=== PATIENT | female | born 1980 | race Two or more races ===

== ENCOUNTER 2020-05-10 11:01 | Outpatient (RCR) | payer MEDICARE, MEDICAID, OTHER, SELFPAY | END 2020-05-12 12:14 | disposition home or self-care (01) | LOC: HO.WCC 11:01 | PROVIDERS: PCP Internal Medicine; Visit Provider Physician Assistant Surgical | DX: Z09 Encounter for follow-up examination after completed treatment for conditions other than malignant neoplasm (principal); E66.01 Morbid (severe) obesity due to excess calories | CPT/HCPCS: 99212 ==

== ENCOUNTER 2020-07-28 07:58 | Emergency (ER) | payer MEDICARE, MEDICAID, SELFPAY ==
[2020-07-28 08:04] VITALS: BP 141/88; PULSE 90; RESP 16; TEMP 36.9; O2SAT 97; BMI 42.7
--- NOTE | 2020-07-28 08:19 | XR_ITS ---
EXAMINATION: XR CHEST CLINICAL INFORMATION: Cough COMPARISON: Chest radiographs 06/21/2019, 04/13/2019 TECHNIQUE: Portable upright AP x2 views of the chest was obtained. FINDINGS: The lungs are clear and there is no airspace consolidation or groundglass opacity or effusion. The costophrenic sulci are clear. The heart is normal in size. The vascularity is normal. The hilar and mediastinal contours are unremarkable. No acute bony abnormality. Widening right acromioclavicular joint present without elevation clavicle. There is calcific tendinosis distal left superior rotator cuff likely at infraspinatus. Surgical clips seen base of neck left of midline. XR/XR chest 1V IMPRESSION: Lungs clear.
--- NOTE | 2020-07-28 08:40 | ED_ITS ---
HPI - General Adult General Chief complaint: General Medical Stated complaint: asthma Time Seen by Provider: 07/28/20 08:19 Source: patient Mode of arrival: ambulatory Limitations: no limitations History of Present Illness HPI narrative: Patient presents to ED for chronic cough, runny nose, watery eyes and sneezing for month. Patient denies any swelling of lower extremities, calf pain, recent surgery, recent long travel, chest pain on inspiration, coughing up blood. Patient states mild chest discomfort only when she coughs. Patient states her allergies has worsened over the past month and exacerbating her cough and asthma. Related Data Previous Rx's Medication Instructions Recorded benzonatate [Tessalon Perles] 100 mg PO TID PRN #20 cap 07/28/20 loratadine [Claritin] 10 mg PO DAILY #10 tab 07/28/20 prednisone 40 mg PO DAILY #10 tab 07/28/20 Allergies Allergy/AdvReac Type Severity Reaction Status Date / Time benralizumab [From FASENRA] Allergy Unknown AIRWAY Verified 07/28/20 08:09 DISTRESS dog dander [DOGS] Allergy Unknown ASTHMA Verified 07/28/20 08:09 dupilumab [From DUPIXENT] Allergy Unknown SKIN Verified 07/28/20 08:09 RASH/INFECTION pollen extracts [POLLEN] Allergy Unknown RUNNY NOSE Verified 07/28/20 08:09 penicillin Allergy Unknown Rash Uncoded 07/28/20 08:09 Review of Systems Review of Systems: Yes all other systems are reviewed and are negative Constitutional: Constitutional: Reports as per HPI and Reports no additional constitutional complaints Eyes: Eyes: Reports as per HPI and Reports no additional eye complaints ENT: Reports system reviewed and no additional complaints, except as documented, Reports as per HPI and Reports nasal congestion Comments: sneeze Cardiovascular: Cardiovascular: Reports as per HPI and Reports no additional cardiovascular complaints Respiratory: Respiratory: Reports as per HPI, Reports no additional respiratory complaints and Reports cough Gastrointestinal: Gastrointestinal: Reports as per HPI and Reports no additional gastrointestinal complaints Musculoskeletal: Musculoskeletal: Reports no additional musculoskeletal complaints and Reports as per HPI Neurologic: Reports system reviewed and no additional complaints, except as documented and Reports as per HPI Psychiatric: Psychiatric: Reports no additional psychiatric complaints and Reports as per HPI PMF Past Medical History Medical History (Updated 07/28/20 @ 09:59 by MALIK Hagen) Asthma Fibromyalgia Social History Social History Smoking Status: Never smoker Use of substances other than those prescribed or required for medical reasons: No Advance Directives: No Advance Directives Information Provided: No Physical Exam Vital Signs: Vital Signs: Last Vital Signs Temp 98.5 F 07/28/20 08:04 Pulse 82 07/28/20 09:52 Resp 20 07/28/20 09:52 BP 135/83 07/28/20 09:52 Pulse Ox 100 07/28/20 09:52 Body Mass Index 42.7 Const: General: cooperative, healthy appearing, comfortable, no acute distress, well developed, alert, awake and Physically active Orientation/consciousness: patient oriented x3 HENMT: Head: Yes normal to inspection and Yes No palpable skull fracture present Ears: hearing grossly normal bilaterally, external ears normal and TM's normal bilaterally General nose exam: Normal external nose present and Normal nares present Face and sinus: Yes normal facial exam and Yes sinuses nontender Throat: Yes posterior oropharynx normal, Yes tonsils normal and Yes uvula midline Eyes: General: appearance normal, both eyes and all related structures Neck: Neck: Yes normal visual inspection, Yes full ROM, Yes no lymphadenopathy, Yes no meningeal signs, Yes trachea midline, Yes supple and No tender Chest: Chest palpation & inspection: normal inspection of the chest and normal palpation of entire chest wall Resp: Effort & Inspection: normal respiratory effort and able to speak in complete sentences Auscultation: clear to auscultation bilaterally Cardio: Jugular venous distension: no JVD Heart sounds: S1 normal heart sound present and S2 normal heart sound present GI: Inspection: Yes normal to inspection and No abdominal wall ecchymosis Palpation (GI): Soft to palpation, not firm, nontender, no guarding and not rigid : General: No CVA tenderness and Yes no CVA tenderness Back/Spine/Pelvis: Back: no CVA tenderness, No CVA tenderness and No back tenderness Skin: General skin exam: no rashes or lesions noted Neuro: General: patient oriented x3, gait normal, no meningeal signs and CN's II-XI intact bilaterally Cranial nerves: Yes CN's II-XII intact bilaterally Extrem: Other: Lower extremities negative for any swelling, pitting edema, calf tenderness, redness to indicate DVT, or CHF. General: Yes normal to inspection and Yes full ROM Psych: Appearance: grossly normal and well kempt Course Course Course Narrative: History physical exam indicate URI. Patient will be sent for chest x-ray and COVID swab. Patient vital signs stable. Patient is not in any respiratory distress. Lungs are clear. EKG normal Reevaluation(s) Reevaluation #1: Not suspecting PE or OK. perc score 0. history physical exam indicates URI. Will discharge with coughing medication. Time: 21:57 Medical Decision Making MDM Narrative Medical decision making narrative: URI. Allergic rhinitis induced Asthma Lab Data Labs: Lab Results 07/28/20 Range/Units 08:30 Coronavirus (PCR) NEGATIVE (Negative) Influenza Type A (PCR) NEGATIVE (Negative) Influenza Type B (PCR) NEGATIVE (Negative) RSV RNA Qual (PCR) NEGATIVE (Negative) ECG Data Interpretation: Normal sinus rhythm. Ventricular rate 80. PA interval 148. Cares duration 90. QTC 475. Negative STEMI. Discharge Plan Discharge Clinical Impression: URI (upper respiratory infection) Patient Disposition: Home, Self-Care Instructions: Asthma (ED), Upper Respiratory Infection (ED), Allergic Rhinitis (ED) Additional Instructions: Return to the ED immediately for chest pain on inspiration, coughing up blood, swelling of lower extremities, calf pain, fever, chills, or any other concerning symptoms. Prescriptions: New benzonatate [Tessalon Perles] 100 mg capsule 100 mg PO TID PRN (Reason: coughing) Qty: 20 RF: 0 loratadine [Claritin] 10 mg tablet 10 mg PO DAILY Qty: 10 RF: 0 prednisone 20 mg tablet 40 mg PO DAILY Qty: 10 RF: 0 Referrals: Ivonne Wilkerson DO [Primary Care Provider] - 2 days (Chronic URI symptoms for 1 month. COVID swab negative) Interventions: ED Discharge Assessment Last Done: 07/28/20 10:22 Discharge Date/Time: 07/28/20 10:23 Print Language: Vietnamese
[2020-07-28] MEDS: guaiFENesin 200 MG/10 ML 10 ML LIQUID PO (08:45)
[2020-07-28 09:25] LABS: Influenza A PCR NEGATIVE (Negative); Influenza B PCR NEGATIVE (Negative); Resp Syncy Virus RNA Qual PCR NEGATIVE (Negative); SARS COV2 PCR INHOUSE NEGATIVE (Negative)
[2020-07-28 09:52] VITALS: BP 135/83; PULSE 82; RESP 20; O2SAT 100
[2020-07-28] MEDS: Albuterol Sulfate 90 MCG 8 GM INHALER 4 PUFF INHALE (09:58)
--- NOTE | 2020-07-28 10:07 | ECG_ITS ---
Test Reason : SOB Blood Pressure : / mmHG Vent. Rate : 080 BPM Atrial Rate : 080 BPM P-R Int : 148 ms QRS Dur : 090 ms QT Int : 412 ms P-R-T Axes : 026 034 -01 degrees QTc Int : 475 ms Normal sinus rhythm with sinus arrhythmia Normal ECG When compared with ECG of 20-APR-2019 16:13, No significant change was found Referred By: Yan Hays Electronically Signed By:MICHELLE BARBER MD
--- NOTE | 2020-07-28 10:20 | PC.NURSE ---
Pt reports worsening chest tightness to 8/10, medicated with Albuterol inhaler as charted and EKG ordered/obtained.
== END 2020-07-28 10:23 | disposition home or self-care (01) ==
PROVIDERS: Physician Assistant; Emergency Provider Emergency Medicine Emergency Medical Services; PCP Internal Medicine
DX: J06.9 Acute upper respiratory infection, unspecified (principal); Z20.828 Contact with and (suspected) exposure to other viral communicable diseases; J45.909 Unspecified asthma, uncomplicated
CPT/HCPCS: 0241U; 71045; 93005; 99283; 99284

== ENCOUNTER 2020-08-01 13:28 | Emergency (ER) | payer MEDICARE, MEDICAID, SELFPAY ==
[2020-08-01 14:27] VITALS: PULSE 83; RESP 18; TEMP 36.9; O2SAT 97; BMI 42.7
--- NOTE | 2020-08-01 16:23 | ED_ITS ---
HPI - URI/Sore Throat General Chief Complaint: Upper Respiratory Symptoms Stated Complaint: covid swab Time Seen by Provider: 08/01/20 15:54 Source: patient Mode of arrival: ambulatory Limitations: no limitations History of Present Illness HPI Narrative: 39-year-old female with a past medical history of asthma, fibromyalgia, migraines here with cough and wheezing for the last week. The patient although she was seen here on July 28. She had a COVID test which was negative and chest x-ray which is unremarkable. She was sent home with prednisone for 5 days. She tells me that she is on her 2nd to last day but continues to have cough and wheezing. No productive cough. No fevers or chills or body aches. She is using her albuterol inhaler and nebulizer machine at home with continued symptoms. No shortness of breath or chest pain. MD elicited complaint: cough (and wheezing ) Pertinent past history: asthma Consistency: intermittent Severity: mild Able to tolerate fluids by mouth: Yes Exacerbating factors: exertion and speaking Relieving factors: rest Associated symptoms: denies other symptoms Treatments prior to arrival: none Related Data Previous Rx's Medication Instructions Recorded benzonatate [Tessalon Perles] 100 mg PO TID PRN #20 cap 07/28/20 loratadine [Claritin] 10 mg PO DAILY #10 tab 07/28/20 prednisone 40 mg PO DAILY #10 tab 07/28/20 azithromycin See Rx Instructions .ROUTE 08/01/20 .COMPLEX #6 tab Allergies Allergy/AdvReac Type Severity Reaction Status Date / Time benralizumab [From FASENRA] Allergy Unknown AIRWAY Verified 07/28/20 08:09 DISTRESS dog dander [DOGS] Allergy Unknown ASTHMA Verified 07/28/20 08:09 dupilumab [From DUPIXENT] Allergy Unknown SKIN Verified 07/28/20 08:09 RASH/INFECTION pollen extracts [POLLEN] Allergy Unknown RUNNY NOSE Verified 07/28/20 08:09 penicillin Allergy Unknown Rash Uncoded 07/28/20 08:09 Review of Systems Review of Systems: Yes all other systems are reviewed and are negative Constitutional: Constitutional: Reports no additional constitutional complaints, Denies body ache(s), Denies chills, Denies fever(s), Denies headache(s) and Denies weakness Eyes: Eyes: Reports no additional eye complaints and Denies change in vision ENT: Reports system reviewed and no additional complaints, except as documented, Denies dizziness, Denies headache(s), Denies nasal congestion, Denies nasal discharge and Denies neck pain Cardiovascular: Cardiovascular: Reports no additional cardiovascular complaints, Denies chest pain, Denies leg edema and Denies dyspnea Respiratory: Respiratory: Reports no additional respiratory complaints, Reports cough and Denies dyspnea Gastrointestinal: Gastrointestinal: Reports no additional gastrointestinal complaints, Denies abdominal pain, Denies diarrhea, Denies nausea and Denies vomiting Genitourinary: Genitourinary: Reports no additional female genitourinary complaints and Denies urinary incontinence Musculoskeletal: Musculoskeletal: Reports no additional musculoskeletal complaints, Denies back pain, Denies arthralgias, Denies joint swelling, Denies neck pain, Denies numbness and Denies tingling Integumentary/Breasts: Skin/Breast: Reports system reviewed and no additional complaints, except as docu and Denies rash Neurologic: Denies Abnormal speech present, Denies dizziness, Denies headache(s), Denies numbness, Denies tingling and Denies weakness PMF Past Medical History Attestation statement: The following information was validated with the patient. Source: old records reviewed and nursing notes reviewed Medical History Asthma Fibromyalgia Migraines Social History Social History Smoking Status: Former smoker Use of substances other than those prescribed or required for medical reasons: No Advance Directives: No Advance Directives Information Provided: Yes Physical Exam Vital Signs: Vital Signs: Last Vital Signs Temp 98.5 F 08/01/20 14:27 Pulse 83 08/01/20 14:27 Resp 18 08/01/20 14:27 Pulse Ox 97 08/01/20 14:27 Body Mass Index 42.7 Const: General: cooperative, healthy appearing, comfortable and no acute distress Orientation/consciousness: patient oriented x3 Limitations: no limitations HENMT: Head: Yes normal to inspection Ears: hearing grossly normal bilaterally General nose exam: Normal external nose present Face and sinus: Yes normal facial exam Mouth: Normal oral and palatal mucosa present Throat: Yes posterior oropharynx normal Eyes: General: appearance normal, both eyes and all related structures Pupils: Equal, round and reactive pupils present Neck: Neck: Yes normal visual inspection Chest: Chest palpation & inspection: normal inspection of the chest Resp: Other: Inspiratory and expiratory wheezing throughout. Speaking full sentences in no apparent distress Effort & Inspection: normal respiratory effort Cardio: Rate: regular rate Rhythm: regular rhythm Peripheral pulses: Peripheral pulses 2+ throughout GI: Inspection: Yes normal to inspection Palpation (GI): Soft to palpation and nontender Auscultation: normal bowel sounds Back/Spine/Pelvis: Thoracic/Lumbar Spine: thoracic and lumbar spine normal to inspection Skin: General skin exam: no rashes or lesions noted Neuro: General: patient oriented x3, no focal motor deficits and normal sensation to monofilament Cranial nerves: Yes Equal, round and reactive pupils present Cognition (Neuro): normal cognition Speech: No Abnormal speech present Gait exam (Neuro): Normal gait present Motor exam (neuro): 5/5 motor strength present throughout Extrem: General: Yes normal to inspection Course Course Course Narrative: 39-year-old female with a past medical history of asthma here with continued cough and wheezing despite being on prednisone for 4 days. No new symptoms. Has inspiratory and expiratory wheezing throughout with stable vital signs. Will check COVID test, chest x-ray, give DuoNeb amd re-assess. 1720 COVID test negative, chest x-ray unremarkable. Urine as negative. Patient is feeling improved after receiving DuoNeb. Will treat for bronchitis a 5 day course of azithromycin. Patient to finish her prednisone course and then discuss with her primary care doctor. Reviewed worrisome signs and symptoms and when to return to the emergency department. Comfortable discharge home. MDM - URI/Sore Throat Medical Records Attestation: I reviewed the patient's medical records. Lab Data Attestation: I reviewed the patient's lab results. Labs: Lab Results 08/01/20 08/01/20 Range/Units 15:58 16:38 Urine Color YELLOW Urine Appearance CLEAR Urine pH 6.5 (5.0-8.0) Ur Specific [place] 1.010 (1.005-1.025) Urine Protein NEG (NEG-TRACE) MG/DL Urine Glucose (UA) NEG (NEG) MG/DL Urine Ketones NEG (NEG) MG/DL Urine Blood NEG (NEG) Urine Nitrite NEG (NEG) Ur Leukocyte Esterase NEG (NEG) Urine Test NEGATIVE (NEGATIVE) Coronavirus (PCR) NEGATIVE (Negative) Influenza Type A (PCR) NEGATIVE (Negative) Influenza Type B (PCR) NEGATIVE (Negative) RSV RNA Qual (PCR) NEGATIVE (Negative) Imaging Data Chest x-ray: Attestation: I personally reviewed and interpreted this imaging study as follows: Radiologist's impression: [address] [address] XRay Report Signed Patient: Mercy TavaresMR#: [id number] : 1980Acct:[id number] Age/Sex: 39 / FADM Date: 08/01/20 Loc: HO.ED Attending Dr: Ordering Physician: RUSTY ROE NP Date of Service: 08/01/20 Procedure(s): XR chest 1V Accession Number(s): [id number] cc: RUSTY ROE NP~ EXAMINATION: XR CHEST CLINICAL INFORMATION: Cough, wheezing COMPARISON: Chest radiographs 07/28/2020, 06/21/2019 TECHNIQUE: Portable upright AP view of the chest was obtained. FINDINGS: Patient is lordotically position. There are low lung volumes. The lungs are clear and the vascularity is normal. There is no airspace elevation or groundglass opacity or effusion. The heart is normal in size. The hilar and mediastinal contours are normal. No acute bony abnormality. Again, there are surgical clips base neck left of midline and calcific tendinosis adjacent to left humeral head. XR/XR chest 1V IMPRESSION: Unremarkable examination. Discharge Plan Discharge Clinical Impression: Bronchitis Patient Disposition: Home, Self-Care Instructions: Acute Bronchitis (ED) Additional Instructions: Continue your prednisone and inhaler at home Start antibiotics today Discussed with your primary care doctor tomorrow as he might need to do another round of prednisone Prescriptions: New azithromycin 250 mg tablet See Rx Instructions .ROUTE .COMPLEX Qty: 6 RF: 0 No Action benzonatate [Tessalon Perles] 100 mg capsule 100 mg PO TID PRN (Reason: coughing) Qty: 20 RF: 0 loratadine [Claritin] 10 mg tablet 10 mg PO DAILY Qty: 10 RF: 0 prednisone 20 mg tablet 40 mg PO DAILY Qty: 10 RF: 0 Referrals: Physician,Unknown [Primary Care Provider] - 2 days Interventions: ED Discharge Assessment Last Done: 08/01/20 17:26 Discharge Date/Time: 08/01/20 17:26
[2020-08-01] MEDS: Albuterol/Iprat 2.5/0.5MG 3 ML AMPUL.NEB INHALE (16:26)
[2020-08-01 16:27] VITALS: O2SAT 95
[2020-08-01 16:47] LABS: Influenza A PCR NEGATIVE (Negative); Influenza B PCR NEGATIVE (Negative); Resp Syncy Virus RNA Qual PCR NEGATIVE (Negative); SARS COV2 PCR INHOUSE NEGATIVE (Negative)
[2020-08-01 16:48] LABS: Glucose Urine UA NEG (NEG); Leukocyte Esterase Urine NEG (NEG); Nitrite Urine NEG (NEG); PH 6.5 (5.0-8.0); Urine Blood NEG (NEG); Urine Ketones NEG (NEG); Urine Protein NEG (NEG-TRACE)
[2020-08-01 16:50] LABS: Appearance Urine CLEAR; Color Urine YELLOW
[2020-08-01 16:52] LABS: UPreg QC Valid YES; Urine Pregnancy NEGATIVE (NEGATIVE)
== END 2020-08-01 17:26 | disposition home or self-care (01) ==
PROVIDERS: Nurse Practitioner Family; Emergency Provider Emergency Medicine Emergency Medical Services
DX: J40 Bronchitis, not specified as acute or chronic (principal); R05 Cough; Z87.891 Personal history of nicotine dependence; Z79.899 Other long term (current) drug therapy; Z20.828 Contact with and (suspected) exposure to other viral communicable diseases
CPT/HCPCS: 0241U; 71045; 81003; 81025; 94640; 99284

== ENCOUNTER 2020-08-29 18:45 | Emergency (ER) | payer MEDICARE, OTHER, SELFPAY ==
[2020-08-29 18:55] VITALS: BP 132/76; PULSE 109; RESP 20; O2SAT 98; BMI 41.4
--- NOTE | 2020-08-29 19:13 | CT_ITS ---
EXAMINATION: CT ANGIOGRAM OF THE CHEST WITH AND WITHOUT CONTRAST (CT PULMONARY ANGIOGRAM FOR PE) CLINICAL INFORMATION: Reason for Exam elevated ddimer COMPARISON: Chest radiograph 08/01/2020, CT abdomen pelvis 03/06/2020 and CTA chest 03/04/2016 TECHNIQUE: Prior to contrast administration, noncontrast localization images were obtained. Subsequently, multidetector volumetric imaging was performed from the thoracic inlet to below the diaphragms following the administration of 65 mL Omnipaque 350 intravenous contrast. No contrast reaction reported Sagittal, coronal, and MIP oblique sagittal reformatted images were obtained on the CT workstation, uploaded to PACS, and reviewed. This CT examination was performed using dose optimization techniques as appropriate, variously including the following: *Automated exposure control *Adjustment of mA and/or kV according to patient size (this includes techniques or standardized protocols for targeted exams where dose is matched to indication/reason for exam; i.e. extremities or head) *Use of iterative reconstruction technique Total exam dose-length product 566 mGy-cm FINDINGS: QUALITY OF STUDY/CONTRAST BOLUS: Satisfactory. PULMONARY ARTERIES: No central or segmental pulmonary emboli. . THORACIC AORTA: No aneurysm or dissection. Two-vessel branching pattern of the aortic arch is seen with common origin to the innominate and left carotid LUNG: Scattered multifocal predominantly peripheral groundglass opacities are present throughout the lungs. Findings are worrisome for Covid 19 pulmonary disease. PLEURA: No pleural effusion or pneumothorax. MEDIASTINUM: Patient status post left hemithyroidectomy. Normal heart size. No pericardial effusion. No hilar or mediastinal lymphadenopathy. No evidence of septal bowing or right heart strain. CHEST WALL/AXILLA: No axillary or internal mammary lymphadenopathy. OSSEOUS STRUCTURES: No acute or suspicious osseous abnormality. Underexpanded sclerotic density seen inferior endplate of midthoracic vertebral body unchanged when compared to 2016. UPPER ABDOMEN: Hepatic steatosis is present. Patient status post cholecystectomy. No reflux of contrast into the hepatic veins to suggest elevated right heart pressures. CT/CT angio chest PE protocol IMPRESSION: 1. No evidence of pulmonary emboli. 2. Multifocal groundglass opacities worrisome for Covid 19 pulmonary disease. VTE: negative
--- NOTE | 2020-08-29 19:14 | ECG_ITS ---
Test Reason : SOB Blood Pressure : / mmHG Vent. Rate : 096 BPM Atrial Rate : 096 BPM P-R Int : 146 ms QRS Dur : 086 ms QT Int : 360 ms P-R-T Axes : 041 041 004 degrees QTc Int : 454 ms Normal sinus rhythm Possible Left atrial enlargement Borderline ECG When compared with ECG of 28-JUL-2020 10:12, No significant change was found Referred By: Miguel Angel Ren Electronically Signed By:Harvey Mancia
[2020-08-29 19:26] LABS: MANUAL DIFF FLAG NO
[2020-08-29 19:28] LABS: Basophils Percent Auto 0.2 % (0-2); Eosinophils Absolute Auto 0.1 X10*3/uL (0.0-0.4); Eosinophils Percent Auto 2.3 % (0-4); Hemoglobin 13.5 g/dl (12.0-16.0); Imm Gran Abs Auto 0.01 X10*3/uL (0.00-0.03); Imm Gran Pct Auto 0.2 % (0.0-0.4); Lymphocytes Absolute Auto 1.6 X10*3/uL (1.2-4.9); Lymphocytes Percent Auto 30.9 % (20-40); Mean Corpuscular HGB Conc 32.1 g/dl (31.0-35.0); Mean Corpuscular Hemoglobin 28.4 pg (27.0-33.0); Mean Corpuscular Volume 88.2 fL (80-98); Mean Platelet Volume 10.8 fL (9.4-12.3); Monocytes Absolute Auto 0.5 X10*3/uL (0.1-1.2); Monocytes Percent Auto 10.4 % (2-11); Neutrophils Absolute Auto 2.9 X10*3/uL (2.0-8.3); Platelet Count 245 X10*3/uL (160-400); Red Blood Count 4.76 X10*6/uL (4.20-5.50); Red Cell Distribution Width 13.6 % (11.0-16.0); White Blood Count 5.2 X10*3/uL (4.8-10.8)
[2020-08-29 19:34] LABS: Prothrombin Time 12.2 SEC (10.8-13.0)
[2020-08-29 19:34] LABS: Glucose Urine UA NEG (NEG); Leukocyte Esterase Urine NEG (NEG); Nitrite Urine NEG (NEG); PH 6.5 (5.0-8.0); Urine Blood NEG (NEG); Urine Ketones NEG (NEG); Urine Protein NEG (NEG-TRACE)
[2020-08-29 19:37] LABS: Partial Thromboplastin Time 36.9 SEC (24.1-38.0)
[2020-08-29 19:37] LABS: Color Urine YELLOW
[2020-08-29 19:38] LABS: Appearance Urine CLEAR; UPreg QC Valid YES; Urine Pregnancy NEGATIVE (NEGATIVE)
[2020-08-29 19:42] LABS: Bacteria Urine TRACE /LPF; Mucus Urine TRACE /LPF; RBC Urine 0-2 /HPF (0); Squamous Epithelial Cell Urine TRACE /LPF; WBC Urine 0-2 /HPF (0-4)
[2020-08-29 19:54] LABS: Alanine Aminotransferase 24 U/L (0-31); Albumin Level 4.2 g/dL (3.5-5.0); Alkaline Phosphatase 56 U/L (39-117); Anion Gap 12 (12-20); Aspartate Amino Transferase 23 U/L (5-31); Bilirubin Total 0.3 mg/dL (0.0-1.0); Blood Urea Nitrogen 9 mg/dL (9-16); C Reactive Protein 1.01 mg/dL (< or = 0.50); Carbon Dioxide 27 mmol/L (22-29); Chloride 105 mmol/L (96-108); Creatinine Clr Calc Pharmacy 135.3; Estimated Glomerular Filt Rate > 60; Glucose Random 89 mg/dL (60-115); Lactate Dehydrogenase 208 U/L (122-220); Potassium 3.8 mmol/l (3.3-5.1); Sodium 140 mmol/L (135-145); Total Protein 7.2 g/dL (6.5-8.0)
[2020-08-29 19:57] LABS: Troponin-I High Sensitivity < 3.5 ng/L (<3.5-17.0)
[2020-08-29 19:59] LABS: Lactic Acid 0.7 mmol/L (0.5-2.0)
[2020-08-29 20:12] LABS: Procalcitonin 0.06 ng/mL
[2020-08-29 20:14] LABS: Ferritin 74 ng/mL (10-250)
[2020-08-29 20:32] LABS: D Dimer 719 NG/ML
[2020-08-29] MEDS: iohexoL 350 MG/ML 100 ML INFUS..BTL 65 ML IV (20:49)
[2020-08-29 21:24] VITALS: BP 122/68; PULSE 101; RESP 14; TEMP 5486.6; TEMP 9908; O2SAT 95
--- NOTE | 2020-08-29 21:29 | ED_ITS ---
HPI - Recheck/Abnormal Lab/Rx General Chief Complaint: Recheck/Abnormal Lab/Rx Stated Complaint: covid positive Time Seen by Provider: 08/29/20 19:13 Source: patient Mode of arrival: ambulatory Limitations: no limitations History of Present Illness HPI narrative: 39-year-old female below noted past medical history presenting today with complaint of states she tested positive for COVID-19 2 days ago via her primary care doctor office today she was called because 1 of her blood test they did was elevated (D-dimer) this level is not available and she was slightly tachycardic at 01:10 concern for pulmonary embolism. She reports slight chest pain on the right side otherwise no shortness of breath. Otherwise hem odynamically stable upon arrival pulse ox 99% on room air. Symptoms since prior visit: improved Associated symptoms: chest pain Related Data Previous Rx's Medication Instructions Recorded benzonatate [Tessalon Perles] 100 mg PO TID PRN #20 cap 07/28/20 loratadine [Claritin] 10 mg PO DAILY #10 tab 07/28/20 prednisone 40 mg PO DAILY #10 tab 07/28/20 azithromycin See Rx Instructions .ROUTE 08/01/20 .COMPLEX #6 tab Allergies Allergy/AdvReac Type Severity Reaction Status Date / Time benralizumab [From FASENRA] Allergy Unknown AIRWAY Verified 07/28/20 08:09 DISTRESS dog dander [DOGS] Allergy Unknown ASTHMA Verified 07/28/20 08:09 dupilumab [From DUPIXENT] Allergy Unknown SKIN Verified 07/28/20 08:09 RASH/INFECTION pollen extracts [POLLEN] Allergy Unknown RUNNY NOSE Verified 07/28/20 08:09 penicillin Allergy Unknown Rash Uncoded 07/28/20 08:09 Review of Systems Review of Systems: Constitutional: No Weight loss, No Fever, + Chills, No Night Sweats, No Fatigue, No Malaise ENT/Mouth: No Hearing loss, No Ear Pain, No Nasal Congestion, No Sinus Pain, No Hoarseness, No sore throat, No Rhinorrhea, No Swallowing Difficulty Eyes: No Eye Pain, No Swelling, No Redness, No Foreign Body, No Discharge, No Vision Changes Cardiovascular: + Chest Pain, No SOB, No Dyspnea on Exertion, No Orthopnea, No Edema, No Palpitations Respiratory: No Cough, No Sputum, No Wheezing, No Smoke Exposure, No Dyspnea Gastrointestinal: No Nausea, No Vomiting, No Diarrhea, No Constipation, No abdominal Pain, No Hematochezia, No Melena Genitourinary: no irregular bleeding, No Dysuria, No Urinary Frequency, No Hematuria, No Urinary Incontinence, No Urgency, No Flank Pain Musculoskeletal: No joint pain, + Myalgias, No Joint Swelling Skin: No Skin Lesions, No rash Neuro: No Weakness, No Numbness, No Paresthesias, No Loss of Consciousness, No Dizziness, No Headache Psych: No Social Issues Heme/Lymph: No Bruising, No Bleeding,No Lymphadenopathy Endocrine: No Polyuria, No Polydipsia, No Temperature Intolerance Yes all other systems are reviewed and are negative [facility] Past Medical History Medical History Asthma Fibromyalgia Migraines Social History Social History Smoking Status: Former smoker Advance Directives: No Advance Directives Information Provided: Yes Physical Exam Vital Signs: Vital Signs: Last Vital Signs Temp 9908 F H 08/29/20 21:24 Pulse 101 H 08/29/20 21:24 Resp 14 08/29/20 21:24 BP 122/68 08/29/20 21:24 Pulse Ox 95 08/29/20 21:24 Body Mass Index 41.4 Reviewed Temperature correction above Temperature 99.08 F Const: General: cooperative and healthy appearing; No acute distress or intoxicated appearing Nutritional Appearance: average body habitus Orientation/consciousness: patient oriented x3 HENMT: Head: Yes normal to inspection Ears: hearing grossly normal bilaterally Eyes: General: appearance normal, both eyes and all related structures Visual Hdz: normal visual hdz by confrontation Neck: Neck: Yes normal visual inspection, No positive Brudzinski's sign, No positive Kernig's sign and No tender Thyroid: Thyroid normal Chest: Chest palpation & inspection: normal inspection of the chest Resp: Effort & Inspection: normal respiratory effort Auscultation: clear to auscultation bilaterally Cardio: Jugular venous distension: no JVD Rhythm: regular rhythm Heart sounds: S1 normal heart sound present and S2 normal heart sound present GI: Inspection: Yes normal to inspection Percussion: Yes normal to percussion Auscultation: normal bowel sounds : General: Yes no CVA tenderness Back/Spine/Pelvis: Back: no CVA tenderness Skin: General skin exam: no rashes or lesions noted Neuro: General: patient oriented x3 Extrem: General: Yes normal to inspection MDM - Recheck/Abnormal Lab/Rx MDM Narrative Medical decision making narrative: In review 39-year-old female above history presenting from primary care doctor's office where she tested positive and also having right-sided chest pain very reproducible on exam as well as she had lab w ork done that showed a elevated D-dimer unsure of this value. It was repeated here 719 she was slightly tachycardic when she arrived at 101. No other risk factors for DVT/pulmonary embolism perc positive given the elevated heart rate and increased risk given the positive COVID does workup was pursued including a CT of the chest rule out PE and was negative. Patient has remained stable in the emergency room without complaints. Ambulatory with status gait hemodynamically stable with ambulation no symptomatic hypoxia. Pulse ox 98-99% on room air. Heart rate 88. She was given prednisone, albuterol inhaler and Z-Navi by her primary care doctor yesterday which she is taking. Medical Records Attestation: I reviewed the patient's medical records. Lab Data Attestation: I reviewed the patient's lab results. Result diagrams: 08/29/20 19:18 08/29/20 19:18 Labs: Lab Results 08/29/20 08/29/20 08/29/20 Range/Units 19:18 19:18 19:18 WBC 5.2 (4.8-10.8) X10*3/uL RBC 4.76 (4.20-5.50) X10*6/uL Hgb 13.5 (12.0-16.0) g/dl Hct 42.0 (37-47) % MCV 88.2 (80-98) fL MCH 28.4 (27.0-33.0) pg MCHC 32.1 (31.0-35.0) g/dl RDW 13.6 (11.0-16.0) % Plt Count 245 (160-400) X10*3/uL MPV 10.8 (9.4-12.3) fL Immature Gran % (Auto) 0.2 (0.0-0.4) % Neut % (Auto) 56.0 (45-73) % Lymph % (Auto) 30.9 (20-40) % Hans[place] % (Auto) 10.4 (2-11) % Eos % (Auto) 2.3 (0-4) % Baso % (Auto) 0.2 (0-2) % Lymph # (Auto) 1.6 (1.2-4.9) X10*3/uL Hanson # (Auto) 0.5 (0.1-1.2) X10*3/uL Eos # (Auto) 0.1 (0.0-0.4) X10*3/uL Baso # (Auto) 0.0 (0.0-0.2) X10*3/uL Abs Immat Gran (auto) 0.01 (0.00-0.03) X10*3/uL Absolute Neuts (auto) 2.9 (2.0-8.3) X10*3/uL Absolute Nucleated RBC 0.000 (0.0-0.012) X10*3/uL Nucleated RBC % (auto) 0.0 (0.0-0.2) /100WBC PT 12.2 (10.8-13.0) SEC INR 1.0 (0.9-1.1) APTT 36.9 (24.1-38.0) SEC D-Dimer 719 NG/ML Sodium 140 (135-145) mmol/L Potassium 3.8 (3.3-5.1) mmol/l Chloride 105 (96-108) mmol/L Carbon Dioxide 27 (22-29) mmol/L Anion Gap 12 (12-20) BUN 9 (9-16) mg/dL Creatinine 0.71 (0.5-1.4) mg/dL Estim Creat Clear Calc 135.3 Estimated GFR > 60 Random Glucose 89 (60-115) mg/dL Lactic Acid (0.5-2.0) mmol/L Calcium 9.0 (8.4-10.2) mg/dL Ferritin 74 (10-250) ng/mL Total Bilirubin 0.3 (0.0-1.0) mg/dL AST 23 (5-31) U/L ALT 24 (0-31) U/L Alkaline Phosphatase 56 (39-117) U/L Lactate Dehydrogenase 208 (122-220) U/L Troponin I High Sens (<3.5-17.0) ng/L C-Reactive Protein 1.01 H (< or = 0.50) mg/dL Total Protein 7.2 (6.5-8.0) g/dL Albumin 4.2 (3.5-5.0) g/dL Procalcitonin ng/mL Urine Color Urine Appearance Urine pH (5.0-8.0) Ur Specific [place] (1.005-1.025) Urine Protein (NEG-TRACE) MG/DL Urine Glucose (UA) (NEG) MG/DL Urine Ketones (NEG) MG/DL Urine Blood (NEG) Urine Nitrite (NEG) Ur Leukocyte Esterase (NEG) Urine RBC (0) /HPF Urine WBC (0-4) /HPF Ur Squamous Epith Cells /LPF Urine Bacteria /LPF Urine Mucus /LPF Urine Test (NEGATIVE) 08/29/20 08/29/20 08/29/20 Range/Units 19:18 19:18 19:27 WBC (4.8-10.8) X10*3/uL RBC (4.20-5.50) X10*6/uL Hgb (12.0-16.0) g/dl Hct (37-47) % MCV (80-98) fL MCH (27.0-33.0) pg MCHC (31.0-35.0) g/dl RDW (11.0-16.0) % Plt Count (160-400) X10*3/uL MPV (9.4-12.3) fL Immature Gran % (Auto) (0.0-0.4) % Neut % (Auto) (45-73) % Lymph % (Auto) (20-40) % Hanson % (Auto) (2-11) % Eos % (Auto) (0-4) % Baso % (Auto) (0-2) % Lymph # (Auto) (1.2-4.9) X10*3/uL Hans[place] # (Auto) (0.1-1.2) X10*3/uL Eos # (Auto) (0.0-0.4) X10*3/uL Baso # (Auto) (0.0-0.2) X10*3/uL Abs Immat Gran (auto) (0.00-0.03) X10*3/uL Absolute Neuts (auto) (2.0-8.3) X10*3/uL Absolute Nucleated RBC (0.0-0.012) X10*3/uL Nucleated RBC % (auto) (0.0-0.2) /100WBC PT (10.8-13.0) SEC INR (0.9-1.1) APTT (24.1-38.0) SEC D-Dimer NG/ML Sodium (135-145) mmol/L Potassium (3.3-5.1) mmol/l Chloride (96-108) mmol/L Carbon Dioxide (22-29) mmol/L Anion Gap (12-20) BUN (9-16) mg/dL Creatinine (0.5-1.4) mg/dL Estim Creat Clear Calc Estimated GFR Random Glucose (60-115) mg/dL Lactic Acid 0.7 (0.5-2.0) mmol/L Calcium (8.4-10.2) mg/dL Ferritin (10-250) ng/mL Total Bilirubin (0.0-1.0) mg/dL AST (5-31) U/L ALT (0-31) U/L Alkaline Phosphatase (39-117) U/L Lactate Dehydrogenase (122-220) U/L Troponin I High Sens < 3.5 (<3.5-17.0) ng/L C-Reactive Protein (< or = 0.50) mg/dL Total Protein (6.5-8.0) g/dL Albumin (3.5-5.0) g/dL Procalcitonin 0.06 ng/mL Urine Color Urine Appearance Urine pH (5.0-8.0) Ur Specific [place] (1.005-1.025) Urine Protein (NEG-TRACE) MG/DL Urine Glucose (UA) (NEG) MG/DL Urine Ketones (NEG) MG/DL Urine Blood (NEG) Urine Nitrite (NEG) Ur Leukocyte Esterase (NEG) Urine RBC (0) /HPF Urine WBC (0-4) /HPF Ur Squamous Epith Cells /LPF Urine Bacteria /LPF Urine Mucus /LPF Urine Test (NEGATIVE) 08/29/20 Range/Units 19:27 WBC (4.8-10.8) X10*3/uL RBC (4.20-5.50) X10*6/uL Hgb (12.0-16.0) g/dl Hct (37-47) % MCV (80-98) fL MCH (27.0-33.0) pg MCHC (31.0-35.0) g/dl RDW (11.0-16.0) % Plt Count (160-400) X10*3/uL MPV (9.4-12.3) fL Immature Gran % (Auto) (0.0-0.4) % Neut % (Auto) (45-73) % Lymph % (Auto) (20-40) % Hanson % (Auto) (2-11) % Eos % (Auto) (0-4) % Baso % (Auto) (0-2) % Lymph # (Auto) (1.2-4.9) X10*3/uL [place] # (Auto) (0.1-1.2) X10*3/uL Eos # (Auto) (0.0-0.4) X10*3/uL Baso # (Auto) (0.0-0.2) X10*3/uL Abs Immat Gran (auto) (0.00-0.03) X10*3/uL Absolute Neuts (auto) (2.0-8.3) X10*3/uL Absolute Nucleated RBC (0.0-0.012) X10*3/uL Nucleated RBC % (auto) (0.0-0.2) /100WBC PT (10.8-13.0) SEC INR (0.9-1.1) APTT (24.1-38.0) SEC D-Dimer NG/ML Sodium (135-145) mmol/L Potassium (3.3-5.1) mmol/l Chloride (96-108) mmol/L Carbon Dioxide (22-29) mmol/L Anion Gap (12-20) BUN (9-16) mg/dL Creatinine (0.5-1.4) mg/dL Estim Creat Clear Calc Estimated GFR Random Glucose (60-115) mg/dL Lactic Acid (0.5-2.0) mmol/L Calcium (8.4-10.2) mg/dL Ferritin (10-250) ng/mL Total Bilirubin (0.0-1.0) mg/dL AST (5-31) U/L ALT (0-31) U/L Alkaline Phosphatase (39-117) U/L Lactate Dehydrogenase (122-220) U/L Troponin I High Sens (<3.5-17.0) ng/L C-Reactive Protein (< or = 0.50) mg/dL Total Protein (6.5-8.0) g/dL Albumin (3.5-5.0) g/dL Procalcitonin ng/mL Urine Color YELLOW Urine Appearance CLEAR Urine pH 6.5 (5.0-8.0) Ur Specific [place] 1.020 (1.005-1.025) Urine Protein NEG (NEG-TRACE) MG/DL Urine Glucose (UA) NEG (NEG) MG/DL Urine Ketones NEG (NEG) MG/DL Urine Blood NEG (NEG) Urine Nitrite NEG (NEG) Ur Leukocyte Esterase NEG (NEG) Urine RBC 0-2 (0) /HPF Urine WBC 0-2 (0-4) /HPF Ur Squamous Epith Cells TRACE /LPF Urine Bacteria TRACE /LPF Urine Mucus TRACE /LPF Urine Test NEGATIVE (NEGATIVE) Imaging Data CTA Chest PE : Radiologist's impression: [address] Scan ReportSigned Patient: Mercy TavaresMR#: [id number]: 1980Acct:[id number]/Sex: 39 / FADM Date: 08/29/20Loc: [address]: Ordering Physician: Miguel Angel Ren NP Date of Service: 08/29/20 Procedure(s): CT angio chest PE protocol Accession Number(s): [id number] cc: Miguel Angel Ren NP~ EXAMINATION: CT ANGIOGRAM OF THE CHEST WITH AND WITHOUT CONTRAST (CT PULMONARY ANGIOGRAM FOR PE) CLINICAL INFORMATION: Reason for Exam elevated ddimer COMPARISON: Chest radiograph 08/01/2020, CT abdomen pelvis 03/06/2020 and CTA chest 03/04/2016 TECHNIQUE: Prior to contrast administration, noncontrast localization images were obtained. Subsequently, multidetector volumetric imaging was performed from the thoracic inlet to below the diaphragms following the administration of 65 mL Omnipaque 350 intravenous contrast. No contrast reaction reported Sagittal, coronal, and MIP oblique sagittal reformatted images were obtained on the CT workstation, uploaded to PACS, and reviewed. This CT examination was performed using dose optimization techniques as appropriate, variously including the following: *Automated exposure control *Adjustment of mA and/or kV according to patient size (this includes techniques or standardized protocols for targeted exams where dose is matched to indication/reason for exam; i.e. extremities or head) *Use of iterative reconstruction technique Total exam dose-length product 566 mGy-cm FINDINGS: QUALITY OF STUDY/CONTRAST BOLUS: Satisfactory. PULMONARY ARTERIES: No central or segmental pulmonary emboli. . THORACIC AORTA: No aneurysm or dissection. Two-vessel branching pattern of the aortic arch is seen with common origin to the innominate and left carotid LUNG: Scattered multifocal predominantly peripheral groundglass opacities are present throughout the lungs. Findings are worrisome for Covid 19 pulmonary disease. PLEURA: No pleural effusion or pneumothorax. MEDIASTINUM: Patient status post left hemithyroidectomy. Normal heart size. No pericardial effusion. No hilar or mediastinal lymphadenopathy. No evidence of septal bowing or right heart strain. CHEST WALL/AXILLA: No axillary or internal mammary lymphadenopathy. OSSEOUS STRUCTURES: No acute or suspicious osseous abnormality. Underexpanded sclerotic density seen inferior endplate of midthoracic vertebral body unchanged when compared to 2016. UPPER ABDOMEN: Hepatic steatosis is present. Patient status post cholecystectomy. No reflux of contrast into the hepatic veins to suggest elevated right heart pressures. CT/CT angio chest PE protocol IMPRESSION: 1. No evidence of pulmonary emboli. 2. Multifocal groundglass opacities worrisome for Covid 19 pulmonary disease. VTE: negative Dictated By:JOSIE ESPINAL MDSigned By:<Electronically signed by JOSIE ESPINAL MD in [place]>08/29/202111 DD/ 12TD/TT: [employer] Operator: SS ECG Data Interpretation: Normal sinus rhythm Possible Left atrial enlargement Borderline ECG When compared with ECG of 28-JUL-2020 10:12, No significant change was found Discharge Plan Discharge Clinical Impression: COVID-19 Patient Disposition: Home, Self-Care Instructions: COVID-19 (Coronavirus Disease 2019) (ED) Additional Instructions: Self-isolation Social distancing Drink plenty of fluids Take medication as previously prescribed Your CAT scan shows findings consistent with COVID-19 Indeed not show any evidence of pulmonary embolism Your blood work is otherwise overall stable You can monitor home oxygen level via pulse oximeter you can purchase [id number] Return to emergency room again if you have any chest pain or worsening shortness of breath. Do a well visit with her primary care doctor in 3-4 days via phone Thank you Prescriptions: No Action benzonatate [Tessalon Perles] 100 mg capsule 100 mg PO TID PRN (Reason: coughing) Qty: 20 RF: 0 loratadine [Claritin] 10 mg tablet 10 mg PO DAILY Qty: 10 RF: 0 prednisone 20 mg tablet 40 mg PO DAILY Qty: 10 RF: 0 azithromycin 250 mg tablet See Rx Instructions .ROUTE .COMPLEX Qty: 6 RF: 0 Referrals: ED Physician,Generic [Physician] - 1 week (Your primary care doctor as needed) Interventions: ED Discharge Assessment Last Done: 08/29/20 21:57 Discharge Date/Time: 08/29/20 21:59
== END 2020-08-29 21:59 | disposition home or self-care (01) ==
PROVIDERS: Nurse Practitioner Primary Care; Emergency Provider Emergency Medicine
DX: U07.1 COVID-19 (principal); J45.909 Unspecified asthma, uncomplicated
CPT/HCPCS: 36415; 71275; 80053; 81001; 81025; 82728; 83605; 83615; 84145; 84484; 85025; 85379; 85610; 85730; 86140; 93005; 99283; 99284; Q9967

== ENCOUNTER 2021-06-23 16:45 | Emergency (ER) | payer MEDICARE, OTHER, SELFPAY ==
--- NOTE | ~2021-06-23 | XR_ITS ---
EXAMINATION: XR CHEST CLINICAL INFORMATION: Syncope. Loss of consciousness. Anterior chest discomfort. COMPARISON: Chest x-ray 08/01/2020 TECHNIQUE: Frontal view of the chest was obtained. 6:50 PM FINDINGS: No significant abnormality is noted involving the heart, lungs, mediastinum, bony thorax or soft tissues. Surgical clips left side of neck. XR/XR chest 1V IMPRESSION: Unremarkable examination.
--- NOTE | ~2021-06-23 | XR_ITS ---
EXAMINATION: XR forearm LT 2V, XR elbow LT min 3V, XR humerus LT CLINICAL INFORMATION: Fall COMPARISON: None. TECHNIQUE: 3 views of the left elbow. 2 views of the left humerus. 2 views left forearm. FINDINGS: The radius and ulna are intact. There is 5 mm negative ulnar variance. No fracture or dislocation seen at the elbow joint. No elbow joint effusion. The humerus is intact. No gross evidence of dislocation at the left shoulder joint. XR/XR forearm LT 2V IMPRESSION: No acute osseous abnormality of the left humerus, elbow, or forearm.
--- NOTE | ~2021-06-23 | XR_ITS ---
EXAMINATION: XR forearm LT 2V, XR elbow LT min 3V, XR humerus LT CLINICAL INFORMATION: Fall COMPARISON: None. TECHNIQUE: 3 views of the left elbow. 2 views of the left humerus. 2 views left forearm. FINDINGS: The radius and ulna are intact. There is 5 mm negative ulnar variance. No fracture or dislocation seen at the elbow joint. No elbow joint effusion. The humerus is intact. No gross evidence of dislocation at the left shoulder joint. XR/XR humerus LT IMPRESSION: No acute osseous abnormality of the left humerus, elbow, or forearm.
--- NOTE | ~2021-06-23 | XR_ITS ---
EXAMINATION: XR forearm LT 2V, XR elbow LT min 3V, XR humerus LT CLINICAL INFORMATION: Fall COMPARISON: None. TECHNIQUE: 3 views of the left elbow. 2 views of the left humerus. 2 views left forearm. FINDINGS: The radius and ulna are intact. There is 5 mm negative ulnar variance. No fracture or dislocation seen at the elbow joint. No elbow joint effusion. The humerus is intact. No gross evidence of dislocation at the left shoulder joint. XR/XR elbow LT min 3V IMPRESSION: No acute osseous abnormality of the left humerus, elbow, or forearm.
--- NOTE | ~2021-06-23 | CT_ITS ---
EXAMINATION: CT SCAN OF THE HEAD WITHOUT CONTRAST CT ANGIOGRAM OF THE NECK CLINICAL INFORMATION: Loss of consciousness with neck pain and headache. COMPARISON: There are no prior studies available for comparison. TECHNIQUE: A noncontrast axial CT scan of the head was obtained. Coronal and sagittal reformatted images were generated at the technologist workstation. Test bolus series followed by intravenous administration 70 mL of Omnipaque 350. Helical imaging was performed in the axial plane from the mediastinum to the skull vertex. The degree of stenosis is based off NASCET criteria. The data was processed at the ep technologist workstation for generation of MIP images. Three-dimensional volume rendered reformatted images were also generated at an offline 3-D workstation. This CT examination was performed using dose optimization techniques as appropriate, variously including the following: *Automated exposure control *Adjustment of mA and/or kV according to patient size (this includes techniques or standardized protocols for targeted exams where dose is matched to indication/reason for exam; i.e. extremities or head) *Use of iterative reconstruction technique DLP: 571.51 mGy-cm. FINDINGS: CT Head: There is no evidence of acute intracranial hemorrhage or territorial infarction. No abnormal mass-effect or midline shift is seen. He to white matter differentiation is well preserved. No extra-axial fluid collections are identified. There is no abnormal enhancement. The ventricles are normal in size. There is no abnormal attenuation within the brain parenchyma. There are no acute osseous findings. There is mild hyperostosis frontalis interna. The soft tissues are unremarkable. The mastoid air cells and visualized portions of the paranasal sinuses are well-aerated; the frontal sinuses are hypoplastic. CTA Neck: Imaging of the vessels at the level of sternoclavicular joints is degraded by beam hardening artifact from contrast in the venous structures. There is a classic configuration of the arch of the aorta. The great vessels of the neck are widely patent. The subclavian arteries appear normal bilaterally. The common carotid arteries have normal caliber. The carotid bifurcations bilaterally appear normal. The internal carotid arteries in the neck bilaterally have uniform and normal caliber. The origins of both vertebral arteries are well seen and appear normal. Both vertebral arteries are widely patent and demonstrate good opacification throughout their cervical course. The left vertebral artery is slightly dominant. Nonvascular: The visualized lung apices are well-aerated. There are surgical clips in the region of the left lobe of the thyroid gland, consistent with left thyroid lobectomy. There is no cervical lymphadenopathy. There is thickening of the subcutaneous fat with increased attenuation in the left supraclavicular region, without discrete fluid collection or mass. There are mild facet arthropathic changes in the cervical spine. CTA Head: The visualized intracranial internal carotid arteries appear normal. The middle and anterior cerebral arteries are patent bilaterally. The vertebral arteries are patent. 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 The posterior cerebral arteries appear normal. CT/CT head/brain wo con IMPRESSION: CT head and neck: 1. There are no acute bleeds or infarcts. 2. No intracranial masses are demonstrated. 3. There are sequelae of the left thyroid lobectomy. 4. There is increased attenuation and soft tissue fullness in the left supraclavicular soft tissues without discrete fluid collection. This may be consistent with sequelae of trauma or possibly evolving cellulitis. Correlate clinically. CTA neck: 1. The carotid and vertebral arteries in the neck appear normal without evidence of flow-limiting stenosis. There is no evidence of dissection. 2. The visualized intracranial structures demonstrate no evidence of focal stenosis, aneurysm or vascular malformation.
--- NOTE | ~2021-06-23 | XR_ITS ---
EXAMINATION: XR SOFT TISSUE NECK CLINICAL INDICATION: Fall. COMPARISON: None TECHNIQUE: 2 views of the soft tissue neck were obtained. FINDINGS: Straightening of the normal cervical lordosis with otherwise anatomic alignment of the anterior and posterior elements. The atlantooccipital and atlantoaxial articulations appear maintained. No evidence of acute compression deformities. Mild cervical spondylosis with disc space narrowing and subcortical endplate sclerosis. No prevertebral soft tissue thickening. Multiple surgical clips overlie the deep soft tissues of the left neck. Visualized clavicles, ribs and lung apices are within normal limits. XR/XR soft tissue neck IMPRESSION: No acute cervical fractures or malalignment. Mild cervical spondylosis. Multiple surgical clips, correlate with prior surgical history.
[2021-06-23 16:59] VITALS: BP 147/78; PULSE 88; RESP 16; TEMP 36.5; O2SAT 99; BMI 37.9
--- NOTE | 2021-06-23 17:33 | ED_ITS ---
HPI - Fall General Chief Complaint: Fall Stated Complaint: fell and hurt neck and back Time Seen by Provider: 06/23/21 17:33 Source: patient Mode of arrival: ambulatory Limitations: no limitations History of Present Illness HPI Narrative: 40 yo female past medical hitory significant for asthma, migranes and fibromyalgia w/ recent left shoulder surgery 3 days ago at [facility] presents to the ED stating she fell backwards 2 days ago hitting her neck, left shoulder, , elbow and lower back. She now complains of pain in the previously listed areas. Patient states that she fainted 3 days ago, falling backwards straight on her back, She tells me that she felt dizzy prior to fainting. She states today she isnt dizzy. Since then she has been experiencing pain, worse with movement better at rest. Patient is also noted that the left side of her neck has been swelling, this is the site where they did a nerve block on her 3 days ago. Patient denies chest pain, shortness of breath, fevers, chills, nausea, vomiting, changes in vision, headache. Patient is not on blood thinners. Patient was told to go to [facility]'s ED earlier today to be evaluated however, the wait was to long so she decided to leave after waiting 6 hours. MD complaint: fall Onset (ago): day(s) (2) Fall from: standing Fall witnessed: no Place fall occurred: home Loss of consciousness: yes Prolonged down time: no Symptoms prior to fall: dizziness Context: other ( Recent arthroscopic shoulder decompression.) Location of injury: neck and other (left shoulder, elbow, lowerback. ) Related Data Previous Rx's Medication Instructions Recorded benzonatate 100 mg capsule 100 mg PO TID PRN #20 cap 07/28/20 (Tesangie Gomez) loratadine 10 mg tablet (Claritin) 10 mg PO DAILY #10 tab 07/28/20 prednisone 20 mg tablet 40 mg PO DAILY #10 tab 07/28/20 azithromycin 250 mg tablet See Rx Instructions .ROUTE 08/01/20 .COMPLEX #6 tab Allergies Allergy/AdvReac Type Severity Reaction Status Date / Time benralizumab [From FASENRA] Allergy Unknown AIRWAY Verified 06/23/21 17:04 DISTRESS dog dander [DOGS] Allergy Unknown ASTHMA Verified 06/23/21 17:04 dupilumab [From DUPIXTHREAT STREAM] Allergy Unknown SKIN Verified 06/23/21 17:04 RASH/INFECTION pollen extracts [POLLEN] Allergy Unknown RUNNY NOSE Verified 06/23/21 17:04 penicillin Allergy Unknown Rash Uncoded 06/23/21 17:04 Review of Systems Review of Systems: Constitutional : No Weight loss, No Fever, No Chills, No Fatigue, No Malaise ENT/Mouth : No sore throat, No Rhinorrhea Eyes: No Eye Pain, No Swelling, No Redness Cardiovascular : No Chest Pain, No SOB, No Dyspnea on Exertion, No Orthopnea, No Edema, No Palpitations Respiratory : No Cough, No Sputum, No Wheezing Gastrointestinal : No Nausea, No Vomiting, No Diarrhea, No Constipation, No abdominal Pain, No Hematochezia, No Melena Genitourinary : No Dysuria, No Urinary Frequency, No Hematuria, Musculoskeletal : + joint pain, No Myalgias, + Joint Swelling Skin : No Skin Lesions, No rash Neuro : No Weakness, No Numbness, + Dizziness, No Headache All other systems reviewed and are negative [facility] Past Medical History Attestation statement: The following information was validated with the patient. Source: old records reviewed and nursing notes reviewed Medical History Asthma Fibromyalgia Migraines Social History Social History Advance Directives: No Advance Directives Information Provided: No Patient : No Physical Exam Vital Signs: Vital Signs: Last Vital Signs Temp 97.7 F 06/23/21 16:59 Pulse 88 06/23/21 16:59 Resp 16 06/23/21 16:59 BP 147/78 H 06/23/21 16:59 Pulse Ox 99 06/23/21 16:59 Body Mass Index 37.9 Appearance: Alert.? Oriented X3.? No acute distress.? Head: Normocephalic, atraumatic, no step-offs or deformities Eyes: Pupils equal, round and reactive to light.? ENT: Pharynx normal.? Neck: + swelling to left lateral aspect of neck.? Neck supple.?No thrill or bruit noted CVS: Normal heart rate and rhythm.? Pulses normal.? Respiratory: No respiratory distress.? Breath sounds normal.? Abdomen: Soft and nontender.? Skin: Skin warm and dry.? Normal skin color.? Normal skin turgor.?Surgical site appears clean, dry and intact. No erythema or calor. Extremities: No lower extremity edema.? No calf ttp. 5/5 strength to bilateral upper and lower extremities. Bilateral upper extremities 2+ pulses equal bilateral. Capillary refill less than 2 seconds. Back: No midline tenderness, no C-spine tenderness, full range of motion, no CVA tenderness bilaterally Neuro: Oriented X 3.? No motor deficit.? No sensory deficit. Course Reevaluation(s) Reevaluation #1: X-ray of left elbow, humerus, soft tissue neck, forearm negative for fractures/dislocations. Time: 18:20 Reevaluation #2: Sign out will be given to Dr. Blanca. Pending CT head, CTA neck, Labs and CXR. Tessa a D/C home after ruling out ICH/vascular injury/ACS. MDM - Fall MDM Narrative Medical decision making narrative: 5 40 yo female pmhx significant for asthma, migraines and fibromyalgia w/ recent left shoulder arthroscopic decompression surgery 3 days ago at [facility] presents to the ED w/ neck, shoulder, , elbow and lower back pain s/p a syncopal episode that was preceded with dizziness two days ago. Patient states she didn't hit her head when she fell. However, she states she somehow hit her neck. Did not have a prolonged down time. Not on blood thinners. Upon physical examination patient appears well, no acute distress. Vital signs are stable, noted to be slightly hypertensive. Left arm in a sling. Site surgical incision clean, dry, intact, no overlying calor or erythema or any signs of infection. Sensation and motor intact in bilateral upper and lower extremities. 2+ pulses equal bilateral. 5/5 strength upper and lower extremities. Capillary refil <2 seconds. 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 EOMI. Head normocephalic, atraumatic no step offs or deformities. Neck with normal ROM. Swelling noted to the left later aspect of neck.No thrill or bruit. Steady gait no ataxia. No midline tenderness. No C-spine tenderness. Back ROM full. Plan at this time is to obtain an EKG, orthostatics vital signs, CBC, CMP, magnesium, troponin, urine test, COVID, chest x-ray, x-ray of the left elbow, forearm, humerus, soft tissues of neck, chest. CT angiogram of the neck and CT of the head and brain will also be ordered at this time. Will rule out vascular injury/ ACS/ orthostatic hypotension/ electrolyte abnormalities/ ICH. Although this patient is postsurgical she had a very minimally invasive procedure done arthroscopically. Perc score of 1 d/t recent surgery, low probability that this is a PE. Did not order a D-dimer, as it will likely be elevated due to postinflammatory changes after the procedure. I do not believe that this is a pulmonary embolism, vital signs are all within normal limits, no tachycardia or tachypnea or hypoxia noted. Patient is not complaing of chest pain or shortness of breath. Medical Records Attestation: I reviewed the patient's medical records. Lab Data Attestation: I reviewed the patient's lab results. Result diagrams: 06/23/21 18:17 06/23/21 18:17 Labs: Lab Results 06/23/21 06/23/21 Range/Units 18:17 18:17 Sodium 139 (135-145) mmol/L Potassium 3.9 (3.3-5.1) mmol/L Chloride 105 (96-108) mmol/L Carbon Dioxide 26 (22-29) mmol/L Anion Gap 12 (12-20) BUN 9 (9-16) mg/dL Creatinine 0.69 (0.5-1.4) mg/dL Estim Creat Clear Calc 131.1 Estimated GFR > 60 Random Glucose 106 (60-115) mg/dL Calcium 8.8 (8.4-10.2) mg/dL Magnesium 2.0 (1.6-2.6) mg/dL Total Bilirubin 0.3 (0.0-1.0) mg/dL AST 17 (5-31) U/L ALT 19 (0-31) U/L Alkaline Phosphatase 50 (39-117) U/L Total Protein 6.9 (6.5-8.0) g/dL Albumin 3.8 (3.5-5.0) g/dL COVID-19 (BARBI) Negative (Negative) COVID-19 Clin Com See Note Imaging Data X-ray soft tissue neck: Attestation: I personally reviewed and interpreted this imaging study as follows: Radiologist's impression: FINDINGS: Straightening of the normal cervical lordosis with otherwise anatomic alignment of the anterior and posterior elements. The atlantooccipital and atlantoaxial articulations appear maintained. No evidence of acute compression deformities. Mild cervical spondylosis with disc space narrowing and subcortical endplate sclerosis. No prevertebral soft tissue thickening. Multiple surgical clips overlie the deep soft tissues of the left neck. Visualized clavicles, ribs and lung apices are within normal limits. XR/XR soft tissue neck IMPRESSION: No acute cervical fractures or malalignment. Mild cervical spondylosis. Multiple surgical clips, correlate with prior surgical history. x-ray left forearm, left elbow left humerus: Attestation: I personally reviewed and interpreted this imaging study as follows: Radiologist's impression: FINDINGS: The radius and ulna are intact. There is 5 mm negative ulnar variance. No fracture or dislocation seen at the elbow joint. No elbow joint effusion. The humerus is intact. No gross evidence of dislocation at the left shoulder joint. XR/XR humerus LT IMPRESSION: No acute osseous abnormality of the left humerus, elbow, or forearm.? ECG Data Attestation: I personally reviewed and interpreted this ECG as follows: ECG interpretation date: 06/23/21 ECG interpretation time: 18:25 Prior ECG tracings: available for review Interpretation: ventricular rate of 86, DC normal, QRS normal, QT / QTC normal. EKG shows normal sinus rhythm with sinus arrhythmia. No ST elevations or inversions. No acute ischemia. No acute changes when compared to EKG from 08/29/2020 Critical Care Time Critical Care Time Critical Care Time: No Discharge Plan Discharge Clinical Impression: Syncope, Left shoulder pain, Elbow pain, left, Neck pain Patient Disposition: Still a Patient Instructions: Syncope (ED) Additional Instructions: Take your medications as prescribed. Follow-up with your primary care provider this week. Follow up with your surgeon Return to the emergency department with new or worsening symptoms. In case of emergency call 911 Prescriptions: No Action benzonatate [Tessalon Perles] 100 mg capsule 100 mg PO TID PRN (Reason: coughing) Qty: 20 RF: 0 loratadine [Claritin] 10 mg tablet 10 mg PO DAILY Qty: 10 RF: 0 prednisone 20 mg tablet 40 mg PO DAILY Qty: 10 RF: 0 azithromycin 250 mg tablet See Rx Instructions .ROUTE .COMPLEX Qty: 6 RF: 0 Referrals: Claude Yi MD [Primary Care Provider] - 2 days Stand Alone Forms: Work/School Release
--- NOTE | 2021-06-23 18:05 | ECG_ITS ---
Test Reason : syncope Blood Pressure : / mmHG Vent. Rate : 086 BPM Atrial Rate : 086 BPM P-R Int : 142 ms QRS Dur : 084 ms QT Int : 382 ms P-R-T Axes : 042 021 -03 degrees QTc Int : 457 ms Normal sinus rhythm with sinus arrhythmia Nonspecific T wave abnormality Inferior leads Abnormal ECG When compared with ECG of 29-AUG-2020 20:28, No significant change was found Referred By: Haider Andino Electronically Signed By:MABLE PATRICK MD
[2021-06-23 18:25] LABS: MANUAL DIFF FLAG NO
[2021-06-23 18:41] LABS: Alanine Aminotransferase 19 U/L (0-31); Albumin Level 3.8 g/dL (3.5-5.0); Alkaline Phosphatase 50 U/L (39-117); Anion Gap 12 (12-20); Aspartate Amino Transferase 17 U/L (5-31); Bilirubin Total 0.3 mg/dL (0.0-1.0); Blood Urea Nitrogen 9 mg/dL (9-16); COVID-19 Test Negative (Negative); Calcium 8.8 mg/dL (8.4-10.2); Carbon Dioxide 26 mmol/L (22-29); Chloride 105 mmol/L (96-108); Creatinine Clr Calc Pharmacy 131.1; Estimated Glomerular Filt Rate > 60; Glucose Random 106 mg/dL (60-115); Potassium 3.9 mmol/L (3.3-5.1); Sodium 139 mmol/L (135-145); Total Protein 6.9 g/dL (6.5-8.0)
[2021-06-23 18:46] LABS: Troponin-I High Sensitivity < 3.5 ng/L (<3.5-17.0)
[2021-06-23 18:50] LABS: Basophils Percent Auto 0.3 % (0-2); Eosinophils Absolute Auto 0.5 X10*3/uL (0.0-0.4); Eosinophils Percent Auto 5.6 % (0-4); Hematocrit 38.1 % (37.0-47.0); Hemoglobin 12.6 g/dl (12.0-16.0); Imm Gran Abs Auto 0.03 X10*3/uL (0.00-0.03); Imm Gran Pct Auto 0.3 % (0.0-0.4); Lymphocytes Absolute Auto 1.9 X10*3/uL (1.2-4.9); Lymphocytes Percent Auto 20.2 % (20-40); Mean Corpuscular HGB Conc 33.1 g/dl (31.0-35.0); Mean Corpuscular Hemoglobin 29.9 pg (27.0-33.0); Mean Corpuscular Volume 90.3 fL (80.0-98.0); Mean Platelet Volume 10.7 fL (9.4-12.3); Monocytes Absolute Auto 0.8 X10*3/uL (0.1-1.2); Monocytes Percent Auto 8.8 % (2-11); Neutrophils Percent Auto 64.8 % (45-73); Platelet Count 267 X10*3/uL (160-400); Red Blood Count 4.22 X10*6/uL (4.20-5.50); White Blood Count 9.2 X10*3/uL (4.8-10.8)
[2021-06-23 19:09] VITALS: BP 131/76; BP 145/76; PULSE 78; PULSE 80
[2021-06-23 19:11] VITALS: BP 142/84; PULSE 91
[2021-06-23 19:57] LABS: UPreg QC Valid YES; Urine Pregnancy NEGATIVE (NEGATIVE)
[2021-06-23] MEDS: iohexoL 350 MG/ML 100 ML INFUS..BTL IV (21:18)
[2021-06-23 21:20] VITALS: BP 130/74; PULSE 70; RESP 8; TEMP 36.9; O2SAT 100
[2021-06-23] MEDS: Morphine Sulfate 2 MG/ML CARTRIDGE IVPUSH (21:21)
== END 2021-06-23 22:45 | disposition home or self-care (01) ==
PROVIDERS: Physician Assistant; Emergency Provider Emergency Medicine; PCP Internal Medicine
DX: R55 Syncope and collapse (principal); M25.512 Pain in left shoulder; M25.522 Pain in left elbow; M54.2 Cervicalgia; I10 Essential (primary) hypertension; Z20.822 Contact with and (suspected) exposure to COVID-19; Z91.81 History of falling; Z98.890 Other specified postprocedural states
CPT/HCPCS: 36415; 70360; 70450; 70498; 71045; 73060; 73080; 73090; 80053; 81025; 83735; 84484; 85025; 87635; 93005; 96374; 99284; J2270; Q9967

== ENCOUNTER 2022-04-30 18:44 | Emergency (ER) | payer MEDICARE, OTHER, SELFPAY ==
--- NOTE | ~2022-04-30 | XR_ITS ---
EXAMINATION: XR CHEST, FRONTAL CLINICAL INFORMATION: Chest pain. COMPARISON: Chest radiograph dated 06/23/2021. TECHNIQUE: AP view of the chest was obtained. FINDINGS: The heart, great vessels, pulmonary vasculature and mediastinum are normal. The lungs show no focal infiltrate, effusion or pneumothorax. There is no acute osseous abnormality. XR/XR chest 1V IMPRESSION: No active cardiopulmonary disease.
--- NOTE | 2022-04-30 18:47 | ECG_ITS ---
Test Reason : CHEST PAIN Blood Pressure : / mmHG Vent. Rate : 074 BPM Atrial Rate : 074 BPM P-R Int : 168 ms QRS Dur : 094 ms QT Int : 416 ms P-R-T Axes : 053 002 001 degrees QTc Int : 461 ms Normal sinus rhythm Nonspecific T wave abnormality Prolonged QT Abnormal ECG When compared with ECG of 23-JUN-2021 18:25, Nonspecific T wave abnormality now evident in Anterior leads Referred By: Generic ED Physician Electronically Signed By:PETER TORRES
[2022-04-30 18:59] VITALS: BP 123/71; PULSE 78; RESP 18; TEMP 37.2; O2SAT 100; BMI 37.1
[2022-04-30 19:47] LABS: MANUAL DIFF FLAG NO
[2022-04-30 19:48] LABS: Basophils Percent Auto 0.5 % (0-2); Eosinophils Absolute Auto 0.4 X10*3/uL (0.0-0.4); Eosinophils Percent Auto 6.4 % (0-4); Hematocrit 38.7 % (37.0-47.0); Hemoglobin 12.8 g/dl (12.0-16.0); Imm Gran Abs Auto 0.01 X10*3/uL (0.00-0.03); Imm Gran Pct Auto 0.2 % (0.0-0.4); Lymphocytes Absolute Auto 1.9 X10*3/uL (1.2-4.9); Lymphocytes Percent Auto 31.4 % (20-40); Mean Corpuscular HGB Conc 33.1 g/dl (31.0-35.0); Mean Corpuscular Hemoglobin 29.6 pg (27.0-33.0); Mean Corpuscular Volume 89.4 fL (80.0-98.0); Mean Platelet Volume 11.1 fL (9.4-12.3); Monocytes Absolute Auto 0.6 X10*3/uL (0.1-1.2); Monocytes Percent Auto 9.4 % (2-11); Neutrophils Absolute Auto 3.2 x10*3/uL (2.0-8.3); Neutrophils Percent Auto 52.1 % (45-73); Platelet Count 246 X10*3/uL (160-400); Red Blood Count 4.33 X10*6/uL (4.20-5.50); Red Cell Distribution Width 12.7 % (11.0-16.0); White Blood Count 6.1 X10*3/uL (4.8-10.8)
[2022-04-30 20:06] LABS: Anion Gap 13 (12-20); Blood Urea Nitrogen 9 mg/dL (9-16); Carbon Dioxide 25 mmol/L (22-29); Chloride 106 mmol/L (96-108); Creatinine Clr Calc Pharmacy 122.9; Estimated Glomerular Filt Rate > 60; Glucose Random 96 mg/dL (60-115); Potassium 4.2 mmol/L (3.3-5.1); Sodium 140 mmol/L (135-145)
[2022-04-30 20:20] LABS: Troponin-I High Sensitivity < 3.5 ng/L (<3.5-17.0)
[2022-04-30 21:25] VITALS: BP 111/68; PULSE 63; RESP 18; TEMP 36.5; O2SAT 100
--- NOTE | 2022-04-30 21:26 | ED.CHESTPAIN ---
HPI - Chest Pain General Chief Complaint: Chest Pain Stated Complaint: hx of svt HR 150 chest pain Time Seen by Provider: 04/30/22 21:26 History of Present Illness HPI narrative: Patient history of paroxysmal AFib on metoprolol and flecainide used to have frequent episodes of palpitation but since she is taking flecainide she has occasional episodes of palpitation last episode was in January today around 08:00 patient had similar episode lasted for about 20 minutes felt little weak and dizzy got improved after that heart rate was at 01:50 range she checks from her watch. Patient went to work and came now for evaluation at this time patient denies any palpitation no chest pain and shortness of breath asymptomatic Related Data Previous Rx's Medication Instructions Recorded benzonatate 100 mg capsule 100 mg PO TID PRN coughing #20 caps 07/28/20 (Tessalon Perles) loratadine 10 mg tablet (Claritin) 10 mg PO DAILY allergies #10 tabs 07/28/20 prednisone 20 mg tablet 40 mg PO DAILY #10 tabs 07/28/20 azithromycin 250 mg tablet See Rx Instructions PO .COMPLEX #6 08/01/20 tabs Allergies Allergy/AdvReac Type Severity Reaction Status Date / Time benralizumab [From FASENRA] Allergy Unknown AIRWAY Verified 06/23/21 17:04 DISTRESS dog dander [DOGS] Allergy Unknown ASTHMA Verified 06/23/21 17:04 dupilumab [From DUPIXENT] Allergy Unknown SKIN Verified 06/23/21 17:04 RASH/INFECTION pollen extracts [POLLEN] Allergy Unknown RUNNY NOSE Verified 06/23/21 17:04 penicillin Allergy Unknown Rash Uncoded 06/23/21 17:04 Review of Systems Review of Systems: Yes all other systems are reviewed and are negative [facility] Past Medical History Medical History Asthma Fibromyalgia Migraines Social History Social History Alcohol intake: never Patient Tobacco Use Status: Never used Tobacco Advance Directives: No Patient : No Physical Exam Vital Signs: Vital Signs: Last Vital Signs Temp 97.7 F 04/30/22 21:25 Pulse 63 04/30/22 21:25 Resp 18 04/30/22 21:25 BP 111/68 04/30/22 21:25 Pulse Ox 100 04/30/22 21:25 O2 Del Method 04/30/22 21:25 BMI result Body Mass Index 37.1 Appearance: Alert. Oriented X3. No acute distress. Eyes: PERRLA, No Nystagmus ENT: Pharynx normal. Oral Mucosa moist Neck: Normal inspection. Neck supple. CVS: Normal heart rate and rhythm. Pulses normal. Respiratory: No respiratory distress. Equal air entry bilateral, no wheezing/rales/rhonchi Abdomen: Soft and nontender. Bowel sounds are present, no mass palpable, no CVA tenderness Skin: Skin warm and dry. Normal skin color. Normal skin turgor. Extremities: No lower extremity edema. No calf tenderness Neuro: Oriented X 3. No motor deficit. No sensory deficit.No cerebellar signs , cranial nerves II-XII intact MDM - Chest Pain MDM Narrative Medical decision making narrative: Patient history of paroxysmal AFib on flecainide and metoprolol had an episode of AFib earlier vital stable labs are stable will discharge patient home advised to follow up with intelligence officer Lab Data Attestation: I reviewed the patient's lab results. Result diagrams: 04/30/22 19:40 04/30/22 19:40 Labs: Lab Results 04/30/22 04/30/22 04/30/22 Range/Units 19:40 19:40 19:40 WBC 6.1 (4.8-10.8) X10*3/uL RBC 4.33 (4.20-5.50) X10*6/uL Hgb 12.8 (12.0-16.0) g/dl Hct 38.7 (37.0-47.0) % MCV 89.4 (80.0-98.0) fL MCH 29.6 (27.0-33.0) pg MCHC 33.1 (31.0-35.0) g/dl RDW 12.7 (11.0-16.0) % Plt Count 246 (160-400) X10*3/uL MPV 11.1 (9.4-12.3) fL Immature Gran % (Auto) 0.2 (0.0-0.4) % Neut % (Auto) 52.1 (45-73) % Lymph % (Auto) 31.4 (20-40) % [place] % (Auto) 9.4 (2-11) % Eos % (Auto) 6.4 H (0-4) % Baso % (Auto) 0.5 (0-2) % Lymph # (Auto) 1.9 (1.2-4.9) X10*3/uL [place] # (Auto) 0.6 (0.1-1.2) X10*3/uL Eos # (Auto) 0.4 (0.0-0.4) X10*3/uL Baso # (Auto) 0.0 (0.0-0.2) X10*3/uL Abs Immat Gran (auto) 0.01 (0.00-0.03) X10*3/uL Absolute Neuts (auto) 3.2 (2.0-8.3) x10*3/uL Absolute Nucleated RBC 0.000 (0.0-0.012) X10*3/uL Nucleated RBC % (auto) 0.0 (0.0-0.2) /100WBC Sodium 140 (135-145) mmol/L Potassium 4.2 (3.3-5.1) mmol/L Chloride 106 (96-108) mmol/L Carbon Dioxide 25 (22-29) mmol/L Anion Gap 13 (12-20) BUN 9 (9-16) mg/dL Creatinine 0.72 (0.5-1.4) mg/dL Estim Creat Clear Calc 122.9 Estimated GFR > 60 Random Glucose 96 (60-115) mg/dL Calcium 9.0 (8.4-10.2) mg/dL Troponin I High Sens < 3.5 (<3.5-17.0) ng/L ECG Data ECG #1: Attestation: I personally reviewed and interpreted this ECG as follows: Interpretation: Now in sinus rhythm heart rate 74 beats per minute QT interval [address]-T changes no acute ischemia Discharge Plan Discharge Clinical Impression: AF (paroxysmal atrial fibrillation) Patient Disposition: Home, Self-Care Instructions: A-fib (Atrial Fibrillation) (ED) Additional Instructions: Continue flecainide and metoprolol Take extra dose of metoprolol for palpitation episodes and let your intelligence officer know Report to the ER if prolong palpitation episodes Prescriptions: No Action benzonatate [Tessalon Perles] 100 mg capsule 100 mg PO TID PRN (Reason: coughing) Qty: 20 0RF loratadine [Claritin] 10 mg tablet 10 mg PO DAILY Qty: 10 0RF prednisone 20 mg tablet 40 mg PO DAILY Qty: 10 0RF azithromycin 250 mg tablet See Rx Instructions .ROUTE .COMPLEX Qty: 6 0RF Rx Instructions: take 500 mg today (day 1), then 250 mg for 4 days (days 2-5) Stand Alone Forms: Work/School Release Interventions: ED Discharge Assessment Last Done: 04/30/22 21:48 Discharge Date/Time: 04/30/22 21:50
[2022-04-30 21:40] VITALS: PULSE 64
== END 2022-04-30 21:50 | disposition home or self-care (01) ==
PROVIDERS: Emergency Provider Internal Medicine
DX: R07.9 Chest pain, unspecified (principal); I48.0 Paroxysmal atrial fibrillation; I47.1 Supraventricular tachycardia
CPT/HCPCS: 36415; 71045; 80048; 84484; 85025; 93005; 99283; 99285

== ENCOUNTER 2022-11-29 10:39 | Emergency (ER) | payer MEDICARE, OTHER, SELFPAY ==
--- NOTE | ~2022-11-29 | XR_ITS ---
EXAMINATION: XR SHOULDER, RIGHT CLINICAL INFORMATION: Right shoulder pain and limited range of motion COMPARISON: Chest radiograph from 06/23/2021 TECHNIQUE: Three views of the right shoulder. FINDINGS: The humeral head is well-positioned over the intact glenoid. Glenohumeral joint space is maintained. No acute fracture or malalignment. There is an enthesophyte of the greater tuberosity of the humerus. The chronic widening of the acromioclavicular joint space requires clinical correlation. This could be sequela of remote Leidy procedure. The subacromial space is normal. No calcium deposition within rotator cuff tendons. The visualized right upper lung is normal. Surgical clips are present in the left lower neck. XR/XR shoulder RT min 2V IMPRESSION: * No acute fracture or malalignment at the right shoulder. * No evidence of calcific tendinopathy. * The chronic widening of the acromioclavicular joint space requires clinical correlation. Query if there is any remote history of Leidy procedure.
[2022-11-29 10:41] VITALS: BP 143/81; PULSE 80; RESP 19; TEMP 36.6; O2SAT 100; BMI 39.5
--- NOTE | 2022-11-29 10:54 | ED_ITS ---
HPI - Extremity Problem General Chief complaint: Extremity Injury, Upper Stated complaint: neck pain Time Seen by Provider: 11/29/22 10:48 Source: patient, RN notes reviewed and old records reviewed Mode of arrival: ambulatory History of Present Illness HPI Narrative: 42-year-old female with a past medical history of asthma, fibromyalgia, migraines, presenting to the ED complaining of right-sided neck pain radiating to right shoulder/down RUE x 3 weeks. Denies known injury/trauma or fall. Reports associated paresthesias. Denies numbness, weakness, CP/SOB, incontinence/retention MD Complaint: extremity pain Onset (ago): week(s) Related Data Previous Rx's Medication Instructions Recorded benzonatate 100 mg capsule 100 mg PO TID PRN coughing #20 caps 07/28/20 (Tessalon Perles) loratadine 10 mg tablet (Claritin) 10 mg PO DAILY allergies #10 tabs 07/28/20 prednisone 20 mg tablet 40 mg PO DAILY #10 tabs 07/28/20 azithromycin 250 mg tablet See Rx Instructions PO .COMPLEX #6 08/01/20 tabs acetaminophen 500 mg tablet 500 mg PO Q6H PRN fever or pain 11/29/22 (Tylenol Extra Strength) #14 tabs cyclobenzaprine 5 mg tablet 5 mg PO Q8H PRN pain (scale score 11/29/22 7-10) 5 days #14 tabs lidocaine 5 % topical patch 1 patch topical DAILY PRN pain #30 11/29/22 (Lidoderm) ea naproxen 500 mg tablet 500 mg PO BID PRN pain 10 days #20 11/29/22 tabs Allergies Allergy/AdvReac Type Severity Reaction Status Date / Time benralizumab [From FASENRA] Allergy Unknown AIRWAY Verified 11/29/22 10:41 DISTRESS dog dander [DOGS] Allergy Unknown ASTHMA Verified 11/29/22 10:41 dupilumab [From DUPIXENT] Allergy Unknown SKIN Verified 11/29/22 10:41 RASH/INFECTION pollen extracts [POLLEN] Allergy Unknown RUNNY NOSE Verified 11/29/22 10:41 penicillin Allergy Unknown Rash Uncoded 11/29/22 10:41 Review of Systems Review of Systems: Constitutional: No Fever, No Chills ENT/Mouth: No Ear Pain, No Nasal Congestion, No Sinus Pain, No Hoarseness, No sore throat, No Rhinorrhea, No Swallowing Difficulty Cardiovascular: No Chest Pain, No SOB Respiratory: No Cough, No Sputum, No Wheezing Gastrointestinal: No Nausea, No Vomiting, No Diarrhea, No Constipation, No Abd ominal pain Genitourinary: No Dysuria, No Urinary Frequency, No Hematuria, No Urinary Incontinence/retention, No Urgency, No Flank Pain Musculoskeletal: +joint pain, No Myalgias, No Joint Swelling Skin: No Skin Lesions, No rash Neuro: No Weakness, No Numbness, + Paresthesias Yes all other systems are reviewed and are negative Constitutional: Constitutional: Reports as per [facility] Past Medical History Attestation statement: The following information was validated with the patient. Medical History Asthma Fibromyalgia Migraines Social History Social History Alcohol intake: never Patient Tobacco Use Status: Never used Tobacco Advance Directives: No Physical Exam Vital Signs: Vital Signs: Last Vital Signs Temp 98 F 11/29/22 10:41 Pulse 80 11/29/22 10:41 Resp 19 11/29/22 10:41 BP 143/81 H 11/29/22 10:41 Pulse Ox 100 11/29/22 10:41 O2 Del Method Room Air 11/29/22 10:41 BMI result Body Mass Index 39.5 Const: General: cooperative, healthy appearing and no acute distress Orientation/consciousness: patient oriented x3 Limitations: no limitations HEENT: Head: Yes normal to inspection and Yes atraumatic Ears: hearing grossly normal bilaterally General nose exam: Normal external nose present Face and sinus: Yes normal facial exam Eyes: General: appearance normal, both eyes and all related structures EOM: EOMs intact bilaterally Neck: Other: No midline cervical spinous tenderness. Right-sided cervical paraspinal/trapezius muscle tenderness to palpation Neck: Yes normal visual inspection and Yes no meningeal signs Resp: Effort & Inspection: normal respiratory effort and no respiratory distress Cardio: Rate: regular rate Heart sounds: S1 normal heart sound present and S2 normal heart sound present Peripheral pulses: Peripheral pulses 2+ throughout Back/Spine/Pelvis: Other: No midline cervical/thoracic/lumbar spinous tenderness/step-off or deformity Skin: Rashes: no rashes Wounds: no wounds Neuro: General: patient oriented x3, tone normal, moves all extremities, no meningeal signs and no focal motor deficits Gait exam (Neuro): Normal gait present Extrem: Other: Right shoulder with mild tenderness to palpation. No erythema/crepitus, no warmth or deformity. ROM intact with pain. NV intact distally General: Yes normal to inspection Course Course Course Narrative: XR shoulder RT min 2V IMPRESSION: *? No acute fracture or malalignment at the right shoulder. *? No evidence of calcific tendinopathy. *? The chronic widening of the acromioclavicular joint space requires clinical correlation. Query if there is any remote history of Leidy procedure. > patient with history of shoulder surgery. Reports symptomatic improvement after medications given in the ED Results discussed with patient including worrisome signs and symptoms and strict return precautions, and when to return to the emergency department. They verbalized understanding and feel safe for discharge at this time. Medications Administered Discontinued Medications Generic Name Dose Route Start Last Admin Trade Name Freq PRN Reason Stop Dose Admin Ketorolac Tromethamine 30 mg 11/29/22 10:59 11/29/22 11:14 Ketorolac Tromethamine 30 Mg/Ml Vial IM 11/29/22 11:00 30 mg ONCE ONE Administration Lidocaine 1 patch 11/29/22 10:59 11/29/22 11:13 Lidocaine 4 % Patch Adh..Patch TRANSDERMA 11/29/22 11:00 1 patch ONCE ONE Administration Protocol Medical Decision Making Medical Decision Making [facility] Narrative: 42-year-old female with a past medical history of asthma, fibromyalgia, migraines, presenting to the ED complaining of right-sided neck pain radiating to right shoulder/down RUE x 3 weeks. On exam vital signs stable, NAD, nontoxic appearing, right-sided cervical paraspinal/trapezius and right shoulder tenderness noted. No midline spinous tenderness or red flag symptoms. Concern for MSK pain/strain vs radiculopathy. Low suspicion for ACS, fracture, cervical dissection Plan: IM Toradol, shoulder x-ray Please refer to course for remaining clinical decision making, interpretation of labs/imaging results, and discussions with consultants and/or family members. Differential Diagnosis Differential Diagnoses: The differential diagnosis associated with the presentation includes As above Admission/Observation Consideration of admission/observation: Escalation of care including admission/observation considered Lab Data [facility] Lab Attestation statement: I reviewed the patient's lab results. Radiology Impression Discussion of test interpretation with radiology: I have reviewed the radiologist's reading. External Record Review External record reviewed: Inpatient record, Office record, Outpatient record, Prior outpatient labs, Prior outpatient radiology, Primary care record and Outside ED record Discharge Plan Discharge Clinical Impression: Neck pain, Arthralgia Patient Disposition: Home, Self-Care Instructions: Arthralgia (ED), Neck Pain (ED) Additional Instructions: Your x-rays are unremarkable Your pain is likely musculoskeletal Flexeril is a muscle relaxer, take at night as it makes you drowsy, do not drive, drink alcohol, or operate machinery while taking it Naproxen as an anti-inflammatory / pain medication, take with food Lidoderm patches are numbing patches, apply to painful area In addition take Tylenol at home If symptoms persist or worsen, pain becomes unbearable, you developed urinary retention or incontinence, or weakness return to the ED Prescriptions: New lidocaine [Lidoderm] 5 % adhesive patch,medicated 1 patch topical DAILY MDD remove after 12 hours PRN (Reason: pain) Qty: 30 0RF Rx Instructions: leave on most painful area for up to 12 hrs cyclobenzaprine 5 mg tablet 5 mg PO Q8H PRN (Reason: pain (scale score 7-10)) 5 Days Qty: 14 0RF acetaminophen [Tylenol Extra Strength] 500 mg tablet 500 mg PO Q6H PRN (Reason: fever or pain) Qty: 14 0RF naproxen 500 mg tablet 500 mg PO BID PRN (Reason: pain) 10 Days Qty: 20 0RF No Action benzonatate [Tessalon Perles] 100 mg capsule 100 mg PO TID PRN (Reason: coughing) Qty: 20 0RF loratadine [Claritin] 10 mg tablet 10 mg PO DAILY Qty: 10 0RF prednisone 20 mg tablet 40 mg PO DAILY Qty: 10 0RF azithromycin 250 mg tablet See Rx Instructions .ROUTE .COMPLEX Qty: 6 0RF Rx Instructions: take 500 mg today (day 1), then 250 mg for 4 days (days 2-5) Referrals: [facility] [Provider Group] Nasrin Singh MD [Primary Care Provider] - 5 days Stand Alone Forms: Work/School Release
[2022-11-29] MEDS: Lidocaine 4 % Patch ADH..PATCH 1 PATCH TRANSDERMA (11:13)
[2022-11-29] MEDS: Ketorolac Tromethamine 30 MG/ML VIAL IM (11:14)
--- OUTSIDE RECORDS SUMMARY | 2022-11-29 14:34 | XMS_ITS | Continuity of Care Document ---
Author Name Unknown Organization [facility] Antonia Catia nCAPPTUREs [facility] Address [address] [place] [address], [address] [place] [address]- Care Team Providers Care [employer] Consultant Name Role Phone Ivonne Wilkerson DO Primary Care Refugio cordero [id number] Date(s): 08/19/20 - 09/18/20 [facility] Antoniabrooklynn FinkCAPPTUREs [facility] [address] [place] [address], [address] [place] [address]- Attending Physician: Admtr, Ar8 Admitting Physician: Admtr, Ar8 Referring Physician: Admtr, Ar8 Allergies, Adverse Reactions, Alerts Substance Reaction Severity Status azithromycin Active penicillins hives Active Dupixent Active Fasenra Active Pollen asthma, itchy eyes Active Medications amitriptyline 150 mg oral tablet 1 tablet = 150 mg, By Mouth, Daily at bedtime, 0 Refills, Maintenance, 10/02/16 15:22:53 Start Date: 10/02/16 Status: Ordered barium sulfate 2.1% oral suspension See Instructions, Drink 1st bottle 6 hours before exam. Drink 2nd bottle 90 minutes before exam., #2 bottle, 0 Refills, Soft Stop, 10/04/16 11:07:40, Drink 1st bottle 6 hours before exam. Drink 2nd bottle 90 minutes before exam. Start Date: 10/04/16 Status: Ordered Colace sodium 100 mg oral capsule 100 mg, 1, capsule, By Mouth, 2 times a day, PRN, # 14 capsule, Refills 0, Tot. Refills 0, Maintenance, for constipation, 01/28/17 14:29:59, Print Requisition Start Date: 01/28/17 Stop Date: 02/04/17 Status: Ordered Depakote ER = 500 mg, By Mouth, Daily, 0 Refills, Maintenance, 10/02/16 15:22:33 Start Date: 10/02/16 Status: Ordered duloxetine 60 mg oral enteric coated capsule 1 capsule = 60 mg, By Mouth, Daily, 0 Refills, Maintenance, 10/02/16 15:22:11 Start Date: 10/02/16 Status: Ordered ferrous sulfate 325 mg oral enteric coated tablet 325 mg, 1, tablet, By Mouth, 3 times a day, start 1 per day and increase as tolerated. Taked with Vit C to increase absorption, # 90 tablet, Refills 2, Tot. Refills 2, Maintenance, 02/18/17 10:50:24,Route to Pharmacy Electronically, [id number]... Start Date: 02/18/17 Status: Ordered Gabapentin = 900 mg, By Mouth, 2 times a day, 0 Refills, Maintenance, 10/02/16 15:22:20 Start Date: 10/02/16 Status: Ordered hydrochlorothiazide 25 mg oral tablet 25 mg, 1, tablet, By Mouth, Daily, Refills 0, Maintenance, 10/02/16 15:24:48 Start Date: 10/02/16 Status: Ordered levothyroxine 0.025 mg oral tablet 1 tablet = 25 mcg, By Mouth, Daily, # 30 tablet, 0 Refills, Maintenance, 10/02/16 15:23:29, Tablet Start Date: 10/02/16 Status: Ordered Lipitor 20 mg oral tablet 1 tablet = 20 mg, By Mouth, Daily, 0 Refills, Maintenance Start Date: 10/02/16 Status: Ordered omeprazole 40 mg oral enteric coated capsule 1 capsule = 40 mg, By Mouth, Daily, 0 Refills, Maintenance, 10/02/16 15:24:22 Start Date: 10/02/16 Status: Ordered ondansetron 4 mg oral tablet, disintegrating 1 tablet = 4 mg, By Mouth, 2 times a day, # 6 tablet, 0 Refills, Maintenance Start Date: 06/24/13 Status: Ordered prazosin 1 mg oral capsule 1 mg, 1, capsule, By Mouth, Daily at bedtime, Refills 0, Maintenance, 10/02/16 15:24:02 Start Date: 10/02/16 Status: Ordered Singulair 10 mg oral tablet 10 mg, 1, tablet, By Mouth, Daily, Refills 0, Maintenance, 10/02/16 15:23:09 Start Date: 10/02/16 Status: Ordered Vicodin 500 mg-5 mg oral tablet 1 tablet, By Mouth, Every 4 to 6 hours, PRN Pain, # 18 tablet, 0 Refills, Maintenance Start Date: 06/24/13 Stop Date: 06/27/13 Status: Ordered Vitamin B12 0 Refills, Maintenance, 10/02/16 15:24:09 Start Date: 10/02/16 Status: Ordered Vitamin D3 By Mouth, 0 Refills, Maintenance, 10/02/16 15:24:15 Start Date: 10/02/16 Status: Ordered Problem List Condition Effective Dates Status Health Status Inform ant Drug reaction(Confirmed) Active Allergic conjunctivitis of b oth eyes(Confirmed) Active Anxiety disorder(Confirmed) Active Asthma(Confirmed) Active Binge eating disorder, mild, in partial remission(Confirmed) Active Bipolar disorder(Confirmed) Active Epistaxis(Confirmed) Active LGSIL of cervix of undetermi misty significance(Confirmed) Active Depression(Confirmed) Active Dyslipidemia(Confirmed) Active Inclusion cyst(Confirmed) Active Family history of uterine cancer(Confirmed) Active Fibromyalgia(Confirmed) Active Fibromyalgia(Confirmed) Active GERD (gastroesophageal reflu x disease)(Confirmed) Active Helicobacter positive gastritis(Confirmed) Active Hypercholesterolemia(Confirmed) Active Hypothyroidism(Confirmed) Active H. pylori infection(Confirmed) Active IBS (irritable bowel syndrome)(Confirmed) Active Migraines(Confirmed) Active Morbid obesity with BMI of 4 0.0-44.9, adult(Confirmed) Active Obese(Confirmed) Active ANIYA (obstructive sleep apnea)(Confirmed) Active Perennial allergic rhinitis(Confirmed) Active PLMD (periodic limb movement disorder)(Confirmed) Active PTSD (post-traumatic stress disorder)(Confirmed) Active Seasonal allergies(Confirmed) Active Vitamin D deficiency(Confirmed) Active Social History Social History Type Response Smoking Status Former smoker; Other : Quit 3 1/2 years ago; entered on: 02/11/17 Sex
--- OUTSIDE RECORDS SUMMARY | 2022-11-29 14:34 | XMS_ITS | Continuity of Care Document ---
Author Name Unknown Organization [facility] Address Adult Weight Managem ent [address] [place] [id number]- Care Team Providers Care Punchboard Stuffer Name Role Phone Ivonne Wilkerson DO Primary Care Refugio marquesel Encounter [facility] Date(s): 08/18/19 - 08/28/19 [facility] Adult Weight Management [address] [place] [address]- [facility] Attending Physician: Admtr, Ar8 Admitting Physician: Admtr, Ar8 Referring Physician: Admtr, Ar8 Allergies, Adverse Reactions, Alerts Substance Reaction Severity Status penicillins hives Active Pollen asthma, itchy eyes Active Medications [...] 2, Maintenance, 02/18/17 10:50:24,Route to Pharmacy Electronically, [id number]... Start Date: 02/18/17 Status: Ordered Gabapentin = [...] Effective Dates Status Health Status Inform ant Anxiety disorder(Confirmed) Active Asthma(Confirmed) Active Binge eating disorder, mild, in partial remission(Confirmed) Active Bipolar disorder(Confirmed) Active Fibromyalgia(Confirmed) Active GERD (gastroesophageal reflu x disease)(Confirmed) Active Helicobacter positive gastritis(Confirmed) Active Hypercholesterolemia(Confirmed) Active Hypothyroidism(Confirmed) Active IBS (irritable bowel syndrome)(Confirmed) Active Migraines(Confirmed) Active Morbid obesity with BMI of 4 0.0-44.9, adult(Confirmed) Active PTSD (post-traumatic stress disorder)(Confirmed) Active Social History Social History Type Response Smoking Status Former smoker; Other : Quit 3 1/2 years ago; entered on: 02/11/17 Sex
--- OUTSIDE RECORDS SUMMARY | 2022-11-29 14:34 | XMS_ITS | Continuity of Care Document ---
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 Name Role Phone Shane Bernal MD, Nasrin Nixon Primary Care Physicia n Encounter [facility] [place] [facility] ACCT R [id number] Date(s): 07/16/22 - 07/16/[address] [address]- Discharge Disposition: A-D/C Home Attending Physician: Rosa Maria Miranda MD Admitting Physician: oRsa Maria Miranda MD Referring Physician: Rosa Maria Miranda MD Allergies, Adverse Reactions, Alerts Substance Reaction Severity Status azithromycin hives,itchiness Active Lactose Diarrhea Irritable bowel syndrome Active Dupixent skin necrosis Active Fasenra anaphylaxis Active penicillins hives Active Pollen asthma, itchy eyes Active Medications Abilify 15 mg oral tablet 15 mg, 1, tablet, By Mouth, Daily, # 30 tablet, Refills 0, Maintenance, 07/16/22 7:11:00 EST, Partial fill upon patient request if the prescription is for a schedule II opioid drug. Start Date: 07/16/22 Status: Ordered divalproex sodium 500 mg oral tablet, extended release 1 tablet = 500 mg, By Mouth, Daily, # 30 tablet, 0 Refills, Maintenance, 04/25/21 13:58:00 EDT, ER Tablet, Partial fill upon patient request if the prescription is for a schedule II opioid drug. Start Date: 04/25/21 Status: Ordered flecainide 100 mg oral tablet 100 mg, 1, tablet, By Mouth, Every 12 hours, # 60 tablet, Refills 0, Maintenance, 07/16/22 7:11:00 EST, Partial fill upon patient request if the prescription is for a schedule II opioid drug. Start Date: 07/16/22 Status: Ordered levothyroxine 0.025 mg oral tablet 1 tablet = 25 mcg, By Mouth, Daily, # 30 tablet, 0 Refills, Maintenance, 10/02/16 15:23:29, Tablet Start Date: 10/02/16 Status: Ordered Lipitor 20 mg oral tablet 0.5 tablet = 10 mg, By Mouth, Daily at bedtime, 0 Refills, Maintenance Start Date: 10/02/16 Status: Ordered metoprolol 25 mg oral tablet, extended release 25 mg, 1, tablet, By Mouth, Daily, # 30 tablet, Refills 0, Maintenance, 07/16/22 7:12:00 EST, Partial fill upon patient request if the prescription is for a schedule II opioid drug. Start Date: 07/16/22 Status: Ordered omeprazole 20 mg oral enteric coated capsule 1 capsule = 20 mg, By Mouth, Daily, before a meal, 0 Refills, Maintenance, 04/25/21 13:58:00 EDT, EC Capsule, Partial fill upon patient request if the prescription is for a schedule II opioid drug. Start Date: 04/25/21 Status: Ordered Percocet-5 Tablet 2 tablet, Tablet, By Mouth, Every 6 hours, PRN for Pain , Severe, Routine, 07/16/22 11:26:00 EST Start Date: 07/16/22 Stop Date: 07/23/22 Status: Ordered prazosin 1 mg oral capsule 3 mg, 3, capsule, By Mouth, Daily at bedtime, Refills 0, Maintenance, 10/02/16 15:24:02 EST Start Date: 10/02/16 Status: Ordered Robaxin Tablet 500 mg, By Mouth, 3 times a day, Refills 0, Maintenance, 11/14/20 11:44:00 EDT, Partial fill upon patient request if the prescription is for a schedule II opioid drug. Start Date: 11/14/20 Status: Ordered Singulair 10 mg oral tablet 10 mg, 1, tablet, By Mouth, Daily at bedtime, Refills 0, Maintenance, 10/02/16 15:23:09 EST Start Date: 10/02/16 Status: Ordered Strattera 18 mg oral capsule 1 capsule = 18 mg, By Mouth, Daily in AM, # 30 capsule, 0 Refills, Maintenance, 07/16/22 7:11:00 EST, Capsule, Partial fill upon patient request if the prescription is for a schedule II opioid drug. Start Date: 07/16/22 Status: Ordered Vitamin B12 = 2,500 mcg, By Mouth, Daily in AM, 0 Refills, Maintenance, 10/02/16 15:24:09 EST Start Date: 10/02/16 Status: Ordered Vitamin D3 = 2,000 International_Units, By Mouth, Daily in AM, 0 Refills, Maintenance, 10/02/16 15:24:15 EST Start Date: 10/02/16 Status: Ordered Problem List Condition Confirmation Course Effective Dates Status Health Status Informant Drug reaction Confirmed Active Allergic conjunctivitis of both eyes Confirmed Active Anxiety disorder Confirmed Active Asthma Confirmed Active Binge eating disorder, mild, in partial remission Confirmed Active Bipolar disorder Confirmed Active Epistaxis Confirmed Active LGSIL of cervix of undetermined significance Confirmed Active Depression Confirmed Active Dyslipidemia Confirmed Active Inclusion cyst Confirmed Active Family history of uterine cancer Confirmed Active Fibromyalgia Confirmed Active Fibromyalgia Confirmed Active GERD (gastroesophageal reflux disease) Confirmed Active Helicobacter positive gastritis Confirmed Active Hypercholesterolemia Confirmed Active Hypothyroidism Confirmed Active H. pylori infection Confirmed Active IBS (irritable bowel syndrome) Confirmed Active Migraines Confirmed Active Morbid obesity with BMI of 40.0-44.9, adult Confirmed Active Obese class II Confirmed Active Obese Confirmed Active ANIYA (obstructive sleep apnea) Confirmed Active Perennial allergic rhinitis Confirmed Active PLMD (periodic limb movement disorder) Confirmed Active PTSD (post-traumatic stress disorder) Confirmed Active Seasonal allergies Confirmed Active Vitamin D deficiency Confirmed Active Vital Signs Most recent to oldest [Reference Range]: 1 2 3 Height 165 cm (07/16/22 6:02 PM) 165 cm (07/16/22 3:04 PM) 165 cm (07/16/22 11:17 AM) Weight 102.2 kg (07/16/22 7:20 AM) 102.2 kg (07/16/22 7:13 AM) Oxygen Saturation [94-100 %] 100 % (07/16/22 3:04 PM) 99 % (07/16/22 11:17 AM) 100 % (07/16/22 7:21 AM) Pulse Rate [55-90 bpm] 67 bpm (07/16/22 3:04 PM) 90 bpm (07/16/22 11:17 AM) 79 bpm (07/16/22 7:21 AM) Blood Pressure [90-138/55-84 mm Hg] 117/76mm Hg (07/16/22 6:02 PM) 122/73mm Hg (07/16/22 3:04 PM) 123/73mm Hg (07/16/22 11:17 AM) Respiratory Rate [16-30 br/min] 20 br/min (07/16/22 3:34 PM) 18 br/min (07/16/22 3:04 PM) 18 br/min (07/16/22 11:17 AM) Temperature [96.8-100.4 DegF] 98.3 DegF (07/16/22 3:04 PM) 98.3 DegF (07/16/22 7:21 AM) Mode of Delivery (Oxygen) Room air (07/16/22 3:04 PM) Room air (07/16/22 11:17 AM) Room air (07/16/22 7:21 AM) Blood pressure sites Arm, left (07/16/22 6:02 PM) Arm, right (07/16/22 3:04 PM) Arm, right (07/16/22 11:17 AM) Temperature Route Temporal (07/16/22 3:04 PM) Oral (07/16/22 7:21 AM) Dry Weight 102.2 kg (07/16/22 7:13 AM) Social History Social History Type Response Smoking Status Former smoker; Other : Quit 3 1/2 years ago; entered on: 02/11/17 Sex Implantable Device List Procedure Provider Procedure Date Device Type Site Transvaginal Tape Coral Jose MD 11/21/20 Unkn own Vagina Device Identifier Serial Number Lot or Batch Number Manufacturing Date Expiration Date Distinct Identification Code MRI Safety Implantable Status Assigning Authority [id number] Unknown [id number] Unknown 05/09/23 Unknown Unknown Active GS1 History and physical note * Event Display: History and Physical Hospital Authored Date: EKG study * Event Display: ECG 12-Lead Authored Date: Please click on pdf link to open report * Event Display: ECG 12-Lead Authored Date: Ventricular Rate: 79 BPM Atrial Rate: 79 BPM P-R Interval: 150 ms QRS Duration: 80 ms Q-T Interval: 382 ms QTC Calculation(Bazett): 438 ms P Isabel: 51 degrees R Isabel: 25 degrees T Isabel: -2 degrees Normal sinus rhythm Septal infarct , age undetermined Abnormal ECG When compared with ECG of 20-APR-2019 20:56, Nonspecific T wave abnormality now evident in Anterior leads Confirmed by ARON STEPHENS ([id number]) on 07/16/2022 11:50:29 AM Patterson: ARON STEPHENS [facility] Progress note * Celestina Glaser RN: PERFORM, SIGN, VERIFY Event Display: Progress Note Hospital Authored Date: [id number] Patient: REGINA PANG Age: 41 years Sex: Female : 1980 Associated Diagnoses: None Author: Celestina Glaser RN Findings Narrative/Incidental Pt arrived to floor from E.P. lab alert oriented lying in on [facility] . Transfered from [facility] without difficulty. Pt educated on need to be on bedrest for 4 hours. PT has bilateral groin sites dressing cdi. Pt oriented to room and call davila system call davila within reach will continue to monitor.. * Sameer White RN: PERFORM, SIGN, VERIFY Event Display: Progress Note Hospital Authored Date: [id number] Patient: REGINA PANG Age: 41 years Sex: Female : 1980 Associated Diagnoses: None Author: Sameer White RN Findings Narrative/Incidental Pt A/Ox4, NPO since midnight except meds, daystay assessment, home med review and pre procedure checklist charted in [facility], COVID negative, L arm 20g IV placed, EKG obtained.. Note * Celestina Glaser RN: PERFORM Event Display: Discharge/Transfer Note Hospital Authored Date: [id number] Nursing Discharge Note Entered On: 07/16/2022 18:56 EST Performed On: 07/16/2022 18:56 EST by Celestina Glaser RN Nursing Discharge Note 2 Discharge Time : 07/16/2022 18:56 EST Discharge Level of Care at Discharge : Home/Senior Care/Foster Care Patient Left Unit Via : Wheelchair Patient Accompanied Off Unit with : Parent DC Instructions Provided & Signed by Pt : Yes Patient Understands D/C Instructions : Yes Patient Instructions Discharge Signed : Yes Did Pt have Specialty Bed or Wound Vac : No Celestina Glaser RN - 07/16/2022 18:56 EST * Rosa Maria Miranda MD: VERIFY, PERFORM, SIGN Event Display: Discharge/Transfer Note Hospital Authored Date: [id number] Patient: REGINA PANG Age: 41 years Sex: Female : 1980 Associated Diagnoses: None Author: Rosa Maria Miranda MD No acute issues, maintaining NSR Physical Examination Vital Signs Reviewed Results: Vitals : VITALS(Date Range: 07/15/2022 0:00 EST - 07/16/2022 17:39 EST). General Appearance NAD. Respiratory Lungs: CTA. Cardiac Cardiac: no M/G/R. Rhythms: RRR. Abdomen/GI Abdomen: soft, non-tender. Extremities Extremities: no clubbing, no cyanosis. Neurologic Alert & oriented x 3 . Results Review Reviewed Impression and Plan Discharge Diagnosis: Paroxysmal atrial tachycardia Palpitations Procedures done Comprehensive EP study No mechanism of arrhythmia found No ablation done Discharge Medications Abilify 15 mg PO QD Strattera 18 mg PO QD Atorvastatin 20 mg PO QHS Cholecalciferol Cyancobalamin Divalproex 500 mg PO QD Flecainide 100 mg PO BID Levothyroxine .025 mg PO QD Robaxin Metoprolol 25 mg PO QD Montelukast 10 mg PO QD Omeprazole 20 mg PO QD Prazosin 1 mg PO QD Follow-up with Dr. Toro on 07/18/2022 Celestina Bennett RN: PERFORM Event Display: Patient Education/Instruction Authored Date: [id number] Inpatient Adult Discharge Instructions [address] [id number] Name: REGINA DALE : 1980 Visit: 07/16/2022 06:45:00 Current Date: 07/16/2022 18:01 Account: [id number] Inpatient Adult Discharge Instructions We would like to thank you for allowing us to assist you with your healthcare needs. The following includes patient education materials and information regarding your injury/illness. Our entire staffstrives to provide an excellent experience for our patients and their families. PLEASE ENSURE YOU FOLLOW-UP PER THE INSTRUCTIONS BELOW! ?? YOUR OPINION IS IMPORTANT TO US! Please complete the survey you may receive by mail or email. Your feedback will be used to make improvements to the healthcare experiences of our patients and their families. Surveys are administered by [employer] ?? If further treatment with your primary care physician or another doctor is recommended, it is important for you to keep the appointment. Call your primary care physician or return to the Emergency Department immediately if your condition worsens, fails to improve, or new symptoms develop. If you need to find a doctor, you can call [facility] for a referral at [phone] or toll free at [phone] ([phone]) or log in to [email or web address] ?? You can view and manage your care through the patient portal or by using a health care christopher of your choosing. [employer] is a website that allows you to securely view your medical information including your hospital discharge summary, office visit summaries, medications and follow-up visits. You can also request appointments, renew medications, and request access to your medical information using a health care christopher of your choosing, or just ask a question. You can enroll at [email or web address] or register during your next office visit. You have been discharged from [facility], Patient Care Unit: M7. If you have any questions regarding these instructions after you leave, please call us and we will be happy to assist you. [facility] Your Care Team Attending Physician Rosa Maria Miranda MD Discharging Providers Rosa Maria Miranda MD Reason for Admission ablation Tests Performed Below is a partial list of the tests performed during your hospitalization. You may have had other tests and procedures not included in this list. Please discuss all test results with your provider. Test Urine Primary Care Provider Nasrin Singh MD Advance Directive Health Care Proxy on File No Patient refuses to discuss No qualifying data available. Discharge Vitals Temperature: 98.3 DegF Height: 165 cm Pulse Rate: 67 bpm Weight: 102.2 kg Respiratory Rate: 20 br/min ?? Systolic Blood Pressure: 122 mm Hg ?? Diastolic Blood Pressure: 73 mm Hg ?? Oxygen Saturation: 100 % ?? Studies Pending All tests and labs ordered during this hospital stay have been completed unless listed below. Please discuss all pending results with your provider listed above in these instructions. ?? No incomplete studies found What to do next Instructions From Your Doctor Discharge Orders Scheduled Follow-Up Appointments Saturday 9:00 AM EST ?? Where: Electrophysiology You Need to Schedule the Following Appointments Follow Up with??Lianne Nolan When??08/13/2022 12:40 PM EST Where: [address] [facility] [place] [address] [facility] (1) Discharge Medications REGINA PANG :1980 Visit Date:07/16/2022 Medications: Please continue your medications until treatment is completed or stopped by your provider. Medications not listed below should be discontinued. Discuss any questions related to medications with your provider. What How Much When Instructions Next Dose Unchanged Aripiprazole (Abilify 15 mg oral tablet) 1 tab(s) Oral Daily 07/17/800 Unchanged Atomoxetine (Strattera 18 mg oral capsule) 1 capsule Oral Daily in the morning 07/17/800 Unchanged Atorvastatin (Lipitor 20 mg oral tablet) 0.5 tab(s) Oral Daily at Bedtime 07/16 bedtime Unchanged Cholecalciferol (Vitamin D3) 2,000 International Unit Oral Daily in the morning 07/17/800 Unchanged Cyanocobalamin (Vitamin B12) 2,500 Microgram Oral Daily in the morning 07/17/800 Unchanged Divalproex Sodium (divalproex sodium 500 mg oral tablet, extended release) 1 tab(s) Oral Daily 07/17/800 Unchanged Flecainide (flecainide 100 mg oral tablet) 1 tab(s) Oral Every 12 hours 07/16 8pm Unchanged Levothyroxine (levothyroxine 0.025 mg oral tablet) 1 tab(s) Oral Daily 07/17/800 Unchanged Methocarbamol (Robaxin Tablet) 500 Milligram Oral 3 times a day 07/16 bedtime Unchanged Metoprolol (metoprolol 25 mg oral tablet, extended release) 1 tab(s) Oral Daily 07/17/800 Unchanged Montelukast (Singulair 10 mg oral tablet) 1 tab(s) Oral Daily at Bedtime 07/16 bedtime Unchanged Omeprazole (omeprazole 20 mg oral enteric coated capsule) 1 capsule Oral Daily before a meal ?? 07/17/800 Unchanged Prazosin (prazosin 1 mg oral capsule) 3 capsule Oral Daily at Bedtime 07/16 bedtime Test Results Below is a partial list of the most recent Laboratory test results done prior to this discharge. You may have had other tests and procedures not included in this list. Please discuss all test resultswith your provider. Test Urine (07/16/2022) ???Urine, - NEGATIVE Allergies (NKA means No Known Allergies) Dupixent??( skin necrosis ) Fasenra??( anaphylaxis ) Lactose??(Diarrhea, Irritable bowel syndrome) Pollen??(asthma, itchy eyes) azithromycin??( hives,itchiness ) penicillins??(hives) Problems Active Problems??(30) Allergic conjunctivitis of both eyes?? Anxiety disorder?? Asthma?? Binge eating disorder, mild, in partial remission?? Bipolar disorder?? Depression?? Drug reaction?? Dyslipidemia?? Epistaxis?? Family history of uterine cancer?? Fibromyalgia?? Fibromyalgia?? GERD (gastroesophageal reflux disease)?? H. pylori infection?? Helicobacter positive gastritis?? Hypercholesterolemia?? Hypothyroidism?? IBS (irritable bowel syndrome)?? Inclusion cyst?? LGSIL of cervix of undetermined significance?? Migraines?? Morbid obesity with BMI of 40.0-44.9, adult?? Obese?? Obese class II?? ANIYA (obstructive sleep apnea)?? Perennial allergic rhinitis?? PLMD (periodic limb movement disorder)?? PTSD (post-traumatic stress disorder)?? Seasonal allergies?? Vitamin D deficiency?? Education Materials Below is the list of Educational Leaflet Providered with your Discharge Instructions. Catheter Ablation for Arrhythmia?? Valuables and Belongings I fully understand and agree that [facility] accepts no responsibility for all my personal property including clothing, toilet articles, radios, jewelry, dentures, hearing aids, rings, money, or any other property that is in my possession or is brought to me after admission. I understand certain valuables may be placed in a hospital safe for a short period of time. I understand that the hospital is not liable for loss or damage due to accident, fire, or other natural occurrence while said property is in the safe. I accept full responsibility for any personal property that I keep with me, and will not hold the hospital responsible in case of loss or disappearance. I acknowledge that i have been encouraged to send valuables and belongings home. ?? Review of Valuable and Belonging List: With patient Date for Pt to Sign Valuables/Belongings: 07/16/22 11:17:00 ?? Other Discharge Information ? Pulmonary Rehab Status?? Pulmonary Rehab Discharge Status?? Respiratory Rate: 20 br/min ? Common Emergency Awareness Tips IS IT A STROKE? Act FAST and Check for these signs: FACE Does the face look uneven? ARM Does one arm drift down? SPEECH Does their speech sound strange? TIME Call at any sign of stroke ?? Heart Attack Signs Chest discomfort: Most heart attacks involve discomfort in the center of the chest and lasts more than a few minutes, or goes away and comes back. It can feel like uncomfortable pressure, squeezing, fullness or pain. Discomfort in upper body: Symptoms can include pain or discomfort in one or both arms, back, neck, jaw or stomach. Shortness of breath: With or without discomfort. Other signs: Breaking out in a cold sweat, nausea, or lightheaded. Remember, MINUTES DO MATTER. If you experience any of these heart attack warning signs, call to get immediate medical attention! ?? Smoking can increase your chances of developing chronic health problems and can cause harmful effects to other family members in your house. If you smoke, you are strongly encouraged to quit. Please call [employer] Link at [phone] or 8-863-769[place] ([phone]) or log in to [email or web address] for referrals to smoking cessation programs. ?? The National Suicide Prevention Hotline is available 25/02 if you or someone you know needs to find a reason to keep living. By calling 1-707-244-talk (4180) you'll be connected to a skilled, trained counselor at a crisis center in your area. INPATIENT DISCHARGE INSTRUCTIONS SIGNATURE PAGE REGINA PANG Location:[facility] Registration Date and Time:07/16/2022 06:45 EST Primary Care Physician: Shane Bernal MD, Nasrin Nixon, I REGINA PANG, have received the above patient education materials/instructions and have verbalized understanding. If ambulance or transport services are being used I further acknowledge being given a choice of service. ?? If you need to contact me, please call me at this number: . Patient/Retail Team Member Name: Patient/Retail Team Member Signature: Relationship to Patient: Witness Name/Signature: Date: * Celestina Glaser RN: PERFORM Event Display: Patient Education Leaflets Authored Date: [id number] Catheter Ablation for Arrhythmia ?? Catheter Ablation for Arrhythmia - Video Catheter ablation can fix a cardiac arrhythmia when medicines used to treat it don???t work. The ablation stops abnormal electrical signals in your heart. This lets your normal heart rhythm take overagain. To view the video go to this web address: [email or web address] Or, scan this QR code with your smart phone Last Reviewed Date: 2020 ?? 2288-0028 [employer]. All rights reserved. This information is not intended as a substitute for professional medical care. Always follow your healthcare professional's instructions. ?? Patient Care team information Care Team Personnel Name: Shane Bernal MD, Nasrin Nixon Position: Reference Physician Member Role: PCP Address: Address: [address] [place] [address] Name: Sameer White RN Position: S RN Member Role: Primary Care Nurse Care Team Related Persons Name: GUI HARPER [address]: [address] [address]
--- OUTSIDE RECORDS SUMMARY | 2022-11-29 14:34 | XMS_ITS | Continuity of Care Document ---
Author Name Unknown Organization [facility] ter Address [address] [place] [address]- Care Team Providers Care Designer Name Role Phone Carmenaltagracia Ivonne Evans DO Primary Care Margaretsravanthi cordero Encounter [facility] [place] Date(s): 11/21/20 - 11/21/[address] [address] Discharge Disposition: A-D/C Home Attending Physician: Coral Layton MD Admitting Physician: Coral Layton MD Referring Physician: Coral Layton MD Allergies, Adverse Reactions, Alerts Substance Reaction Severity Status azithromycin hives,itchiness Active penicillins hives Active Pollen asthma, itchy eyes Active Dupixent skin necrosis Active Fasenra anaphylaxis Active Medications acetaminophen 325 mg oral capsule 2 capsule = 650 mg, By Mouth, Every 4 hours, PRN as needed for pain, # 50 capsule, 0 Refills, Maintenance, 11/21/20 8:28:00 EDT, Capsule, [id number], Partial fill upon patient request if the prescription is for a schedule II opioid drug., 167.... Start Date: 11/21/20 Status: Ordered amitriptyline 150 mg oral tablet 1 tablet = 150 mg, By Mouth, Daily at bedtime, 0 Refills, Maintenance, 10/02/16 15:22:53 Start Date: 10/02/16 Status: Ordered Colace sodium 100 mg oral capsule 100 mg, 1, capsule, By Mouth, 2 times a day, PRN, # 14 capsule, Refills 0, Tot. Refills 0, Maintenance, for constipation, 01/28/17 14:29:59, Print Requisition Start Date: 01/28/17 Stop Date: 02/04/17 Status: Ordered Depakote ER = 1,000 mg, By Mouth, Daily at bedtime, 0 Refills, Maintenance, 10/02/16 15:22:33 EST Start Date: 10/02/16 Status: Ordered duloxetine 60 mg oral enteric coated capsule 1 capsule = 60 mg, By Mouth, Daily at bedtime, 0 Refills, Maintenance, 10/02/16 15:22:11 EST Start Date: 10/02/16 Status: Ordered Gabapentin = 300 mg, By Mouth, 3 times a day, 0 Refills, Maintenance, 10/02/16 15:22:20 EST Start Date: 10/02/16 Status: Ordered HYDROmorphone Inj (PACU ONLY) 0.2 mg, Injection, IV Push Slowly, Every 5 minutes, up to a maximum of 2 mg, Hold for: RR less than8 OR Sedation Scale of C, PRN for Pain , Severe, Routine, 11/21/20 7:55:00 EDT Start Date: 11/21/20 Stop Date: 11/21/20 Status: Discontinued ibuprofen 600 mg oral tablet 600 mg, 1, tablet, By Mouth, Every 6 hours, # 40 tablet, Refills 0, Tot. Refills 0, Maintenance, 11/21/20 8:28:00 EDT, Route to Pharmacy Electronically, [facility]/pharmacy #[id number], Partial fill upon patient request if the prescription is for a schedule II opi... Start Date: 11/21/20 Status: Ordered levothyroxine 0.025 mg oral tablet 1 tablet = 25 mcg, By Mouth, Daily, # 30 tablet, 0 Refills, Maintenance, 10/02/16 15:23:29, Tablet Start Date: 10/02/16 Status: Ordered Lipitor 20 mg oral tablet 0.5 tablet = 10 mg, By Mouth, Daily at bedtime, 0 Refills, Maintenance Start Date: 10/02/16 Status: Ordered oxyCODONE 10 mg oral tablet 1 tablet = 10 mg, By Mouth, Every 4 hours, PRN as needed for pain, prn for pain, # 7 tablet, 0 Refills, Maintenance, 11/21/20 15:27:00 EDT, Tablet, [facility]/pharmacy #[id number], Partial fill upon patient request if the prescription is for a schedule II opioid d... Start Date: 11/21/20 Status: Ordered OxyCODONE IR Tablet 10 mg, Tablet, By Mouth, Every 4 hours, in PACU ONLY, if patient can tolerate PO, PRN for Pain , Moderate, Routine, 11/21/20 7:55:00 EDT Start Date: 11/21/20 Stop Date: 11/21/20 Status: Discontinued Pepcid 20 mg oral tablet 1 tablet = 20 mg, By Mouth, 2 times a day, Maintenance, 11/14/20 11:38:00 EDT, Tablet, Partial fillupon patient request if the prescription is for a schedule II opioid drug. Start Date: 11/14/20 Status: Ordered prazosin 1 mg oral capsule 1 mg, 1, capsule, By Mouth, Daily at bedtime, Refills 0, Maintenance, 10/02/16 15:24:02 Start Date: 10/02/16 Status: Ordered Robaxin Tablet [...] 15:23:09 EST Start Date: 10/02/16 Status: Ordered Vitamin B12 = 2,500 mcg, [...] Seasonal allergies(Confirmed) Active Vitamin D deficiency(Confirmed) Active Vital Signs Most recent to oldest [Reference Range]: 1 2 3 Height 167.64 cm (11/21/20 6:51 AM) 167.64 cm (11/14/20 11:55 AM) Weight 110.1 kg (11/21/20 6:51 AM) 109.55 kg (11/14/20 11:55 AM) Oxygen Saturation [94-100 %] 100 % (11/21/20 9:30 AM) 96 % (11/21/20 9:15 AM) 100 % (11/21/20 9:00 AM) Pulse Rate [55-90 bpm] 82 bpm (11/21/20 6:51 AM) Body Mass Index [18.5-24.99] 39.18 *>HHI* (11/21/20 6:51 AM) 38.98 *>HHI* (11/14/20 11:55 AM) Blood Pressure [90-138/55-84 mm Hg] 101/66mm Hg (11/21/20 9:30 AM) 91/64mm Hg (11/21/20 9:15 AM) 97/58mm Hg (11/21/20 9:00 AM) Respiratory Rate [16-30 br/min] 14 br/min *L* (11/21/20 9:26 AM) 16 br/min (11/21/20 9:07 AM) 15 br/min *L* (11/21/20 8:56 AM) Temperature [96.8-100.4 DegF] 97.1 DegF (11/21/20 8:15 AM) 98.2 DegF (11/21/20 6:51 AM) Mode of Delivery (Oxygen) Room air (11/21/20 9:00 AM) Room air (11/21/20 8:45 AM) Room air (11/21/20 8:30 AM) Blood pressure sites Arm, right (11/21/20 6:51 AM) Temperature Route Femoral (11/21/20 8:15 AM) Temporal (11/21/20 6:51 AM) Dry Weight 110.1 kg (11/21/20 6:51 AM) 109.55 kg (11/14/20 11:55 AM) Weight Obtained Via Standing scale (11/21/20 6:51 AM) Patient/family stated (11/14/20 11:55 AM) Dry Weight Obtained Via Standing scale (11/21/20 6:51 AM) Patient/family stated (11/14/20 11:55 AM) Social History Social History Type Response Smoking Status Former smoker; Other : Quit 3 1/2 years ago; entered on: 02/11/17 Sex Medical Equipment Implanted Date:11/21/20Target Site:Vagina Description Quantity MRI Company Model SYSTEM SLING ADVANTAGE BLUE - BSCI ([id number]) 1 [employer] Daniela Unknown CAR[place]INA:{01}[id number] Assigning Authority:FDA
--- OUTSIDE RECORDS SUMMARY | 2022-11-29 14:34 | XMS_ITS | Continuity of Care Document ---
Author Name Unknown Organization [facility] al Address [address] [place] [address]- Care Team Providers Care Global Analytics Head Name Role Phone Shane Bernal MD, Nasrin Nixon Primary Care Physicia n Encounter [facility] Date(s): 05/12/22 - 05/13/[address] [address]- Discharge Disposition: A-D/C Home Attending Physician: Lavelle Jacome MD Admitting Physician: Lavelle Jacome MD Referring Physician: Not on Staff, Referring MD Allergies, Adverse Reactions, Alerts Substance Reaction Severity Status azithromycin hives,itchiness Active penicillins hives Active Pollen asthma, itchy eyes Active Lactose Diarrhea Irritable bowel syndrome Active Dupixent skin necrosis Active Fasenra anaphylaxis Active Medications acetaminophen 325 mg oral tablet 975 mg, Tablet, By Mouth, Once, Routine, 05/13/22 3:00:00 EDT, Stop date 05/13/22 3:00:00 EDT Start Date: 05/13/22 Stop Date: 05/13/22 Status: Completed divalproex sodium 500 mg oral tablet, extended release 1 tablet = 500 mg, By Mouth, Daily, # 30 tablet, 0 Refills, Maintenance, 04/25/21 13:58:00 EDT, ER Tablet, Partial fill upon patient request if the prescription is for a schedule II opioid drug. Start Date: 04/25/21 Status: Ordered doxycycline hyclate 100 mg oral capsule 1 capsule = 100 mg, By Mouth, 2 times a day, # 20 capsule, 0 Refills, Acute 05/23/22 2:57:00 EDT, 05/13/22 2:57:00 EDT, [facility]aps[facility], [id number], Partial fill upon patient request if the prescription is for a schedule II opioid drug., 165, cm, 10/0... Start Date: 05/13/22 Stop Date: 05/23/22 Status: Ordered levothyroxine 0.025 mg oral tablet 1 tablet = 25 mcg, By Mouth, Daily, # 30 tablet, 0 Refills, Maintenance, 10/02/16 15:23:29, Tablet Start Date: 10/02/16 Status: Ordered Lipitor 20 mg oral tablet 0.5 tablet = 10 mg, By Mouth, Daily at bedtime, 0 Refills, Maintenance Start Date: 10/02/16 Status: Ordered omeprazole 20 mg oral enteric coated capsule 1 capsule = 20 mg, By Mouth, Daily, before a meal, 0 Refills, Maintenance, 04/25/21 13:58:00 EDT, EC Capsule, Partial fill upon patient request if the prescription is for a schedule II opioid drug. Start Date: 04/25/21 Status: Ordered ondansetron 4 mg oral tablet, disintegrating 1 tablet = 4 mg, By Mouth, Every 8 hours, PRN Nausea & Vomiting, # 10 tablet, 0 Refills, Acute 05/23/22 3:12:00 EDT, 05/13/22 3:12:00 EDT, Tablet, [facility]/pharmacy #[id number], Partial fill upon patient request if the prescription is for a schedule II opioid drElaina.. Start Date: 05/13/22 Stop Date: 05/23/22 Status: Ordered prazosin 1 mg oral capsule [...] Range]: 1 2 3 Height 165 cm (05/13/22 2:46 AM) 165 cm (05/13/22 1:10 AM) 165 cm (05/12/22 9:16 PM) Weight 105.8 kg (05/13/22 2:46 AM) 105.8 kg (05/12/22 9:16 PM) 105.8 kg (05/12/22 9:15 PM) Oxygen Saturation [94-100 %] 99 % (05/13/22 2:46 AM) 100 % (05/13/22 1:10 AM) 100 % (05/12/22 9:15 PM) Pulse Rate [55-90 bpm] 77 bpm (05/13/22 2:46 AM) 69 bpm (05/13/22 1:10 AM) 77 bpm (05/12/22 9:15 PM) Body Mass Index [18.5-24.99 kg/m2] 38.86 kg/m2 *>HHI* (05/13/22 2:46 AM) 38.86 kg/m2 *>HHI* (05/12/22 9:15 PM) Blood Pressure [90-138/55-84 mm Hg] 125/71mm Hg (05/13/22 2:46 AM) 127/65mm Hg (05/13/22 1:10 AM) 137/77mm Hg (05/12/22 9:15 PM) Respiratory Rate [16-30 br/min] 18 br/min (05/13/22 2:59 AM) 18 br/min (05/13/22 2:46 AM) 16 br/min (05/13/22 1:10 AM) Temperature [96.8-100.4 DegF] 97.6 DegF (05/13/22 2:46 AM) 97.2 DegF (05/12/22 9:15 PM) Mode of Delivery (Oxygen) Room air (05/13/22 2:46 AM) Room air (05/13/22 1:10 AM) Room air (05/12/22 9:15 PM) Blood pressure sites Arm, right (05/13/22 2:46 AM) Arm, right (05/13/22 1:10 AM) Arm, right (05/12/22 9:15 PM) Temperature Route Oral (05/13/22 2:46 AM) Temporal (05/12/22 9:15 PM) Dry Weight 105.8 kg (05/13/22 2:46 AM) 105.8 kg (05/12/22 9:16 PM) 105.8 kg (05/12/22 9:15 PM) Weight Obtained Via Standing scale (05/12/22 9:15 PM) Dry Weight Obtained Via Standing scale (05/12/22 9:15 PM) Social History Social History Type Response Smoking Status Former smoker; Other : Quit 3 1/2 years ago; entered on: 02/11/17 Sex Implantable Device List Procedure Provider Procedure Date Device Type Site Transvaginal Tape Coral Jose MD 11/21/20 Unkn own Vagina Device Identifier Serial Number Lot or Batch Number Manufacturing Date Expiration Date Distinct Identification Code MRI Safety Implantable Status Assigning Authority [id number] Unknown [id number] Unknown 05/09/23 Unknown Unknown Active GS1 Patient Care team information Personnel Name: Shane Bernal MD, Nasrin Nixon Address: Address: [address] [place] [address] Medical Group ALAN [place] [address]- [place]
--- OUTSIDE RECORDS SUMMARY | 2022-11-29 14:34 | XMS_ITS | Continuity of Care Document ---
Author Name Unknown Organization [facility] [employer] Laurelbrooklynn Bardales [employer] Address [address], [address] [place] [address]- Care Team Providers Care Cloth Colorer Name Role Phone Ivonne Wilkerson DO Primary Care Refugio cordero Encounter [facility] Date(s): 12/25/19 - 01/24/20 [facility] [employer] [facility] [address], [address]th [place] [address]- [facility] Attending Physician: AdmPhoenix [email or web address] Admitting Physician: Admtr, Ar8 Referring Physician: Admtr, [...] 2, Maintenance, 02/18/17 10:50:24,Route to Pharmacy Electronically, [id number]... Start Date: 02/18/17 Status: Ordered Gabapentin = [...]
--- OUTSIDE RECORDS SUMMARY | 2022-11-29 14:34 | XMS_ITS | Continuity of Care Document ---
Author Name Unknown Organization [facility] Antonia [employer] Address [address], [address]t [place] [address]- Care Team Providers Care Lean Engineer Name Role Phone Ivonne Wilkerson DO Primary Care Refugio cordero Encounter [facility] [place] Date(s): 11/13/19 - 01/24/20 [facility] [employer] [facility] [address], [address]th [place] [address]- [facility] Attending Physician: Coral Layton MD Admitting Physician: Coral Layton MD Referring Physician: Ivonne Wilkerson DO Allergies, Adverse Reactions, Alerts Substance Reaction Severity [...] 2, Maintenance, 02/18/17 10:50:24,Route to Pharmacy Electronically, [id number]... Start Date: 02/18/17 Status: Ordered Gabapentin = [...]
--- OUTSIDE RECORDS SUMMARY | 2022-11-29 14:34 | XMS_ITS | Continuity of Care Document ---
Author Name Unknown Organization [facility] Antonia Bardales [employer] Address [address], [address] [place] [address]- Care Team Providers Care Power Lineman Technician Name Role Phone Ivonne Wilkerson DO Primary Care Refugio cordero En[place] [facility] Date(s): 10/15/19 - 12/10/19 [facility] [employer] [facility] [address], [address] [place] [address]- [facility] Attending Physician: Coral Layton MD Admitting [...] 2, Maintenance, 02/18/17 10:50:24,Route to Pharmacy Electronically, [id number]... Start Date: 02/18/17 Status: Ordered Gabapentin = [...]
--- OUTSIDE RECORDS SUMMARY | 2022-11-29 14:34 | XMS_ITS | Continuity of Care Document ---
Author Name Unknown Organization [facility] Antoniabrooklynn Bardales [employer] [facility] Address [address], [address] [place] [address]- Care Team Providers Care Centrifugal Separator Name Role Phone Ivonne Wilkerson DO Primary Care Refugio gil [id number] Date(s[facility] 11/21/20 - 12/21/20 [facility] [employer] [facility] [address], [address] [place], [place] [address] Allergies, Adverse Reactions, Alerts Substance Reaction Severity Status azithromycin hives,itchiness Active penicillins hives Active Pollen asthma, itchy eyes Active Dupixent skin necrosis Active Fasenra anaphylaxis Active Medications acetaminophen 325 mg oral capsule 2 capsule = 650 mg, By Mouth, Every 4 hours, PRN as needed for pain, # 50 capsule, 0 Refills, Maintenance, 11/21/20 8:28:00 EDT, [id number], Partial fill upon patient request if the [...] 15:22:20 EST Start Date: 10/02/16 Status: Ordered ibuprofen 600 mg oral tablet 600 mg, 1, tablet, By Mouth, Every 6 hours, # 40 tablet, Refills 0, Tot. Refills 0, Maintenance, 11/21/20 8:28:00 EDT, Route to Pharmacy Electronically, [facility]/pharmacy #[id number], Partial fill upon patient request if the [...] 0 Refills, Maintenance, 11/21/20 15:27:00 EDT, Tablet, [facility]/pharmacy #[id number], Partial fill upon patient request if the prescription is for a schedule II opioid d... Start Date: 11/21/20 Status: Ordered Pepcid 20 mg oral tablet 1 tablet [...] Model SYSTEM SLING ADVANTAGE BLUE - BSCI ([id number]) 1 Ina[employer] Daniela Unknown [place]:{01}[id number]{[phone] Assigning Authority:FDA
--- OUTSIDE RECORDS SUMMARY | 2022-11-29 14:34 | XMS_ITS | Continuity of Care Document ---
Author Name Unknown Organization [facility] Catia [employer] [facility] Address [address] [place] [address], [place] [address]- Care Team Providers Care Bank Guard Name Role Phone Ivonne Wilkerson DO Primary Care Refugio cordero [place] [facility] Date(s): 12/05/20 - 01/04/21 [facility] [employer] Fink[employer] [facility] [address] [facility], [address] [place], [place] [address] Attending Physician: Admtr, Ar8 Admitting Physician: Admtr, [...] Refills, Maintenance, 11/21/20 8:28:00 EDT, [id number], Partial fill upon patient request if the [...] 11/21/20 8:28:00 EDT, Route to Pharmacy Electronically, [facility]/pharmacy #[id number], Partial fill upon patient request if the [...] 0 Refills, Maintenance, 11/21/20 15:27:00 EDT, Tablet, [facility]/pharmacy #[id number], Partial fill upon patient request if the [...] Model SYSTEM SLING ADVANTAGE BLUE - BSCI ([id number]) 1 [employer] Unknown [place]:{01}[id number]{10}[phone] Assigning Authority:FDA
--- OUTSIDE RECORDS SUMMARY | 2022-11-29 14:34 | XMS_ITS | Continuity of Care Document ---
Author Name Unknown Organization [facility] ter Address [address] [place] [address]- Care Team Providers Care Manager General Name Role Phone Claude Yi MD Primary Care Physician En[place] [facility] Date(s): 05/04/21 - 05/04/[address] [address] Discharge Disposition: A-D/C Home Attending Physician: Rony Briggs MD Admitting Physician: Rony Briggs MD Referring Physician: Rony Briggs MD Allergies, Adverse Reactions, Alerts Substance Reaction Severity Status azithromycin hives,itchiness Active penicillins hives Active Pollen asthma, itchy eyes Active Lactose Diarrhea Irritable bowel syndrome Active Dupixent skin necrosis Active Fasenra anaphylaxis Active Medications amitriptyline 100 mg oral tablet 1 tablet = 100 mg, By Mouth, Daily at bedtime, # 30 tablet, 0 Refills, Maintenance, 04/25/21 13:57:00 EDT, Tablet, Partial fill upon patient request if the prescription is for a schedule II opioid drug. Start Date: 04/25/21 Status: Ordered divalproex sodium 500 mg oral tablet, extended release 1 tablet = 500 mg, By Mouth, Daily, # 30 tablet, 0 Refills, Maintenance, 04/25/21 13:58:00 EDT, ER Tablet, Partial fill upon patient request if the prescription is for a schedule II opioid drug. Start Date: 04/25/21 Status: Ordered duloxetine 60 mg oral enteric coated capsule 1 capsule = 60 mg, By Mouth, Daily at bedtime, 0 Refills, Maintenance, 10/02/16 15:22:11 EST Start Date: 10/02/16 Status: Ordered Gabapentin = 300 mg, By Mouth, 3 times a day, 0 Refills, Maintenance, 10/02/16 15:22:20 EST Start Date: 10/02/16 Status: Ordered levothyroxine 0.025 [...] opioid drug. Start Date: 04/25/21 Status: Ordered OxyCODONE IR Tablet 5 mg, Tablet, By Mouth, Every 4 hours, in PACU ONLY, if patient can tolerate PO, PRN for Pain , Mild, Routine, 05/04/21 14:19:00 EDT Start Date: 05/04/21 Stop Date: 05/05/21 Status: Discontinued prazosin 1 mg oral capsule 3 mg, [...] Seasonal allergies(Confirmed) Active Vitamin D deficiency(Confirmed) Active Results Radiology Reports * Exam Date Time Procedure Performing Provider Status 05/04/21 2:21 PM C-Arm < 1 Hour Monica Branch; Oscar (Verified) Notes: (C-Arm < 1 Hour) Reason For Exam: Left cysto stent RESULT: C-Arm < 1 Hour Urethrocystography Retrograde, C-Arm < 1 Hour INDICATION: left cysto stent COMPARISONS: None TECHNIQUE: Fluoroscopy support was provided. There was no radiologist in attendance. Fluoroscopy time: 12.1 seconds Technologist time: 25 minutes Exposure: 4.975 mGy FINDINGS: 4 images were submitted. A left ureteral stent was placed. Please refer to operative note for full details. IMPRESSION: See above. WSN: [id number] Ordering Physician: Rony Briggs Dictated By: Cm Zamarripa MD Dictated Date/Time: 05/04/21 4:05 pm Reviewed By: Cm Zamarripa MD Signed By: Cm Zamarripa MD Signed Date/Time: 05/04/21 4:05 pm Transcribed By: VANITA Transcribed Date/Time: 05/04/21 4:04 pm * Exam Date Time Procedure Performing Provider Status 05/04/21 2:21 PM Urethrocystography Retrograde Monica Branch; Auth (Verified) Notes: (Urethrocystography Retrograde) Reason For Exam: left cysto stent RESULT: Urethrocystography Retrograde Urethrocystography Retrograde, C-Arm < 1 Hour INDICATION: left cysto stent COMPARISONS: None TECHNIQUE: Fluoroscopy support was provided. There was no radiologist in attendance. Fluoroscopy time: 12.1 seconds Technologist time: 25 minutes Exposure: 4.975 mGy FINDINGS: 4 images were submitted. A left ureteral stent was placed. Please refer to operative note for full details. IMPRESSION: See above. WSN: [id number] Ordering Physician: Rony Briggs Dictated By: Cm Zamarripa MD Dictated Date/Time: 05/04/21 4:05 pm Reviewed By: Cm Zamarripa MD Signed By: Cm Zamarripa MD Signed Date/Time: 05/04/21 4:05 pm Transcribed By: VANITA Transcribed Date/Time: 05/04/21 4:04 pm Vital Signs Most recent to oldest [Reference Range]: 1 2 3 Height 168 cm (05/04/21 12:59 PM) 168 cm (04/25/21 2:17 PM) Weight 105 kg (05/04/21 12:59 PM) 105 kg (04/25/21 2:17 PM) Oxygen Saturation [94-100 %] 98 % (05/04/21 3:00 PM) 100 % (05/04/21 2:45 PM) 100 % (05/04/21 2:30 PM) Pulse Rate [55-90 bpm] 88 bpm (05/04/21 12:59 PM) Body Mass Index [18.5-24.99] 37.2 *>HHI* (05/04/21 12:59 PM) 37.2 *>HHI* (04/25/21 2:17 PM) Blood Pressure [90-138/55-84 mm Hg] 103/72mm Hg (05/04/21 3:30 PM) 111/72mm Hg (05/04/21 3:15 PM) 110/67mm Hg (05/04/21 3:00 PM) Respiratory Rate [16-30 br/min] 18 br/min (05/04/21 3:46 PM) 13 br/min *L* (05/04/21 3:30 PM) 15 br/min *L* (05/04/21 3:15 PM) Temperature [96.8-100.4 DegF] 97.9 DegF (05/04/21 2:15 PM) 97.2 DegF (05/04/21 12:59 PM) Mode of Delivery (Oxygen) Room air (05/04/21 4:30 PM) Room air (05/04/21 3:00 PM) Room air (05/04/21 2:45 PM) Blood pressure sites Arm, left (05/04/21 2:15 PM) Arm, left (05/04/21 12:59 PM) Temperature Route Temporal (05/04/21 2:15 PM) Temporal (05/04/21 12:59 PM) Dry Weight 109 kg (05/04/21 12:59 PM) 105 kg (04/25/21 2:17 PM) Weight Obtained Via Patient/family state d (04/25/21 2:17 PM) Dry Weight Obtained Via Standing scale (05/04/21 12:59 PM) Patient/family stated (04/25/21 2:17 PM) Social History Social History Type Response Smoking Status Former smoker; Other : Quit 3 1/2 years ago; entered on: 02/11/17 Sex Medical Equipment Implanted Date:11/21/20Target Site:Vagina Description Quantity MRI Company Model SYSTEM SLING ADVANTAGE BLUE - [employer]SCI ([id number]) 1 [employer] Unknown [place]:{01}[id number]{[phone] Assigning Authority:FDA
--- OUTSIDE RECORDS SUMMARY | 2022-11-29 14:34 | XMS_ITS | Continuity of Care Document ---
Author Name Unknown Organization [facility] [employer] [facility] Address [address], [address] [place] [address]- Care Team Providers Care Freight Service Inspector Name Role Phone Ivonne Wilkerson DO Primary Care Refugio cordero Encounter [facility] Date(s): 11/13/19 - 11/20/19 [facility] [address], [address]th [place] [address]- Attending Physician: Coral Layton MD Allergies, Adverse Reactions, [...] 2, Maintenance, 02/18/17 10:50:24,Route to Pharmacy Electronically, [id number]... Start Date: 02/18/17 Status: Ordered Gabapentin = [...] adult(Confirmed) Active PTSD (post-traumatic stress disorder)(Confirmed) Active Procedures Procedure Date Related Diagnosis Body Site Status right Shoulder surgery 02/02/18 Co mpleted Social History Social History Type Response Smoking Status Former smoker; Other : Quit 3 1/2 years ago; entered on: 02/11/17 Sex
--- OUTSIDE RECORDS SUMMARY | 2022-11-29 14:34 | XMS_ITS | Continuity of Care Document ---
Author Name Unknown Organization [facility] Address Adult Weight Managem ent [address] [place] [address]- Care Team Providers Care Sand Conditioner Machine Name Role Phone Ivonne Wilkerson DO Primary Care Refugio cordero Encounter [facility] Date(s): 07/09/19 - 08/13/19 [facility] Adult Weight Management [address] [place] [address] [facility] Attending Physician: Not on Staff, Attending MD Referring Physician: Not on Staff, Referring [...] 2, Maintenance, 02/18/17 10:50:24,Route to Pharmacy Electronically, [id number]... Start Date: 02/18/17 Status: Ordered Gabapentin = [...]
--- OUTSIDE RECORDS SUMMARY | 2022-11-29 14:34 | XMS_ITS | Continuity of Care Document ---
Author Name Unknown Organization [facility] Address Adult Weight Managem ent [address] [place] [id number]- Care Team Providers Care Flight Security Specialist Name Role Phone Ivonne Wilkerson DO Primary Care Refugio cordero Encounter [facility] [place](s[place] 07/15/19 - 09/17/19 [facility] Adult Weight Management [address] [place] [id number]- [facility] Attending Physician: Not on Staff, Attending MD Allergies, Adverse Reactions, Alerts Substance Reaction [...] 2, Maintenance, 02/18/17 10:50:24,Route to Pharmacy Electronically, [id number]... Start Date: 02/18/17 Status: Ordered Gabapentin = [...]
--- OUTSIDE RECORDS SUMMARY | 2022-11-29 14:34 | XMS_ITS | Continuity of Care Document ---
Author Name Unknown Organization [facility] Antoniabrooklynn Bardales nLucibels [facility] Address [address], [address] [place] [address]- Care Team Providers Care Food And Beverage Service Manager Name Role Phone CarmensulyIvonne Ellis DO Primary Care Refugio cordero [id number] Date[facility] 08/19/20 - 08/26/20 [facility] [employer] [facility] [address], [address] [place] [address]- Attending Physician: Coral Layton MD Referring Physician: Mary Herrera Allergies, Adverse Reactions, Alerts Substance Reaction Severity Status azithromycin Active penicillins hives Active Pollen asthma, itchy eyes Active Dupixent Active Fasenra Active Medications amitriptyline 150 mg oral tablet [...] 2, Maintenance, 02/18/17 10:50:24,Route to Pharmacy Electronically, [id number]... Start Date: 02/18/17 Status: Ordered Gabapentin = [...]
== END 2022-11-29 12:17 | disposition home or self-care (01) ==
PROVIDERS: Emergency Provider Emergency Medicine; PCP Internal Medicine
DX: M54.2 Cervicalgia (principal); M79.18 Myalgia, other site; M75.81 Other shoulder lesions, right shoulder
CPT/HCPCS: 73030; 96372; 99283; 99284; J1885

== ENCOUNTER 2022-12-10 06:54 | Emergency (ER) | payer MEDICARE, OTHER, SELFPAY ==
[2022-12-10 07:07] VITALS: BP 125/78; PULSE 109; RESP 20; TEMP 37.7; O2SAT 100
[2022-12-10 08:15] VITALS: BP 125/78; PULSE 102; RESP 18; TEMP 37.7; O2SAT 100; BMI 40.3
[2022-12-10 08:30] LABS: IDNOW Serial# 08D9AD1C; Strep A Nucleic Acid Negative (Negative)
--- NOTE | 2022-12-10 08:43 | ED_ITS ---
HPI - URI/Sore Throat General Chief Complaint: Upper Respiratory Symptoms Stated Complaint: sore throat flu symptons Time Seen by Provider: 12/10/22 08:05 Source: patient Mode of arrival: ambulatory Limitations: no limitations History of Present Illness HPI Narrative: 42 yo female with history of asthma presents to the ER for evaluation of 2 days of sore throat, cough and fevers. She states she also has been having diffuse body aches. She states yesterday her cough started bringing up brown phelgm and her cough is keeping her up at night. She ran out of her inhaler. She denies wheezing or SOB. She states her entire chest wall hurts when she coughs. She has no fevers or known sick contacts. MD elicited complaint: fever, cough and sore throat Pertinent past history: asthma Onset (ago): day(s) (2) Consistency: progressively worsening Severity: moderate Description of mucous: other (brown) Able to tolerate fluids by mouth: Yes Exacerbating factors: supine positioning Relieving factors: rest Associated symptoms: fever, chills, myalgias, headache, nasal congestion, sore throat, cough and chest pain Treatments prior to arrival: none Related Data Previous Rx's Medication Instructions Recorded benzonatate 100 mg capsule 100 mg PO TID PRN coughing #20 caps 07/28/20 (Tessalon Perles) loratadine 10 mg tablet (Claritin) 10 mg PO DAILY allergies #10 tabs 07/28/20 prednisone 20 mg tablet 40 mg PO DAILY #10 tabs 07/28/20 azithromycin 250 mg tablet See Rx Instructions PO .COMPLEX #6 08/01/20 tabs acetaminophen 500 mg tablet 500 mg PO Q6H PRN fever or pain 11/29/22 (Tylenol Extra Strength) #14 tabs cyclobenzaprine 5 mg tablet 5 mg PO Q8H PRN pain (scale score 11/29/22 7-10) 5 days #14 tabs lidocaine 5 % topical patch 1 patch topical DAILY PRN pain #30 11/29/22 (Lidoderm) ea naproxen 500 mg tablet 500 mg PO BID PRN pain 10 days #20 11/29/22 tabs albuterol sulfate 90 mcg/actuation 2 puff inhalation Q4-6H PRN 12/10/22 aerosol inhaler shortness of breath or wheezing #8.5 grams amoxicillin 875 mg-potassium 1 tab PO Q12H #14 tabs 12/10/22 clavulanate 125 mg tablet benzonatate 100 mg capsule 100 mg PO TID PRN cough #30 caps 12/10/22 hydrocodone-homatropine 5 mg-1.5 5 ml PO Q4-6H PRN cough #60 mL 12/10/22 mg/5 mL (5 mL) oral syrup (Hycodan) prednisone 20 mg tablet 40 mg PO DAILY #10 tabs 12/10/22 Allergies Allergy/AdvReac Type Severity Reaction Status Date / Time benralizumab [From FASENRA] Allergy Unknown AIRWAY Verified 11/29/22 10:41 DISTRESS dog dander [DOGS] Allergy Unknown ASTHMA Verified 11/29/22 10:41 dupilumab [From DUPIXENT] Allergy Unknown SKIN Verified 11/29/22 10:41 RASH/INFECTION pollen extracts [POLLEN] Allergy Unknown RUNNY NOSE Verified 11/29/22 10:41 azithromycin Allergy Rash Verified 12/10/22 08:21 penicillin Allergy Unknown Rash Uncoded 11/29/22 10:41 Review of Systems Review of Systems: Yes all other systems are reviewed and are negative [facility] Past Medical History Medical History Asthma Fibromyalgia Migraines Social History Social History Alcohol intake: never Patient Tobacco Use Status: Never used Tobacco Advance Directives: No Advance Directives Information Provided: Yes Physical Exam Vital Signs: Vital Signs: Last Vital Signs Temp 99.9 F 12/10/22 08:15 Pulse 102 H 12/10/22 08:15 Resp 18 12/10/22 08:15 BP 125/78 12/10/22 08:15 Pulse Ox 100 12/10/22 08:15 O2 Del Method Room Air 12/10/22 08:15 BMI result Body Mass Index 40.3 Appearance: Alert. Oriented X3. No acute distress. Head: normocephalic, atraumatic. Eyes: Pupils equal, round and reactive to light. ENT: Pharynx with erythema of the posterior oropharynx. No tonsillar swelling or exudate. Uvula midline. Normal TMs bilaterally. Neck: Normal inspection. Neck supple. CVS: Normal heart rate and rhythm. Pulses normal. Respiratory: No respiratory distress. Breath sounds coarse throughout, diminished at bilateral bases, no wheezing or rhonchi Abdomen: Soft and nontender. +BS x4 Skin: Skin warm and dry. Normal skin color. Normal skin turgor. No rashes. Extremities: No lower extremity edema. No joint swelling. Neuro/psych: Oriented X 3. No motor deficit. No sensory deficit. CN II-XII intact. Normal speech and cognition. Medical Decision Making Medical Decision Making [facility] Narrative: 42 yo female presents to the ER for evaluation of 2 days of fever, cough, sore t hroat and body aches. VSS on arrival. Lung sounds are course but not wheezy. No clinical evidence of strep throat or pneumonia on examination. She tested negative for COVID, Flu and Strep. Will treat for acute bronchitis. Brown phlegm common w/ strep pneumo. will cover with augmentin. she is nontoxic appearing, saturating well and not in any respiratory distress. will also give rx for prednisone, antitussives and albuterol inhaler. return precautions discussed. Differential Diagnosis Differential Diagnoses: The differential diagnosis associated with the presentation includes strep, covid, flu, rsv, other viral syndrome, bronchitis, pneumonia, no evidence of peritonsillar abcsess or retropharyngeal abscess Lab Data [facility] Lab Attestation statement: I reviewed the patient's lab results. Labs: Lab Results 12/10/22 12/10/22 12/10/22 Range/Units 08:13 08:13 08:13 COVID-19 (BARBI) Negative (Negative) COVID-19 Clin Com See Note Influenza Type A (GINNY) Negative (Negative) Influenza Type B (GINNY) Negative (Negative) Influenza A & B Note See Note S. pyogenes GrpA GINNY Negative (Negative) External Record Review External record reviewed: Outpatient record, Prior outpatient labs and Prior outpatient radiology Prescription Management I considered prescription management with: Antibiotic and Other (antitussives) Chronic Conditions Patient?s care impacted by: Other (asthma) Critical Care Time Critical Care Time Critical Care Time: No Discharge Plan Discharge Clinical Impression: Bronchitis Patient Disposition: Home, Self-Care Instructions: Acute Bronchitis (ED) Additional Instructions: You tested negative for COVID, Flu, and Strep throat. Take the prescribed antibiotics, steroids, and cough medications as prescribed. Use the inhaler as needed for wheezing and shortness of breath. Rest and drink plenty of fluids. If you develop new or worsening symptoms call 911 or come back to the ER for further evaluation. Prescriptions: New prednisone 20 mg tablet 40 mg PO DAILY Qty: 10 0RF benzonatate 100 mg capsule 100 mg PO TID PRN (Reason: cough) Qty: 30 0RF albuterol sulfate 90 mcg/actuation HFA aerosol inhaler 2 puff inhalation Q4-6H PRN (Reason: shortness of breath or wheezing) Qty: 8.5 0RF hydrocodone-homatropine [Hycodan] 5-1.5 mg/5 mL (5 mL) syrup 5 ml PO Q4-6H PRN (Reason: cough) Qty: 60 0RF Rx Instructions: Partial Fill upon patient request. amoxicillin-pot clavulanate 875-125 mg tablet 1 tab PO Q12H Qty: 14 0RF No Action benzonatate [Tessalon Perles] 100 mg capsule 100 mg PO TID PRN (Reason: coughing) Qty: 20 0RF loratadine [Claritin] 10 mg tablet 10 mg PO DAILY Qty: 10 0RF prednisone 20 mg tablet 40 mg PO DAILY Qty: 10 0RF azithromycin 250 mg tablet See Rx Instructions .ROUTE .COMPLEX Qty: 6 0RF Rx Instructions: take 500 mg today (day 1), then 250 mg for 4 days (days 2-5) lidocaine [Lidoderm] 5 % adhesive patch,medicated 1 patch topical DAILY MDD remove after 12 hours PRN (Reason: pain) Qty: 30 0RF Rx Instructions: leave on most painful area for up to 12 hrs cyclobenzaprine 5 mg tablet 5 mg PO Q8H PRN (Reason: pain (scale score 7-10)) 5 Days Qty: 14 0RF acetaminophen [Tylenol Extra Strength] 500 mg tablet 500 mg PO Q6H PRN (Reason: fever or pain) Qty: 14 0RF naproxen 500 mg tablet 500 mg PO BID PRN (Reason: pain) 10 Days Qty: 20 0RF Referrals: Nasrin Singh MD [Primary Care Provider] - Interventions: ED Discharge Assessment Last Done: 12/10/22 09:12 Discharge Date/Time: 12/10/22 09:16
[2022-12-10 08:46] LABS: COVID-19 Test Negative (Negative); IDNOW Serial# BCCEAD1C
[2022-12-10 08:47] LABS: IDNOW Serial# 9DB6401D; Influenza A Negative (Negative); Influenza B2 Negative (Negative)
== END 2022-12-10 09:16 | disposition home or self-care (01) ==
PROVIDERS: Physician Assistant; Emergency Provider Emergency Medicine; PCP Internal Medicine
DX: J40 Bronchitis, not specified as acute or chronic (principal); Z20.822 Contact with and (suspected) exposure to COVID-19; Z20.828 Contact with and (suspected) exposure to other viral communicable diseases; Z79.899 Other long term (current) drug therapy
CPT/HCPCS: 87502; 87635; 87651; 99282; 99283

== ENCOUNTER 2023-04-15 16:35 | Emergency (ER) | payer MEDICARE, SELFPAY ==
--- NOTE | ~2023-04-15 | CT_ITS ---
EXAMINATION: CT ABDOMEN AND PELVIS WITHOUT CONTRAST CLINICAL INFORMATION: Back pain. Hematuria. COMPARISON: Previous CT of the abdomen and pelvis March 2020 TECHNIQUE: Multidetector volumetric imaging was performed from the superior aspect of the liver through the pubic symphysis. Sagittal and coronal reformatted images were obtained on the technologist's workstation. This CT examination was performed using dose optimization techniques as appropriate, variously including the following: *Automated exposure control *Adjustment of mA and/or kV according to patient size (this includes techniques or standardized protocols for targeted exams where dose is matched to indication/reason for exam; i.e. extremities or head) *Use of iterative reconstruction technique DLP: 914 mGy-cm FINDINGS: LUNG BASES: The visualized lung bases are unremarkable. LIVER, GALLBLADDER, AND BILIARY TREE: The liver is normal in size, shape, and attenuation. No focal hepatic lesion or biliary ductal dilatation is present. The gallbladder is not seen presumably been removed. PANCREAS: Unremarkable. SPLEEN: Unremarkable. ADRENAL GLANDS: Unremarkable. KIDNEYS AND URETERS: The kidneys are normal in size, shape, and attenuation. Small 1 mm stone in the mid left kidney. No other stone. No hydronephrosis, ureteral dilatation or ureteral stone. BLADDER: Unremarkable. GASTROINTESTINAL TRACT: The small and large bowel are unremarkable. The appendix is unremarkable. ABDOMINAL WALL: No significant hernia is appreciated. LYMPH NODES: Normal. VASCULAR: Unremarkable. PELVIC VISCERA: IUD in the uterus. OSSEOUS STRUCTURES: Unremarkable. CT/CT abdomen pelvis wo IV con IMPRESSION: Small nonobstructing left renal stone. Fleischner guidelines were followed.
--- NOTE | ~2023-04-15 | US_ITS ---
EXAMINATION: US PELVIS CLINICAL INFORMATION: Pain status post IUD insertion COMPARISON: None available. TECHNIQUE: Ultrasound of the pelvis is performed using both transabdominal and transvaginal transducers along with Doppler. Transvaginal imaging is performed due to inadequate visualization transabdominally. FINDINGS: Uterus: The uterus is anteverted and measures 8.3 x 4.2 x 3.9 cm. The double wall endometrial thickness is 5 mm. Artifact from the IUD is seen within the endometrial cavity The uterus is smooth in contour and has normal myometrial echogenicity. No visible fibroid. Adnexa: Both ovaries are visualized. There is normal color flow to the adnexa. There is no ovarian torsion. There is no pelvic ascites or fluid collection. Right ovary measures 3.6 x 2.1 x 2.0 cm. Volume 8 mL Left ovary measures 2.3 x 1.6 x 1.8 cm. Volume 3.5 mL US/US pelvic and transvaginal IMPRESSION: IUD seen within the endometrial cavity. Otherwise unremarkable pelvic ultrasound.
[2023-04-15 17:09] VITALS: BP 142/78; PULSE 75; RESP 18; TEMP 36.7; O2SAT 100; BMI 39.2
--- NOTE | 2023-04-15 17:09 | ED_ITS ---
HPI - Abdominal Pain General Chief Complaint: Abdominal Pain Stated Complaint: lower abd pain Time Seen by Provider: 04/15/23 20:16 Source: patient Mode of arrival: ambulatory Limitations: no limitations History of Present Illness HPI narrative: 42 yold female with pmh of endometriosis presents to the ED for lower abdominal cramping since . Patient states she had IUD placed on and since then has had pain. Patient describes lower abdominal pain as cramping and also some back pain. Patient denies any fever, chills, nausea, or vomiting. Related Data Previous Rx's Medication Instructions Recorded benzonatate 100 mg capsule 100 mg PO TID PRN coughing #20 caps 07/28/20 (Tessalon Perles) loratadine 10 mg tablet (Claritin) 10 mg PO DAILY allergies #10 tabs 07/28/20 prednisone 20 mg tablet 40 mg (2 x 20 mg) PO DAILY #10 tabs 07/28/20 azithromycin 250 mg tablet See Rx Instructions PO .COMPLEX #6 08/01/20 tabs acetaminophen 500 mg tablet 500 mg PO Q6H PRN fever or pain 11/29/22 (Tylenol Extra Strength) #14 tabs cyclobenzaprine 5 mg tablet 5 mg PO Q8H PRN pain (scale score 11/29/22 7-10) 5 days #14 tabs lidocaine 5 % topical patch 1 patch topical DAILY PRN pain #30 11/29/22 (Lidoderm) ea naproxen 500 mg tablet 500 mg PO BID PRN pain 10 days #20 11/29/22 tabs albuterol sulfate 90 mcg/actuation 2 puff inhalation Q4-6H PRN 12/10/22 aerosol inhaler shortness of breath or wheezing #8.5 grams benzonatate 100 mg capsule 100 mg PO TID PRN cough #30 caps 12/10/22 doxycycline hyclate 100 mg tablet 100 mg PO BID #14 tabs 12/10/22 hydrocodone-homatropine 5 mg-1.5 5 ml PO Q4-6H PRN cough #60 mL 12/10/22 mg/5 mL (5 mL) oral syrup (Hycodan) prednisone 20 mg tablet 40 mg (2 x 20 mg) PO DAILY #10 tabs 12/10/22 ketorolac 10 mg tablet 10 mg PO QID PRN pain 5 days #20 04/16/23 tabs Allergies Allergy/AdvReac Type Severity Reaction Status Date / Time benralizumab [From FASENRA] Allergy Unknown AIRWAY Verified 11/29/22 10:41 DISTRESS dog dander [DOGS] Allergy Unknown ASTHMA Verified 11/29/22 10:41 dupilumab [From DUPIXENT] Allergy Unknown SKIN Verified 11/29/22 10:41 RASH/INFECTION pollen extracts [POLLEN] Allergy Unknown RUNNY NOSE Verified 11/29/22 10:41 azithromycin Allergy Rash Verified 12/10/22 08:21 penicillin Allergy Unknown Rash Uncoded 11/29/22 10:41 Review of Systems Review of Systems lower abdominal cramping Yes all other systems are reviewed and are negative [facility] Past Medical History Medical History Asthma Fibromyalgia Migraines Social History Social History Alcohol intake: never Patient Tobacco Use Status: Never used Tobacco Smoked in Last 30 Days: No Use of substances other than those prescribed or required for medical reasons: No Advance Directives: No Advance Directives Information Provided: Yes Patient : No Physical Exam ED Vital Signs: Vital Signs - 24 hr 04/15/23 17:09 04/15/23 20:20 04/15/23 22:30 Temperature 98.1 F 98.8 F 98.5 F Pulse Rate 75 72 83 Respiratory Rate 18 17 14 Blood Pressure 142/78 H 114/66 121/65 Pulse Oximetry 100 99 97 Oxygen Delivery Method Room Air Room Air Nasal Cannula BMI result Body Mass Index 39.2 Const General: cooperative, healthy appearing, comfortable, no acute distress, well developed, alert, awake and Physically active Orientation/consciousness: oriented to person, oriented to place, oriented to time and patient oriented x3 HENMT Head: Yes normal to inspection, Yes No palpable skull fracture present, Yes normocephalic, Yes atraumatic and No abrasion Eyes General: appearance normal, both eyes and all related structures Neck Neck: Yes normal visual inspection, Yes full ROM, Yes no lymphadenopathy, Yes no meningeal signs, Yes trachea midline, Yes supple, No anterior neck swelling and No tender Chest Chest palpation & inspection: normal inspection of the chest and normal palpation of entire chest wall Resp Effort & Inspection: normal respiratory effort and able to speak in complete sentences Auscultation: clear to auscultation bilaterally Cardio Jugular venous distension: no JVD Heart sounds: S1 normal heart sound present and S2 normal heart sound present GI Inspection: Yes normal to inspection and No abdominal wall ecchymosis Palpation (GI): Soft to palpation, not firm, Tenderness to palpation present (GI) (lower abdomen), no guarding and not rigid Other: No hemorrhaging from cervix. IUD is seen General: No CVA tenderness and Yes no CVA tenderness External Female Exam: normal external appearance Speculum Exam - Vagina: normal appearance of the vagina Speculum Exam - Cervix: Other cervical findings present (mild vaginal spotting( blood). No profuse bleeding from cervix. ) Back/Spine/Pelvis Back: no CVA tenderness, No CVA tenderness and No back tenderness Skin General skin exam: no rashes or lesions noted, elasticity normal and turgor normal Neuro General: oriented to person, oriented to place, oriented to time, patient oriented x3, gait normal, tone normal, moves all extremities, Normal light touch and pain sensation, no meningeal signs, no focal motor deficits, CN's II-XI intact bilaterally and normal sensation to monofilament Extrem General: Yes normal to inspection and Yes full ROM Psych Appearance: grossly normal, well kempt and not disheveled Course Course Course Narrative: RME - 42 yo female presents to the ER for evaluation of pelvic pain after IUD insertion on 04/11. Has had pain and some spotting since. Pain is worse with sitting and can be severe. Feels like a poking sensation Plan: pelvic U/s to assess for placement Medical Decision Making Medical Decision Making MDM Narrative: 42-year-old female presents ED for lower abdominal cramping/pain since placement of IUD. Patient states low back pain and some spotting. Patient states test was negative before IUD was placed. Patient denies any nausea, vomiting, fever, chills or any blunt trauma. 00:58a,: Pelvic transvaginal ultrasound shows IUD in proper place and negative for signs of any perforation. Patient was sent for abdominal CT scan due to history of kidney stones due to spotting and back pain wanted to make sure there was no chance of kidney stone. Abdominal CT scan negative for ureteral stone but does shows left renal stone. IUD in uterus and negative for Signs of any perforation. Pelvic exam negative for profuse vaginal bleeding. Just mild spotting from the cervix. IUD string seen. CTNG, trich, and BV ordered. Patient preferred to wait for results. Differential Diagnosis Differential Diagnoses: The differential diagnosis associated with the presentation includes (Perforation of abdomen. Perforation of uterus. Kidney stones. UTI. Appendicitis. Diverticulitis.) Lab Data MDM Lab Attestation statement: I reviewed the patient's lab results. 04/15/23 20:42 04/15/23 20:42 Labs: Lab Results 04/15/23 04/16/23 Range/Units 20:42 00:40 WBC 7.5 (4.8-10.8) X10*3/uL RBC 4.46 (4.20-5.50) X10*6/uL Hgb 12.7 (12.0-16.0) g/dl Hct 39.3 (37.0-47.0) % MCV 88.1 (80.0-98.0) fL MCH 28.5 (27.0-33.0) pg MCHC 32.3 (31.0-35.0) g/dl RDW 12.6 (11.0-16.0) % Plt Count 244 (160-400) X10*3/uL MPV 10.4 (9.4-12.3) fL Immature Gran % (Auto) 0.3 (0.0-0.4) % Neut % (Auto) 53.0 (45-73) % Lymph % (Auto) 33.1 (20-40) % [place] % (Auto) 9.2 (2-11) % Eos % (Auto) 4.0 (0-4) % Baso % (Auto) 0.4 (0-2) % Lymph # (Auto) 2.5 (1.2-4.9) X10*3/uL [place] # (Auto) 0.7 (0.1-1.2) X10*3/uL Eos # (Auto) 0.3 (0.0-0.4) X10*3/uL Baso # (Auto) 0.0 (0.0-0.2) X10*3/uL Abs Immat Gran (auto) 0.02 (0.00-0.03) X10*3/uL Absolute Neuts (auto) 4.0 (2.0-8.3) x10*3/uL Absolute Nucleated RBC 0.000 (0.0-0.012) X10*3/uL Nucleated RBC % (auto) 0.0 (0.0-0.2) /100WBC Sodium 141 (135-145) mmol/L Potassium 3.8 (3.3-5.1) mmol/L Chloride 108 (96-108) mmol/L Carbon Dioxide 24 (22-29) mmol/L Anion Gap 13 (12-20) BUN 12 (9-16) mg/dL Creatinine 0.66 (0.5-1.4) mg/dL Estim Creat Clear Calc 136.8 Estimated GFR > 60 Random Glucose 84 (60-115) mg/dL Calcium 9.6 D (8.4-10.2) mg/dL Total Bilirubin 0.3 (0.0-1.0) mg/dL AST 14 (5-31) U/L ALT 12 (0-31) U/L Alkaline Phosphatase 48 (39-117) U/L Total Protein 7.2 (6.5-8.0) g/dL Albumin 4.1 (3.5-5.0) g/dL Urine Color Yellow Urine Appearance Clear Urine pH 7.5 (5.0-9.0) Ur Specific [place] 1.010 (1.005-1.025) Urine Protein Negative (Neg-Trace) mg/dL Urine Glucose (UA) Negative (Negative) mg/dL Urine Ketones Negative (Negative) mg/dL Urine Blood Small (1+) H (Negative) Urine Nitrite Negative (Negative) Ur Leukocyte Esterase Trace H (Negative) Urine RBC 0-2 (0-2) /HPF Urine WBC 0-5 (0-5) /HPF Ur Squamous Epith Cells 3-5 (0-2) /HPF Urine Bacteria None Seen (None Seen) Hyaline Casts 6-10 (0-2) /LPF Urine Test NEGATIVE (NEGATIVE) Chlam trachomat DNA PCR NOT DETECTED (Not Detect.) N.gonorrhoeae DNA (PCR) NOT DETECTED (Not Detect.) Independent Interpretation I performed an independent interpretation of an: Ultrasound and CT Scan Radiology Impression Discussion of test interpretation with radiology: I have reviewed the radiologist's reading. External Record Review External record reviewed: Other (PRior ED visits) Prescription Management I considered prescription management with: Pain Medication Medications Administered Discontinued Medications Generic Name Dose Route Start Last Admin Trade Name Pauloq PRN Reason Stop Dose Admin Acetaminophen 650 mg 04/15/23 20:30 04/15/23 20:38 Acetaminophen 325 Mg Tablet PO 04/15/23 20:31 650 mg ONCE ONE Administration Ketorolac Tromethamine 30 mg 04/15/23 20:30 04/15/23 20:38 Ketorolac Tromethamine 30 Mg/Ml Vial IM 04/15/23 20:31 30 mg ONCE ONE Administration Discharge Plan Discharge Clinical Impression: Abdominal pain, Pelvic pain Patient Disposition: Home, Self-Care Instructions: Abdominal Pain (ED), Pelvic Pain (ED) Additional Instructions: Please follow-up with your OBGYN for re-evaluation. Return to the ED for any worsening abdominal pain, profuse vaginal bleeding, flank pain, fever, chills, nausea, vomiting, or any other concerning symptoms. Your given copy of your ultrasound and CT scan results. Patient received 30mg IM Toradol in the ED. do not take any other NSAIDs with this medication. DO Not take Motrin, naproxen, Aleve, or any other NSAID while taking ketorolac. Prescriptions: New ketorolac 10 mg tablet 10 mg PO QID PRN (Reason: pain) 5 Days Qty: 20 0RF No Action benzonatate [Tessalon Perles] 100 mg capsule 100 mg PO TID PRN (Reason: coughing) Qty: 20 0RF loratadine [Claritin] 10 mg tablet 10 mg PO DAILY Qty: 10 0RF prednisone 20 mg tablet 40 mg PO DAILY Qty: 10 0RF azithromycin 250 mg tablet See Rx Instructions .ROUTE .COMPLEX Qty: 6 0RF Rx Instructions: take 500 mg today (day 1), then 250 mg for 4 days (days 2-5) lidocaine [Lidoderm] 5 % adhesive patch,medicated 1 patch topical DAILY MDD remove after 12 hours PRN (Reason: pain) Qty: 30 0RF Rx Instructions: leave on most painful area for up to 12 hrs cyclobenzaprine 5 mg tablet 5 mg PO Q8H PRN (Reason: pain (scale score 7-10)) 5 Days Qty: 14 0RF acetaminophen [Tylenol Extra Strength] 500 mg tablet 500 mg PO Q6H PRN (Reason: fever or pain) Qty: 14 0RF naproxen 500 mg tablet 500 mg PO BID PRN (Reason: pain) 10 Days Qty: 20 0RF prednisone 20 mg tablet 40 mg PO DAILY Qty: 10 0RF benzonatate 100 mg capsule 100 mg PO TID PRN (Reason: cough) Qty: 30 0RF albuterol sulfate 90 mcg/actuation HFA aerosol inhaler 2 puff inhalation Q4-6H PRN (Reason: shortness of breath or wheezing) Qty: 8.5 0RF hydrocodone-homatropine [Hycodan] 5-1.5 mg/5 mL (5 mL) syrup 5 ml PO Q4-6H PRN (Reason: cough) Qty: 60 0RF Rx Instructions: Partial Fill upon patient request. doxycycline hyclate 100 mg tablet 100 mg PO BID Qty: 14 0RF Stand Alone Forms: Work/School Release Interventions: ED Discharge Assessment Last Done: 04/16/23 01:11 Discharge Date/Time: 04/16/23 01:12 Print Language: Nepali
--- NOTE | 2023-04-15 20:16 | PC.NURSE ---
Pt presents to Er with lower abdominal pain after an IUD insertion on . Pt states she has 9/10 pain, that feels like contractions. Pt stated that pain was intermittent the first few days but is now constant. Pt also states she feels a poke sometimes, and has had spotting since the insertion. This is pt's first IUD insertion. Denies nausea/vomiting or trouble using the restroom. Pt waiting to be seen by provider at this time.
[2023-04-15 20:20] VITALS: BP 114/66; PULSE 72; RESP 17; TEMP 37.1; O2SAT 99
[2023-04-15] MEDS: Acetaminophen 325 MG TABLET 650 MG PO (20:38)
[2023-04-15] MEDS: Ketorolac Tromethamine 30 MG/ML VIAL IM (20:38)
[2023-04-15 20:46] LABS: MANUAL DIFF FLAG NO
[2023-04-15 20:48] LABS: Basophils Percent Auto 0.4 % (0-2); Eosinophils Absolute Auto 0.3 X10*3/uL (0.0-0.4); Hematocrit 39.3 % (37.0-47.0); Hemoglobin 12.7 g/dl (12.0-16.0); Imm Gran Abs Auto 0.02 X10*3/uL (0.00-0.03); Imm Gran Pct Auto 0.3 % (0.0-0.4); Lymphocytes Absolute Auto 2.5 X10*3/uL (1.2-4.9); Lymphocytes Percent Auto 33.1 % (20-40); Mean Corpuscular HGB Conc 32.3 g/dl (31.0-35.0); Mean Corpuscular Hemoglobin 28.5 pg (27.0-33.0); Mean Corpuscular Volume 88.1 fL (80.0-98.0); Mean Platelet Volume 10.4 fL (9.4-12.3); Monocytes Absolute Auto 0.7 X10*3/uL (0.1-1.2); Monocytes Percent Auto 9.2 % (2-11); Platelet Count 244 X10*3/uL (160-400); Red Blood Count 4.46 X10*6/uL (4.20-5.50); Red Cell Distribution Width 12.6 % (11.0-16.0); White Blood Count 7.5 X10*3/uL (4.8-10.8)
[2023-04-15 20:50] LABS: Appearance Urine Clear; Color Urine Yellow; Glucose Urine UA Negative (Negative); Leukocyte Esterase Urine Trace (Negative); Nitrite Urine Negative (Negative); PH 7.5 (5.0-9.0); UMIC TRIGGER UACC YES; Urine Blood Small (1+) (Negative); Urine Ketones Negative (Negative); Urine Protein Negative (Neg-Trace)
[2023-04-15 20:51] LABS: UPreg QC Valid YES; Urine Pregnancy NEGATIVE (NEGATIVE)
[2023-04-15 21:05] LABS: Alanine Aminotransferase 12 U/L (0-31); Albumin Level 4.1 g/dL (3.5-5.0); Alkaline Phosphatase 48 U/L (39-117); Anion Gap 13 (12-20); Aspartate Amino Transferase 14 U/L (5-31); Bilirubin Total 0.3 mg/dL (0.0-1.0); Blood Urea Nitrogen 12 mg/dL (9-16); Calcium 9.6 mg/dL (8.4-10.2); Carbon Dioxide 24 mmol/L (22-29); Chloride 108 mmol/L (96-108); Creatinine Clr Calc Pharmacy 136.8; Estimated Glomerular Filt Rate > 60; Glucose Random 84 mg/dL (60-115); Potassium 3.8 mmol/L (3.3-5.1); Sodium 141 mmol/L (135-145); Total Protein 7.2 g/dL (6.5-8.0)
[2023-04-15 21:11] LABS: Bacteria Urine None Seen (None Seen); RBC Urine 0-2 /HPF (0-2); WBC Urine 0-5 /HPF (0-5)
[2023-04-15 22:30] VITALS: BP 121/65; PULSE 83; RESP 14; TEMP 36.9; O2SAT 97
[2023-04-16 05:15] LABS: CT PCR NOT DETECTED (Not Detect.); NG PCR NOT DETECTED (Not Detect.)
[2023-04-16 13:59] LABS: BV Int Neg Control Negative (Negative); BV Int Pos Control Positive (Positive)
== END 2023-04-16 01:12 | disposition home or self-care (01) ==
PROVIDERS: Physician Assistant; Emergency Provider Emergency Medicine; PCP Internal Medicine
DX: R10.2 Pelvic and perineal pain (principal); M54.50 Low back pain, unspecified; Z20.822 Contact with and (suspected) exposure to COVID-19; Z20.828 Contact with and (suspected) exposure to other viral communicable diseases; Z79.899 Other long term (current) drug therapy
CPT/HCPCS: 0353U; 36415; 74176; 76830; 76856; 80053; 81001; 81025; 85025; 87480; 87510; 87660; 96372; 99284; J1885

== ENCOUNTER 2023-06-11 10:08 | Emergency (ER) | payer MEDICARE, MEDICAID, SELFPAY ==
--- NOTE | ~2023-06-11 | XR_ITS ---
EXAMINATION: XR CHEST 2 VIEW CLINICAL INFORMATION: Chest Tightness COMPARISON: 04/30/2022 TECHNIQUE: PA and lateral views of the chest obtained. FINDINGS: The lungs are clear. There are no pleural effusions. The cardiomediastinal silhouette is normal. XR/XR chest 2V IMPRESSION: No acute cardiopulmonary disease.
--- NOTE | 2023-06-11 10:11 | ECG_ITS ---
Test Reason : dizziness Blood Pressure : / mmHG Vent. Rate : 091 BPM Atrial Rate : 091 BPM P-R Int : 144 ms QRS Dur : 082 ms QT Int : 350 ms P-R-T Axes : 025 026 -02 degrees QTc Int : 430 ms Normal sinus rhythm Nonspecific T wave abnormality Abnormal ECG When compared with ECG of 30-APR-2022 18:51, Nonspecific T wave abnormality now evident in Lateral leads T wave inversion more evident in Inferior leads Referred By: Generic ED Physician Electronically Signed By:MABLE PATRICK MD
[2023-06-11 10:37] VITALS: BP 120/74; PULSE 99; RESP 20; TEMP 36.6; O2SAT 99; BMI 39.2
[2023-06-11 11:15] LABS: MANUAL DIFF FLAG NO
[2023-06-11 11:17] LABS: Basophils Percent Auto 0.3 % (0-2); Eosinophils Percent Auto 0.4 % (0-4); Hematocrit 41.2 % (37.0-47.0); Hemoglobin 13.4 g/dl (12.0-16.0); Imm Gran Abs Auto 0.05 X10*3/uL (0.00-0.03); Imm Gran Pct Auto 0.5 % (0.0-0.4); Lymphocytes Absolute Auto 0.8 X10*3/uL (1.2-4.9); Lymphocytes Percent Auto 7.2 % (20-40); Mean Corpuscular HGB Conc 32.5 g/dl (31.0-35.0); Mean Corpuscular Hemoglobin 29.5 pg (27.0-33.0); Mean Corpuscular Volume 90.5 fL (80.0-98.0); Mean Platelet Volume 10.7 fL (9.4-12.3); Monocytes Absolute Auto 1.2 X10*3/uL (0.1-1.2); Monocytes Percent Auto 11.2 % (2-11); Neutrophils Absolute Auto 8.8 x10*3/uL (2.0-8.3); Neutrophils Percent Auto 80.4 % (45-73); Platelet Count 252 X10*3/uL (160-400); Red Blood Count 4.55 X10*6/uL (4.20-5.50); Red Cell Distribution Width 12.8 % (11.0-16.0); White Blood Count 10.9 X10*3/uL (4.8-10.8)
[2023-06-11 11:29] LABS: COVID-19 Test Positive (Negative); IDNOW Serial# 6674DD1D
[2023-06-11 11:32] LABS: IDNOW Serial# 08D9AD1C; Influenza A Negative (Negative); Influenza B2 Negative (Negative)
[2023-06-11 11:36] LABS: Alanine Aminotransferase 20 U/L (0-31); Albumin Level 4.1 g/dL (3.5-5.0); Alkaline Phosphatase 60 U/L (39-117); Anion Gap 10 (12-20); Aspartate Amino Transferase 16 U/L (5-31); Bilirubin Direct 0.2 mg/dL (0.0-0.5); Bilirubin Total 0.4 mg/dL (0.0-1.0); Blood Urea Nitrogen 10 mg/dL (9-16); Calcium 9.2 mg/dL (8.4-10.2); Carbon Dioxide 26 mmol/L (22-29); Chloride 106 mmol/L (96-108); Estimated Glomerular Filt Rate > 60; Glucose Random 88 mg/dL (60-115); Lipase 20 U/L (8-78); Potassium 4.2 mmol/L (3.3-5.1); Sodium 138 mmol/L (135-145); Total Protein 7.6 g/dL (6.5-8.0)
[2023-06-11 11:43] LABS: Troponin-I High Sensitivity < 2.7 ng/L (<3.5-17.0)
[2023-06-11 14:32] VITALS: BP 115/68; PULSE 98; RESP 18; O2SAT 100
[2023-06-11 14:34] VITALS: BP 129/78; PULSE 92
[2023-06-11 14:35] VITALS: BP 122/77; PULSE 96
[2023-06-11 14:37] VITALS: BP 115/78; PULSE 114
[2023-06-11] MEDS: Acetaminophen 325 MG TABLET 975 MG PO (14:40)
[2023-06-11] MEDS: Ibuprofen 400 MG TABLET PO (14:40)
--- NOTE | 2023-06-11 14:45 | ED_ITS ---
HPI - Syncope General Chief Complaint: Syncope Stated Complaint: Dizziness/Chest tightness Time Seen by Provider: 06/11/23 11:10 Source: patient Mode of arrival: ambulatory History of Present Illness HPI narrative: 42-year-old female with presentation for not feeling well over the past couple of days, sore throat, body aches and description of subjective fevers then today states that while she was sitting down she felt a little unsteady she describes some perioral tingling and attempted to lower herself to the floor and states that she passed out, she woke up in her mom was holding her head. Patient denies hitting her head. Related Data Previous Rx's Medication Instructions Recorded benzonatate 100 mg capsule 100 mg PO TID PRN coughing #20 caps 07/28/20 (Tessalon Perles) loratadine 10 mg tablet (Claritin) 10 mg PO DAILY allergies #10 tabs 07/28/20 prednisone 20 mg tablet 40 mg (2 x 20 mg) PO DAILY #10 tabs 07/28/20 azithromycin 250 mg tablet See Rx Instructions PO .COMPLEX #6 08/01/20 tabs acetaminophen 500 mg tablet 500 mg PO Q6H PRN fever or pain 11/29/22 (Tylenol Extra Strength) #14 tabs cyclobenzaprine 5 mg tablet 5 mg PO Q8H PRN pain (scale score 11/29/22 7-10) 5 days #14 tabs lidocaine 5 % topical patch 1 patch topical DAILY PRN pain #30 11/29/22 (Lidoderm) ea naproxen 500 mg tablet 500 mg PO BID PRN pain 10 days #20 11/29/22 tabs albuterol sulfate 90 mcg/actuation 2 puff inhalation Q4-6H PRN 12/10/22 aerosol inhaler shortness of breath or wheezing #8.5 grams benzonatate 100 mg capsule 100 mg PO TID PRN cough #30 caps 12/10/22 doxycycline hyclate 100 mg tablet 100 mg PO BID #14 tabs 12/10/22 hydrocodone-homatropine 5 mg-1.5 5 ml PO Q4-6H PRN cough #60 mL 12/10/22 mg/5 mL (5 mL) oral syrup (Hycodan) prednisone 20 mg tablet 40 mg (2 x 20 mg) PO DAILY #10 tabs 12/10/22 ketorolac 10 mg tablet 10 mg PO QID PRN pain 5 days #20 04/16/23 tabs Allergies Allergy/AdvReac Type Severity Reaction Status Date / Time benralizumab [From FASENRA] Allergy Unknown AIRWAY Verified 06/11/23 10:41 DISTRESS dog dander [DOGS] Allergy Unknown ASTHMA Verified 06/11/23 10:41 dupilumab [From DUPIXENT] Allergy Unknown SKIN Verified 06/11/23 10:41 RASH/INFECTION pollen extracts [POLLEN] Allergy Unknown RUNNY NOSE Verified 06/11/23 10:41 azithromycin Allergy Rash Verified 06/11/23 10:41 penicillin Allergy Unknown Rash Uncoded 11/29/22 10:41 Review of Systems 2 Review of Systems: Pertinent positives and negatives as stated in [facility] Past Medical History Source: nursing notes reviewed Medical History Migraines Fibromyalgia Asthma Social History Social History Alcohol intake: never Patient Tobacco Use Status: Never used Tobacco Advance Directives: No Advance Directives Information Provided: No Physical Exam 2 Vital Signs: Vital Signs: Last Vital Signs Temp 97.9 F 06/11/23 10:37 Pulse 114 H 06/11/23 14:37 Resp 18 06/11/23 14:32 BP 115/78 06/11/23 14:37 Pulse Ox 100 06/11/23 14:32 O2 Del Method Room Air 06/11/23 14:32 BMI result Body Mass Index 39.2 VITAL SIGNS: Reviewed. GENERAL: Well developed, well nourished, in no acute distress. HEAD: Normocephalic/atraumatic EYES: PERRLA, EOMI EARS: Ext canals without abnormality, TMs non-bulging and non-erythematous NOSE: Nasal congestion OROPHARYNX: no oral lesions noted, posterior pharynx clear and non-erythematous without noted tonsillar enlargement/erythema/exudates NECK: Supple, no adenopathy LUNGS: Normal breath sounds. No adventitious sounds or accessory muscle use. SpO2<100> CARDIOVASCULAR: Regular rate and rhythm without noted murmurs ABDOMEN: Soft, non-tender, non-distended with bowel sounds. MUSCULOSKELETAL: No tenderness, deformities, or effusions noted on gross inspection. EXTREMITIES: No cyanosis, clubbing or edema. SKIN: Inspection of the skin reveals no rashes NEUROLOGIC: Alert and oriented x 4. Strength and sensation to light touch were grossly intact x 4. Medications Administered Discontinued Medications Generic Name Dose Route Start Last Admin Trade Name Unique PRN Reason Stop Dose Admin Acetaminophen 975 mg 06/11/23 14:21 06/11/23 14:40 Acetaminophen 325 Mg Tablet PO 06/11/23 14:22 975 mg ONCE ONE Administration Ibuprofen 400 mg 06/11/23 14:21 06/11/23 14:40 Ibuprofen 400 Mg Tablet PO 06/11/23 14:22 400 mg ONCE ONE Administration Medical Decision Making Medical Decision Making [facility] Narrative: 42-year-old female with history and clinical presentation, DDX: Description sounds like vasovagal syncope in so will evaluate for possible infection, anemia, electrolyte derangements. I reviewed all investigations patient does demonstrate a stress leukocytosis but no anemia or thrombocytopenia. Chemistry indices are grossly within normal limits without evidence of CHAUNCEY or electrolyte/liver enzyme abnormalities, high sensitivity troponin is undetectable. COVID-19 is positive and influenza is negative. Chest x-ray negative for infiltrate and otherwise my interpretation is in agreement with radiology's impression. EKG negative for evidence of STEMI. My interpretation is that patient has been feeling weak and fatigued secondary to COVID-19 positivity and typical viral syndrome, all results were discussed with her at bedside and she was discharged home with instructions. Differential Diagnosis Differential Diagnoses: The differential diagnosis associated with the presentation includes Please see the discussion above Admission/Observation Consideration of admission/observation: Escalation of care including admission/observation considered They please see the discussion above Lab Data [facility] Lab Attestation statement: I reviewed the patient's lab results. Please see the discussion above 06/11/23 11:08 06/11/23 11:08 Labs: Lab Results 06/11/23 Range/Units 11:08 WBC 10.9 H (4.8-10.8) X10*3/uL RBC 4.55 (4.20-5.50) X10*6/uL Hgb 13.4 (12.0-16.0) g/dl Hct 41.2 (37.0-47.0) % MCV 90.5 (80.0-98.0) fL MCH 29.5 (27.0-33.0) pg MCHC 32.5 (31.0-35.0) g/dl RDW 12.8 (11.0-16.0) % Plt Count 252 (160-400) X10*3/uL MPV 10.7 (9.4-12.3) fL Immature Gran % (Auto) 0.5 H (0.0-0.4) % Neut % (Auto) 80.4 H (45-73) % Lymph % (Auto) 7.2 L (20-40) % Burke % (Auto) 11.2 H (2-11) % Eos % (Auto) 0.4 (0-4) % Baso % (Auto) 0.3 (0-2) % Lymph # (Auto) 0.8 L (1.2-4.9) X10*3/uL Burke # (Auto) 1.2 (0.1-1.2) X10*3/uL Eos # (Auto) 0.0 (0.0-0.4) X10*3/uL Baso # (Auto) 0.0 (0.0-0.2) X10*3/uL Abs Immat Gran (auto) 0.05 H (0.00-0.03) X10*3/uL Absolute Neuts (auto) 8.8 H (2.0-8.3) x10*3/uL Absolute Nucleated RBC 0.000 (0.0-0.012) X10*3/uL Nucleated RBC % (auto) 0.0 (0.0-0.2) /100WBC Sodium 138 (135-145) mmol/L Potassium 4.2 (3.3-5.1) mmol/L Chloride 106 (96-108) mmol/L Carbon Dioxide 26 (22-29) mmol/L Anion Gap 10 L (12-20) BUN 10 (9-16) mg/dL Creatinine 0.70 (0.5-1.4) mg/dL Estim Creat Clear Calc 129.0 Estimated GFR > 60 Random Glucose 88 (60-115) mg/dL Calcium 9.2 (8.4-10.2) mg/dL Total Bilirubin 0.4 (0.0-1.0) mg/dL Direct Bilirubin 0.2 (0.0-0.5) mg/dL AST 16 (5-31) U/L ALT 20 (0-31) U/L Alkaline Phosphatase 60 (39-117) U/L Troponin I High Sens < 2.7 (<3.5-17.0) ng/L Total Protein 7.6 (6.5-8.0) g/dL Albumin 4.1 (3.5-5.0) g/dL Lipase 20 (8-78) U/L COVID-19 (BARBI) Positive A (Negative) COVID-19 Clin Com See Note Influenza Type A (GINNY) Negative (Negative) Influenza Type B (GINNY) Negative (Negative) Influenza A & B Note See Note Independent Interpretation I performed an independent interpretation of an: EKG Interpretation: Normal sinus rhythm, HR-91, no STEMI, OH/QRS/QTC is within normal limits. Radiology Impression Discussion of test interpretation with radiology: I have reviewed the radiologist's reading. Radiologist Impression: Please see the discussion above External Record Review External record reviewed: Outpatient record, Prior outpatient labs and Prior outpatient radiology Critical Care Time Critical Care Time Critical Care Time: Yes Total Critical Care Time: 30 Attestation: I personally attest to this time spent taking care of the patient. Discharge Plan Discharge Clinical Impression: Syncope, vasovagal, Viral syndrome, Lab test positive for detection of COVID-19 virus Patient Disposition: Home, Self-Care Instructions: Syncope (ED), Viral Syndrome (ED), COVID-19 (Coronavirus Disease 2019) (ED) Additional Instructions: 1. Recommend [id number] Tylenol/ibuprofen as needed for body aches, temperatures greater than 100.4 and headaches. Continue to drink plenty of fluids. 2. You must remain isolated for a total of 5 days from the onset of symptoms which was 2 days ago. You would then need to follow all implore your/states/Federal guidelines for return to work. 3. Please follow-up with your primary care doctor via telemedicine appointment. Return to the ER for any worsening symptoms. Prescriptions: No Action benzonatate [Tessalon Perles] 100 mg capsule 100 mg PO TID PRN (Reason: coughing) Qty: 20 0RF loratadine [Claritin] 10 mg tablet 10 mg PO DAILY Qty: 10 0RF prednisone 20 mg tablet 40 mg PO DAILY Qty: 10 0RF azithromycin 250 mg tablet See Rx Instructions .ROUTE .COMPLEX Qty: 6 0RF Rx Instructions: take 500 mg today (day 1), then 250 mg for 4 days (days 2-5) lidocaine [Lidoderm] 5 % adhesive patch,medicated 1 patch topical DAILY MDD remove after 12 hours PRN (Reason: pain) Qty: 30 0RF Rx Instructions: leave on most painful area for up to 12 hrs cyclobenzaprine 5 mg tablet 5 mg PO Q8H PRN (Reason: pain (scale score 7-10)) 5 Days Qty: 14 0RF acetaminophen [Tylenol Extra Strength] 500 mg tablet 500 mg PO Q6H PRN (Reason: fever or pain) Qty: 14 0RF naproxen 500 mg tablet 500 mg PO BID PRN (Reason: pain) 10 Days Qty: 20 0RF prednisone 20 mg tablet 40 mg PO DAILY Qty: 10 0RF benzonatate 100 mg capsule 100 mg PO TID PRN (Reason: cough) Qty: 30 0RF albuterol sulfate 90 mcg/actuation HFA aerosol inhaler 2 puff inhalation Q4-6H PRN (Reason: shortness of breath or wheezing) Qty: 8.5 0RF hydrocodone-homatropine [Hycodan] 5-1.5 mg/5 mL (5 mL) syrup 5 ml PO Q4-6H PRN (Reason: cough) Qty: 60 0RF Rx Instructions: Partial Fill upon patient request. doxycycline hyclate 100 mg tablet 100 mg PO BID Qty: 14 0RF ketorolac 10 mg tablet 10 mg PO QID PRN (Reason: pain) 5 Days Qty: 20 0RF Referrals: Nsarin Singh MD [Primary Care Provider] - Stand Alone Forms: Work/School Release
[2023-06-11 15:05] LABS: Appearance Urine Clear; Color Urine Yellow; Glucose Urine UA Negative (Negative); Leukocyte Esterase Urine Trace (Negative); Nitrite Urine Negative (Negative); Specific Gravity - Urine 1.015 (1.005-1.025); UMIC TRIGGER UACC YES; Urine Blood Negative (Negative); Urine Ketones Negative (Negative); Urine Protein Negative (Neg-Trace)
[2023-06-11 15:07] LABS: Bacteria Urine None Seen (None Seen); Hyaline Casts Urine 0-2 /LPF (0-2); Squamous Epithelial Cell Urine 0-2 /HPF (0-2); WBC Urine 0-5 /HPF (0-5)
== END 2023-06-11 15:06 | disposition home or self-care (01) ==
PROVIDERS: Emergency Provider Student in an Organized Health Care Education/Training Program; PCP Internal Medicine
DX: U07.1 COVID-19 (principal); R55 Syncope and collapse
CPT/HCPCS: 36415; 71046; 80048; 80076; 81001; 81003; 83690; 84484; 85025; 87502; 87635; 93005; 99283; 99285

== ENCOUNTER 2025-01-15 22:17 | Emergency (ER) | payer MEDICARE, MEDICAID, SELFPAY ==
--- NOTE | 2025-01-15 22:22 | ECG_ITS ---
Test Reason : chest pain Blood Pressure : */* mmHG Vent. Rate : 78 BPM Atrial Rate : 78 BPM P-R Int : 162 ms QRS Dur : 96 ms QT Int : 406 ms P-R-T Axes : 53 16 19 degrees QTcB Int : 462 ms Normal sinus rhythm Normal ECG When compared with ECG of 11-Jun-2023 10:12, Nonspecific T wave abnormality no longer evident in Lateral leads Referred By: Generic ED Physician Electronically Signed By: MICHELLE BARBER MD
[2025-01-15 22:37] VITALS: BP 156/86; PULSE 79; RESP 18; TEMP 37.2; O2SAT 100; BMI 42.9
[2025-01-15 23:06] LABS: Basophils Percent Auto 0.3 % (0-2); Eosinophils Absolute Auto 0.3 X10*3/uL (0.0-0.4); Eosinophils Percent Auto 5.1 % (0-4); Hematocrit 36.9 % (37.0-47.0); Hemoglobin 12.3 g/dl (12.0-16.0); Imm Gran Abs Auto 0.02 X10*3/uL (0.00-0.03); Imm Gran Pct Auto 0.3 % (0.0-0.4); Lymphocytes Absolute Auto 1.9 X10*3/uL (1.2-4.9); Lymphocytes Percent Auto 27.9 % (20-40); MANUAL DIFF FLAG NO; Mean Corpuscular HGB Conc 33.3 g/dl (31.0-35.0); Mean Corpuscular Hemoglobin 28.9 pg (27.0-33.0); Mean Corpuscular Volume 86.6 fL (80.0-98.0); Mean Platelet Volume 10.3 fL (9.4-12.3); Monocytes Absolute Auto 0.8 X10*3/uL (0.1-1.2); Monocytes Percent Auto 12.2 % (2-11); Neutrophils Absolute Auto 3.7 x10*3/uL (2.0-8.3); Neutrophils Percent Auto 54.2 % (45-73); Platelet Count 239 X10*3/uL (160-400); Red Blood Count 4.26 X10*6/uL (4.20-5.50); White Blood Count 6.7 X10*3/uL (4.8-10.8)
[2025-01-15 23:22] LABS: Alanine Aminotransferase 21 U/L (0-31); Alkaline Phosphatase 51 U/L (39-117); Anion Gap 8 (12-20); Aspartate Amino Transferase 21 U/L (5-31); Bilirubin Total 0.3 mg/dL (0.0-1.0); Blood Urea Nitrogen 10 mg/dL (9-16); Calcium 8.6 mg/dL (8.4-10.2); Carbon Dioxide 25 mmol/L (22-29); Chloride 111 mmol/L (96-108); Estimated Glomerular Filt Rate > 60; Glucose Random 82 mg/dL (60-115); Potassium 3.6 mmol/L (3.3-5.1); Sodium 140 mmol/L (135-145)
[2025-01-15 23:45] LABS: Troponin-I High Sensitivity < 2.7 ng/L (<3.5-17.0)
[2025-01-16 02:43] VITALS: BP 116/75; PULSE 73; RESP 17; O2SAT 100
[2025-01-16 03:15] VITALS: BP 115/76; PULSE 83; RESP 18; TEMP 36.1; O2SAT 96
--- NOTE | 2025-01-16 03:17 | PC.NURSE ---
Resumed care of patient at 0300, she is currently sitting up in bed, breathing even, pt reporting her CP is a 2/10, but has resolved since the episodes she was having before, no longer having any SOB. Pt stated she has had similar episodes, she does have Afib of which she has been taking her medications and has not missed any doses. Pt sees [facility] cardiology, she had an episode of her HR being in the 130s the other day at rest, but no other issues recently. Awaiting repeat trop and provider to see pt at this time, call davila within reach, lights lowered, no apparent stress noted.
[2025-01-16 03:35] LABS: Troponin-I High Sensitivity < 2.7 ng/L (<3.5-17.0)
[2025-01-16 05:39] VITALS: BP 108/65; PULSE 81; RESP 16; TEMP 36.7; O2SAT 98
--- NOTE | 2025-01-16 05:49 | ED_ITS ---
HPI - Chest Pain General Chief Complaint: Chest Pain Stated Complaint: cp radiates to left arm Time Seen by Provider: 01/16/25 05:43 Source: patient Mode of arrival: ambulatory Limitations: no limitations History of Present Illness ED Provider: Dr. Radha Gillis HPI narrative: patient comes to the emergency room complaining of left-sided chest pain. Patient states that she had 3 episodes lasting a few minutes each. Patient states that she was taking a shower. Self-resolved. Patient denies any trauma, no URI symptoms. Patient states that for the last 5 hours, she has not had any chest pain at all. Related Data Previous Rx's ?Medication ?Instructions ?Recorded benzonatate 100 mg capsule 100 mg PO TID PRN coughing #20 caps 07/28/20 (Tessalon Perles) loratadine 10 mg tablet (Claritin) 10 mg PO DAILY allergies #10 tabs 07/28/20 prednisone 20 mg tablet 40 mg (2 x 20 mg) PO DAILY #10 tabs 07/28/20 azithromycin 250 mg tablet See Rx Instructions PO .COMPLEX #6 08/01/20 tabs acetaminophen 500 mg tablet 500 mg PO Q6H PRN fever or pain 11/29/22 (Tylenol Extra Strength) #14 tabs cyclobenzaprine 5 mg tablet 5 mg PO Q8H PRN pain (scale score 11/29/22 7-10) 5 days #14 tabs lidocaine 5 % topical patch 1 patch topical DAILY PRN pain #30 11/29/22 (Lidoderm) ea naproxen 500 mg tablet 500 mg PO BID PRN pain 10 days #20 11/29/22 tabs albuterol sulfate 90 mcg/actuation 2 puff inhalation Q4-6H PRN 12/10/22 aerosol inhaler shortness of breath or wheezing #8.5 grams benzonatate 100 mg capsule 100 mg PO TID PRN cough #30 caps 12/10/22 doxycycline hyclate 100 mg tablet 100 mg PO BID #14 tabs 12/10/22 hydrocodone-homatropine 5 mg-1.5 5 ml PO Q4-6H PRN cough #60 mL 12/10/22 mg/5 mL (5 mL) oral solution (Hycodan) prednisone 20 mg tablet 40 mg (2 x 20 mg) PO DAILY #10 tabs 05/08/23 ketorolac 10 mg tablet 10 mg PO QID PRN pain 5 days #20 04/16/23 tabs Allergies Allergy/AdvReac Type Severity Reaction Status Date / Time benralizumab [From FASENRA] Allergy Unknown AIRWAY Verified 01/15/25 22:37 DISTRESS dog dander [DOGS] Allergy Unknown ASTHMA Verified 01/15/25 22:37 dupilumab [From DUPIXENT] Allergy Unknown SKIN Verified 01/15/25 22:37 RASH/INFECTION pollen extracts [POLLEN] Allergy Unknown RUNNY NOSE Verified 01/15/25 22:37 azithromycin Allergy Rash Verified 01/15/25 22:37 penicillin Allergy Unknown Rash Uncoded 01/15/25 22:37 Review of Systems 2 Review of Systems: Constitutional : No Weight loss, No Fever, No Chills, No Night Sweats, No Fatigue, No Malaise ENT/Mouth : No Hearing loss, No Ear Pain, No Nasal Congestion, No Sinus Pain, No Hoarseness, No sore throat, No Rhinorrhea, No Swallowing Difficulty Eyes: No Eye Pain, No Swelling, No Redness, No Foreign Body, No Discharge, No Vision Changes Cardiovascular : Complaining of chest pain radiating towards the left arm for a few minutes that self-resolved, at least 5 hours ago, No SOB, No Dyspnea on Exertion, No Orthopnea, No Edema, No Palpitations Respiratory : No Cough, No Sputum, No Wheezing, No Smoke Exposure, No Dyspnea Gastrointestinal : No Nausea, No Vomiting, No Diarrhea, No Constipation, No abdominal Pain, No Hematochezia, No Melena Genitourinary : no irregular bleeding, No Dysuria, No Urinary Frequency, No Hematuria, No Urinary Incontinence, No Urgency, No Flank Pain, No Urinary Flow Changes, No Hesitancy Musculoskeletal : No joint pain, No Myalgias, No Joint Swelling Skin : No Skin Lesions, No rash Neuro : No Weakness, No Numbness, No Paresthesias, No Loss of Consciousness, No Dizziness, No Headache Psych : No Anxiety/Panic, No Depression, No SI/HI/AH/VH, No Social Issues, Heme/Lymph: No Bruising, No Bleeding,No Lymphadenopathy Endocrine : No Polyuria, No Polydipsia, No Temperature Intolerance PMFSH Past Medical History Medical History Migraines Fibromyalgia Asthma Social History Social History Alcohol intake: never Patient Tobacco Use Status: Never used Tobacco Advance Directives: No Advance Directives Information Provided: No Physical Exam 2 Vital Signs: Vital Signs: Last Vital Signs Temp 98.0 F 01/16/25 05:39 Pulse 81 01/16/25 05:39 Resp 16 01/16/25 05:39 BP 108/65 01/16/25 05:39 Pulse Ox 98 01/16/25 05:39 O2 Del Method Room Air 01/16/25 05:39 BMI result Body Mass Index 42.9 Const: Other: Appearance: Alert. Oriented X3. No acute distress. Eyes: Pupils equal, round and reactive to light. ENT: Pharynx normal. Neck: Normal inspection. Neck supple. No lymph nodes noted. No crepitus CVS: Normal heart rate and rhythm. Pulses normal. Normal S1 and S2 Respiratory: No respiratory distress. Breath sounds normal. No Wheezing. No rales Abdomen: Soft and nontender. No rigidity. No distention. Skin: Skin warm and dry. Normal skin color. Normal skin turgor. Extremities: No lower extremity edema. No Lacerations. No Rash, on patient's right hand, she has a splint Neuro: Oriented X 3. No motor deficit. No sensory deficit. Moving all extremities. No slurred speech. CN 2 through 12 grossly intact Psych: calm, cooperative, normal affect Medical Decision Making Medical Decision Making MDM Narrative: my interpretation of EKG: Normal sinus rhythm, heart rate 78, no ST segment depression or elevation, no T-wave inversion, QTC 462 my interpretation of labs: No significant abnormality in patient's hematology chemistry, troponin x2 negative patient is asymptomatic all of patient's vitals are stable Differential Diagnosis Differential Diagnoses: The differential diagnosis associated with the presentation includes ( ACS, AFib, a flutter, anxiety, fibromyalgia) Admission/Observation Consideration of admission/observation: Escalation of care including admission/observation considered ( given patient's past medical history and presentation, observation was considered. At this time, patient is asymptomatic) Lab Data [facility] Lab Attestation statement: I reviewed the patient's lab results. 01/15/25 23:00 01/15/25 23:00 Labs: Lab Results 01/15/25 01/16/25 Range/Units 23:00 02:55 WBC 6.7 (4.8-10.8) X10*3/uL RBC 4.26 (4.20-5.50) X10*6/uL Hgb 12.3 (12.0-16.0) g/dl Hct 36.9 L (37.0-47.0) % MCV 86.6 (80.0-98.0) fL MCH 28.9 (27.0-33.0) pg MCHC 33.3 (31.0-35.0) g/dl RDW 13.0 (11.0-16.0) % Plt Count 239 (160-400) X10*3/uL MPV 10.3 (9.4-12.3) fL Immature Gran % (Auto) 0.3 (0.0-0.4) % Neut % (Auto) 54.2 (45-73) % Lymph % (Auto) 27.9 (20-40) % [place] % (Auto) 12.2 H (2-11) % Eos % (Auto) 5.1 H (0-4) % Baso % (Auto) 0.3 (0-2) % Lymph # (Auto) 1.9 (1.2-4.9) X10*3/uL [place] # (Auto) 0.8 (0.1-1.2) X10*3/uL Eos # (Auto) 0.3 (0.0-0.4) X10*3/uL Baso # (Auto) 0.0 (0.0-0.2) X10*3/uL Abs Immat Gran (auto) 0.02 (0.00-0.03) X10*3/uL Absolute Neuts (auto) 3.7 (2.0-8.3) x10*3/uL Absolute Nucleated RBC 0.000 (0.0-0.012) X10*3/uL Nucleated RBC % (auto) 0.0 (0.0-0.2) /100WBC Sodium 140 (135-145) mmol/L Potassium 3.6 (3.3-5.1) mmol/L Chloride 111 H (96-108) mmol/L Carbon Dioxide 25 (22-29) mmol/L Anion Gap 8 L (12-20) BUN 10 (9-16) mg/dL Creatinine 0.75 (0.5-1.4) mg/dL Estim Creat Clear Calc 124.0 Estimated GFR > 60 Random Glucose 82 (60-115) mg/dL Calcium 8.6 D (8.4-10.2) mg/dL Total Bilirubin 0.3 (0.0-1.0) mg/dL AST 21 (5-31) U/L ALT 21 (0-31) U/L Alkaline Phosphatase 51 (39-117) U/L Troponin I High Sens < 2.7 < 2.7 (<3.5-17.0) ng/L Total Protein 7.0 (6.5-8.0) g/dL Albumin 4.0 (3.5-5.0) g/dL Independent Interpretation I performed an independent interpretation of an: EKG Critical Care Time Critical Care Time Critical Care Time: Yes Total Critical Care Time: 35 Attestation: I have personally provided critical care time. Time includes review of lab data, radiology results, discussion with consultants, and monitoring for potential decompensation. Intervention performed as documented. Discharge Plan Discharge Clinical Impression: Atypical chest pain Patient Disposition: Home, Self-Care Instructions: Chest Pain (ED) Additional Instructions: Please follow-up with your primary care physician tomorrow. If you have any worsening or new symptoms, please return to the emergency room or call 911 Prescriptions: No Action benzonatate [Tessalon Perles] 100 mg capsule 100 mg PO TID PRN (Reason: coughing) Qty: 20 0RF loratadine [Claritin] 10 mg tablet 10 mg PO DAILY Qty: 10 0RF prednisone 20 mg tablet 40 mg PO DAILY Qty: 10 0RF azithromycin 250 mg tablet See Rx Instructions .ROUTE .COMPLEX Qty: 6 0RF Rx Instructions: take 500 mg today (day 1), then 250 mg for 4 days (days 2-5) lidocaine [Lidoderm] 5 % adhesive patch,medicated 1 patch topical DAILY MDD remove after 12 hours PRN (Reason: pain) Qty: 30 0RF Rx Instructions: leave on most painful area for up to 12 hrs cyclobenzaprine 5 mg tablet 5 mg PO Q8H PRN (Reason: pain (scale score 7-10)) 5 Days Qty: 14 0RF acetaminophen [Tylenol Extra Strength] 500 mg tablet 500 mg PO Q6H PRN (Reason: fever or pain) Qty: 14 0RF naproxen 500 mg tablet 500 mg PO BID PRN (Reason: pain) 10 Days Qty: 20 0RF prednisone 20 mg tablet 40 mg PO DAILY Qty: 10 0RF benzonatate 100 mg capsule 100 mg PO TID PRN (Reason: cough) Qty: 30 0RF albuterol sulfate 90 mcg/actuation HFA aerosol inhaler 2 puff inhalation Q4-6H PRN (Reason: shortness of breath or wheezing) Qty: 8.5 0RF hydrocodone-homatropine [Hycodan] 5-1.5 mg/5 mL (5 mL) syrup 5 ml PO Q4-6H PRN (Reason: cough) Qty: 60 0RF Rx Instructions: Partial Fill upon patient request. doxycycline hyclate 100 mg tablet 100 mg PO BID Qty: 14 0RF ketorolac 10 mg tablet 10 mg PO QID PRN (Reason: pain) 5 Days Qty: 20 0RF Print Language: Yi
[2025-01-16 05:57] VITALS: BP 111/66; PULSE 83; RESP 18; TEMP 36.6; O2SAT 98
== END 2025-01-16 05:58 | disposition home or self-care (01) ==
PROVIDERS: Emergency Provider Emergency Medicine; PCP Internal Medicine
DX: R07.89 Other chest pain (principal)
CPT/HCPCS: 36415; 80053; 84484; 85025; 93005; 99283; 99285

== ENCOUNTER → 2025-01-15 22:22 | Outpatient (BNV) | payer MEDICARE, MEDICAID, SELFPAY | PROVIDERS: Emergency Provider Emergency Medicine; PCP Internal Medicine; Visit Provider Internal Medicine Cardiovascular Disease | DX: R07.9 Chest pain, unspecified (principal) | CPT/HCPCS: 93010 ==

== ENCOUNTER 2025-03-25 10:45 | Emergency (ER) | payer MEDICARE, SELFPAY ==
[2025-03-25 10:47] VITALS: BP 149/72; PULSE 77; RESP 16; TEMP 36.3; O2SAT 98; BMI 41.9
[2025-03-25 11:12] LABS: IDNOW Serial# 55D5AD1C; Strep A Nucleic Acid Negative (Negative)
--- NOTE | 2025-03-25 11:25 | ED_ITS ---
HPI - General Adult General Chief complaint: Headache Stated complaint: sore throat Time Seen by Provider: 03/25/25 11:14 Source: patient Mode of arrival: ambulatory Limitations: no limitations History of Present Illness ED Provider: HPI narrative: 44-year-old female presenting with stuffy nose, sore throat, has a history of migraines complaining of the headache, she states when she woke up this morning she felt slightly lightheaded, no fevers or chills no nausea no vomiting. No abdominal pain, no dysuria, no rashes. Related Data Previous Rx's ?Medication ?Instructions ?Recorded benzonatate 100 mg capsule 100 mg PO TID PRN coughing #20 caps 07/28/20 (Tessalon Perles) loratadine 10 mg tablet (Claritin) 10 mg PO DAILY trina rgies #10 tabs 07/28/20 prednisone 20 mg tablet 40 mg (2 x 20 mg) PO DAILY # 10 tabs 07/28/20 azithromycin 250 mg tablet See Rx Instructions PO .COM PLEX #6 08/01/20 tabs acetaminophen 500 mg tablet 500 mg PO Q6H PRN fever or pain 11/29/22 (Tylenol Extra Strength) #14 tabs cyclobenzaprine 5 mg tablet 5 mg PO Q8H PRN pain (scal e score 11/29/22 7-10) 5 days #14 tabs lidocaine 5 % topical patch 1 patch topical DAILY PRN pain #30 11/29/22 (Lidoderm) ea naproxen 500 mg tablet 500 mg PO BID PRN pain 10 da ys #20 11/29/22 tabs albuterol sulfate 90 mcg/actuation 2 puff inhalation Q 4-6H PRN 12/10/22 aerosol inhaler shortness of breath or wheez ing #8.5 grams benzonatate 100 mg capsule 100 mg PO TID PRN cough #30 caps 12/10/22 doxycycline hyclate 100 mg tablet 100 mg PO BID #14 ta bs 12/10/22 hydrocodone-homatropine 5 mg-1.5 5 ml PO Q4-6H PRN cou gh #60 mL 12/10/22 mg/5 mL (5 mL) oral solution (Hycodan) prednisone 20 mg tablet 40 mg (2 x 20 mg) PO DAILY # 10 tabs 12/10/22 ketorolac 10 mg tablet 10 mg PO QID PRN pain 5 days #20 04/16/23 tabs Allergies Allergy/AdvReac Type Severity Reaction Status Date / Time benralizumab (From FASENRA) Allergy Unknown AIRWAY Verified 03/25/25 10:47 DISTRESS dog dander (DOGS) Allergy Unknown ASTHMA Verified 03/25/25 10:47 dupilumab (From DUPIXENT) Allergy Unknown SKIN Verified 03/25/25 10:47 RASH/INFECTION pollen extracts (POLLEN) Allergy Unknown RUNNY NOSE Verified 03/25/25 10:47 azithromycin Allergy Rash Verified 03/25/25 10:47 penicillin Allergy Unknown Rash Uncoded 01/15/25 22:37 Review of Systems Constitutional: Constitutional: Reports as per [facility] Past Medical History Medical History Migraines Fibromyalgia Asthma Social History Social History Alcohol intake: never Patient Tobacco Use Status: Never used Tobacco Smoked in Last 30 Days: No Use of substances other than those prescribed or required for medical reasons: No Advance Directives: No Advance Directives Information Provided: Yes Do you have a plan to hurt others: No Plan Physical Exam ED Vital Signs: Vital Signs - 24 hr 03/25/25 10:47 03/25/25 11:36 03/25/25 11:38 Temperature 97.3 F Pulse Rate 77 86 Respiratory Rate 16 18 Blood Pressure 149/72 H 141/79 H Pulse Oximetry 98 94 100 Oxygen Delivery Method Room Air Room Air 03/25/25 13:05 Temperature 97.3 F Pulse Rate 77 Respiratory Rate 16 Blood Pressure 141/79 H Pulse Oximetry 100 Oxygen Delivery Method Room Air BMI result Body Mass Index 41.9 Const Other: * Gen: ?Overall well-appearing patient * HEENT: Some posterior pharynx erythema, no tonsillar exudates, uvula midline, left ear external ear canal is somewhat irritated, but no loss of markings * Neck: No tenderness * CV: RRR, no obvious murmurs appreciated * Resp: ?No wheezing rales rhonchi no stridor moving air well * Abd: ?Bowel sounds are present, no tenderness no rebound no rigidity * MSK: FROM, strength 5/5 all extremities * Skin: Warm, dry, intact, * Neuro: ?Alert and oriented x3, moving upper and lower extremities symmetrically, no obvious facial asymmetry noted Medications Administered Discontinued Medications Generic Name Dose Route Start Last Admin Trade Name Unique PRN Reason Stop Dose Admin Acetaminophen/Butalbital/Caffeine 1 tab 03/25/25 11:23 03/25/25 11:42 Butalb/Acetamin/Caff 50/325/40 Tablet PO 03/25/25 11:24 1 tab ONCE ONE Administration Dexamethasone 10 mg 03/25/25 11:23 03/25/25 11:42 Dexamethasone 2 Mg Tablet PO 03/25/25 11:24 10 mg ONCE ONE Administration Ketorolac Tromethamine 15 mg 03/25/25 11:23 03/25/25 11:43 Ketorolac Tromethamine 15 Mg/Ml Vial IM 03/25/25 11:24 15 mg ONCE ONE Administration Medical Decision Making Medical Decision Making MDM Narrative: Overall well-appearing woman, she does have history of migraines but nothing to suspect significant infectious etiology such as encephalitis or meningitis requiring further workup such as blood work or LP, her ENT exam unremarkable with some evidence for what likely a viral infection, she did have a viral swab done, no indication for chest x-ray she has no wheezing, no rhonchi or anything else to suspect underlying pneumonia The rest of the examination including abdominal exam is benign, I will treat her symptomatically and anticipate discharge Differential Diagnosis Differential Diagnoses: The differential diagnosis associated with the presentation includes (Seasonal allergies, sinusitis, pharyngitis, pneumonia, migraine, meningitis, encephalitis) Admission/Observation 2022 Emergency Medicine Coding Guide from [facility] on 03/25/2025 All calculations should be rechecked by clinician prior to use RESULT SUMMARY: 3 Estimated Level of Service Problems: Low (3) Risk: Moderate (4) Data: Minimal (2) NARRATIVE MDM: This patient's problem complexity is Low as patient: has =1 acute, uncomplicated illness(es)/injuries. This patient's risk is Moderate due to: overall presentation requiring evaluation for a potentially Moderate-risk process. This patient's data complexity is Minimal. INPUTS: Number and Complexity ?> 10 = 3: acute uncomplicated illness/injury (j) Risk level ?> 3 = Moderate Tests ordered ?> 1 = 1 Tests results reviewed (excluding labs) ?> 0 = 0 Prior external notes reviewed ?> 0 = 0 Assessment requiring and independent historian ?> 0 = No Independent interpretation of tests ?> 0 = No Discussed management/test interpretation w/external professional ?> 0 = No Lab Data Labs: Lab Results 03/25/25 Range/Units 10:56 Influenza Type A (PCR) NEGATIVE (Negative) Influenza Type B (PCR) NEGATIVE (Negative) RSV RNA Qual (PCR) NEGATIVE (Negative) SARS-CoV-2 RNA (RT-PCR) NEGATIVE (Negative) S. pyogenes GrpA GINNY Negative (Negative) Tests considered The following testing was considered but not selected: Chest x-ray Prescription Management I considered prescription management with: Antiviral and Antibiotic Discharge Plan Discharge Clinical Impression: Migraine, Acute viral syndrome Patient Disposition: Home, Self-Care Instructions: Migraine Headache (ED), Viral Syndrome (ED) Additional Instructions: Do you have not had any fevers, your blood work has been reassuring, your physical examination is likely consistent with a viral syndrome, we do not test for all the viruses but we did test her for some of the common viruses including COVID and that was negative, as well as a throat swab, you can continue taking Tylenol Motrin stay well hydrated, I did give you a medication for headache in the emergency department. Follow up with the PCP worsening issues concerns come back to the ER. Prescriptions: No Action benzonatate [Tessalon Perles] 100 mg capsule 100 mg PO TID PRN (Reason: coughing) Qty: 20 0RF loratadine [Claritin] 10 mg tablet 10 mg PO DAILY Qty: 10 0RF prednisone 20 mg tablet 40 mg PO DAILY Qty: 10 0RF azithromycin 250 mg tablet See Rx Instructions .ROUTE .COMPLEX Qty: 6 0RF Rx Instructions: take 500 mg today (day 1), then 250 mg for 4 days (days 2-5) lidocaine [Lidoderm] 5 % adhesive patch,medicated 1 patch topical DAILY MDD remove after 12 hours PRN (Reason: pain) Qty: 30 0RF Rx Instructions: leave on most painful area for up to 12 hrs cyclobenzaprine 5 mg tablet 5 mg PO Q8H PRN (Reason: pain (scale score 7-10)) 5 Days Qty: 14 0RF acetaminophen [Tylenol Extra Strength] 500 mg tablet 500 mg PO Q6H PRN (Reason: fever or pain) Qty: 14 0RF naproxen 500 mg tablet 500 mg PO BID PRN (Reason: pain) 10 Days Qty: 20 0RF prednisone 20 mg tablet 40 mg PO DAILY Qty: 10 0RF benzonatate 100 mg capsule 100 mg PO TID PRN (Reason: cough) Qty: 30 0RF albuterol sulfate 90 mcg/actuation HFA aerosol inhaler 2 puff inhalation Q4-6H PRN (Reason: shortness of breath or wheezing) Qty: 8.5 0RF hydrocodone-homatropine [Hycodan] 5-1.5 mg/5 mL (5 mL) syrup 5 ml PO Q4-6H PRN (Reason: cough) Qty: 60 0RF Rx Instructions: Partial Fill upon patient request. doxycycline hyclate 100 mg tablet 100 mg PO BID Qty: 14 0RF ketorolac 10 mg tablet 10 mg PO QID PRN (Reason: pain) 5 Days Qty: 20 0RF Stand Alone Forms: Work/School Release Interventions: ED Discharge Assessment Last Done: 03/25/25 13:05 Discharge Date/Time: 03/25/25 13:08 Print Language: Samoan
[2025-03-25 11:36] VITALS: BP 141/79; PULSE 86; RESP 18; O2SAT 94
[2025-03-25 11:38] VITALS: O2SAT 100
--- NOTE | 2025-03-25 11:38 | PC.NURSE ---
Pt roomed changed and placed on 1/ monitor- C/O SUÁREZ and URI sx. NAD no other complaints VSS
[2025-03-25] MEDS: Butalb/Acetamin/Caff 50/325/40 TABLET 1 TAB PO (11:42)
[2025-03-25 12:00] LABS: Resp Syncy Virus RNA Qual PCR NEGATIVE (Negative); SARS COV2 PCR INHOUSE NEGATIVE (Negative)
[2025-03-25 13:05] VITALS: BP 141/79; PULSE 77; RESP 16; TEMP 36.3; O2SAT 100
== END 2025-03-25 13:08 | disposition home or self-care (01) ==
PROVIDERS: Emergency Provider Emergency Medicine; PCP Internal Medicine
DX: B34.9 Viral infection, unspecified (principal); J02.9 Acute pharyngitis, unspecified; R51.9 Headache, unspecified; Z03.818 Encounter for observation for suspected exposure to other biological agents ruled out
CPT/HCPCS: 87637; 87651; 96372; 99284; J1885; J8540

== ENCOUNTER 2025-04-01 16:51 | Emergency (ER) | payer MEDICARE, SELFPAY ==
--- NOTE | ~2025-04-01 | XR_ITS ---
CLINICAL HISTORY: CP 2 view chest x-ray Comparison: CR/SR - XR CHEST 2 VIEWS - 06/11/23 11:15 EST Findings: Normal size heart. No consolidation, pleural effusion or pneumothorax. No acute fracture. Stable surgical clips on left side of the neck IMPRESSION: 1. No acute findings. This document has been electronically signed by: Edyta Dey MD on 04/01/2025 18:33:33
--- NOTE | 2025-04-01 16:52 | ECG_ITS ---
Test Reason : CP Blood Pressure : */* mmHG Vent. Rate : 64 BPM Atrial Rate : 64 BPM P-R Int : 150 ms QRS Dur : 92 ms QT Int : 414 ms P-R-T Axes : 14 -1 -13 degrees QTcB Int : 427 ms Normal sinus rhythm with sinus arrhythmia cannot exclude old anterior infarct, but could be related to body habitus Abnormal ECG When compared with ECG of 15-Jan-2025 22:26, T wave inversion now evident in Anterior leads Referred By: Melina Barboza Electronically Signed By: RODRIGUEZ GHOTRA
[2025-04-01 17:25] VITALS: BP 153/87; PULSE 76; RESP 18; TEMP 36.7; O2SAT 98; BMI 42.7
--- NOTE | 2025-04-01 17:25 | ED_ITS ---
HPI - Chest Pain General Chief Complaint: Arrhythmia/Palpitations Stated Complaint: CP Time Seen by Provider: 04/01/25 21:23 History of Present Illness ED Provider: Omar SHORE narrative: The patient is a 44-year-old woman with a history of paroxysmal atrial fibrillation who was maintained on metoprolol and flecainide. She is not on anticoagulation. The patient has been having a sense of congestion in her nose and ears and throat recently. She thought this was probably related to seasonal allergies. Yesterday evening she took a Benadryl. However she then read that this could have a poor interaction with her cardiac medications so she did not take her metoprolol and flecainide. At around 21:30 yesterday, around the time she was getting ready to go to bed, she developed a crushing chest pain that was associated with shortness of breath. It went away after half an hour and she then fell asleep. This morning she had some palpitations but no recurrence of chest pain. Today she received a call from her PCP office. She had contacted the office because of her congestion symptoms. She spoke to the nurse on the phone and described the episode of chest pain last night and was advised to come to the emergency room. She therefore came to the emergency room after work today. She has had no chest pain today. No pain with breathing. No pain or swelling in her legs. No fever, sweats, chills. No cough or sputum. The patient says that she has had chest pain and shortness of breath similar to the episode she had last night when she has had atrial fibrillation. Related Data Previous Rx's ?Medication ?Instructions ?Recorded benzonatate 100 mg capsule 100 mg PO TID PRN coughing #20 caps 07/28/20 (Tessalon Perles) loratadine 10 mg tablet (Claritin) 10 mg PO DAILY trina rgies #10 tabs 07/28/20 prednisone 20 mg tablet 40 mg (2 x 20 mg) PO DAILY # 10 tabs 07/28/20 azithromycin 250 mg tablet See Rx Instructions PO .COM PLEX #6 08/01/20 tabs acetaminophen 500 mg tablet 500 mg PO Q6H PRN fever or pain 11/29/22 (Tylenol Extra Strength) #14 tabs cyclobenzaprine 5 mg tablet 5 mg PO Q8H PRN pain (scal e score 11/29/22 7-10) 5 days #14 tabs lidocaine 5 % topical patch 1 patch topical DAILY PRN pain #30 11/29/22 (Lidoderm) ea naproxen 500 mg tablet 500 mg PO BID PRN pain 10 da ys #20 11/29/22 tabs albuterol sulfate 90 mcg/actuation 2 puff inhalation Q 4-6H PRN 12/10/22 aerosol inhaler shortness of breath or wheez ing #8.5 grams benzonatate 100 mg capsule 100 mg PO TID PRN cough #30 caps 12/10/22 doxycycline hyclate 100 mg tablet 100 mg PO BID #14 ta bs 12/10/22 hydrocodone-homatropine 5 mg-1.5 5 ml PO Q4-6H PRN cou gh #60 mL 12/10/22 mg/5 mL (5 mL) oral solution (Hycodan) prednisone 20 mg tablet 40 mg (2 x 20 mg) PO DAILY # 10 tabs 12/10/22 ketorolac 10 mg tablet 10 mg PO QID PRN pain 5 days #20 04/16/23 tabs Allergies Allergy/AdvReac Type Severity Reaction Status Date / Time benralizumab (From FASENRA) Allergy Unknown AIRWAY Verified 04/01/25 17:28 DISTRESS dog dander (DOGS) Allergy Unknown ASTHMA Verified 04/01/25 17:28 dupilumab (From DUPIXENT) Allergy Unknown SKIN Verified 04/01/25 17:28 RASH/INFECTION pollen extracts (POLLEN) Allergy Unknown RUNNY NOSE Verified 04/01/25 17:28 azithromycin Allergy Rash Verified 04/01/25 17:28 penicillin Allergy Unknown Rash Uncoded 01/15/25 22:37 Review of Systems 2 Review of Systems: Yes all other systems are reviewed and are negative PENDING SALE TO [facility] Past Medical History Medical History Migraines Fibromyalgia Asthma Social History Social History Unable to assess alcohol history related to: Unknown Alcohol intake: never Patient Tobacco Use Status: Never used Tobacco Smoked in Last 30 Days: No Use of substances other than those prescribed or required for medical reasons: No Advance Directives: No Advance Directives Information Provided: Yes Patient : No Physical Exam 2 Vital Signs: Vital Signs: Last Vital Signs Temp 98.3 F 04/01/25 22:02 Pulse 70 04/01/25 22:02 Resp 16 04/01/25 22:02 BP 132/79 04/01/25 22:02 Pulse Ox 100 04/01/25 22:02 O2 Del Method Room Air 04/01/25 22:02 BMI result Body Mass Index 42.7 Const: Other: The patient is awake, alert, pleasant, cooperative. She does not appear in distress. Orientation/consciousness: patient oriented x3 HEENT: Other: Face is symmetrical. Mucous membranes are moist. The right tympanic membrane is normal. Left tympanic membrane has normal color and shape with a normal light reflex but there seems to be some serous fluid behind the eardrum. Both ear canals are clear. Eyes: Other: Pupils are round equal, conjunctivae are clear, extraocular movements intact Neck: Neck: Yes normal visual inspection, Yes full ROM and Yes no JVD Resp: Effort & Inspection: normal respiratory effort Auscultation: clear to auscultation bilaterally Cardio: Rate: regular rate Rhythm: regular rhythm Heart sounds: S1 normal heart sound present and S2 normal heart sound present GI: Other: Abdomen is soft and nontender Skin: Other: The skin is dry and unremarkable Neuro: General: patient oriented x3, gait normal, tone normal, moves all extremities, no focal motor deficits and CN's II-XI intact bilaterally Extrem: Other: There is no calf swelling or tenderness. No asymmetry. No peripheral edema. Course Course Course Narrative: This is an RME: Additional HPI, ROS, PE not included below will be deferred to primary provider. RME assessment and note performed by: Melina Barboza PA-C This is a [id number], with a hx of asthma, fibromyalgia, SVT and a fib not anticoagulated, who presents to the ER with complaints of chest pain. Reports yesterday she was very congested last night took benadryl and missed flecinide and metoprolol. Reports that she had intense palpitations and chest pain while she was getting ready to go to bed last night. Reports short of breath at that time. Reports that this morning she felt lightheaded. Plan: Labs, EKG, CXR, further ER eval needed Medical Decision Making Medical Decision Making MDM Narrative: The patient is a 44-year-old woman who comes to the emergency room for evaluation of an episode of chest pain that happened yesterday evening, approximately 24 hours ago. She describes a 30 minute episode of chest pain and palpitations and shortness of breath that she says is similar to episodes of for atrial fibrillation. She is currently in his sinus rhythm. Her troponin is normal. She has not had the chest pain during the day today. I suspect she may have had an episode of atrial fibrillation. Her vital signs are otherwise very reassuring. She is not describing symptoms that I think would likely suggest a pulmonary embolism. The patient was reassured and will be discharged to follow up with the regular doctor and your provider enrollment specialist. Incidentally the patient was also concerned about her left ear. I think she has a serous effusion in the left middle ear. No sign of actual infection. Lab Data 04/01/25 18:08 04/01/25 18:08 Labs: Lab Results 04/01/25 Range/Units 18:08 WBC 10.0 (4.8-10.8) X10*3/uL RBC 4.44 (4.20-5.50) X10*6/uL Hgb 12.8 (12.0-16.0) g/dl Hct 39.5 (37.0-47.0) % MCV 89.0 (80.0-98.0) fL MCH 28.8 (27.0-33.0) pg MCHC 32.4 (31.0-35.0) g/dl RDW 13.2 (11.0-16.0) % Plt Count 301 D (160-400) X10*3/uL MPV 10.2 (9.4-12.3) fL Immature Gran % (Auto) 0.6 H (0.0-0.4) % Neut % (Auto) 68.2 (45-73) % Lymph % (Auto) 20.2 (20-40) % Dickenson % (Auto) 7.8 (2-11) % Eos % (Auto) 2.8 (0-4) % Baso % (Auto) 0.4 (0-2) % Lymph # (Auto) 2.0 (1.2-4.9) X10*3/uL Dickenson # (Auto) 0.8 (0.1-1.2) X10*3/uL Eos # (Auto) 0.3 (0.0-0.4) X10*3/uL Baso # (Auto) 0.0 (0.0-0.2) X10*3/uL Abs Immat Gran (auto) 0.06 H (0.00-0.03) X10*3/uL Absolute Neuts (auto) 6.8 (2.0-8.3) x10*3/uL Absolute Nucleated RBC 0.000 (0.0-0.012) X10*3/uL Nucleated RBC % (auto) 0.0 (0.0-0.2) /100WBC Sodium 139 (135-145) mmol/L Potassium 3.8 (3.3-5.1) mmol/L Chloride 105 (96-108) mmol/L Carbon Dioxide 26 (22-29) mmol/L Anion Gap 12 (12-20) BUN 8 L (9-16) mg/dL Creatinine 0.69 (0.5-1.4) mg/dL Estim Creat Clear Calc 134.4 Estimated GFR > 60 Random Glucose 88 (60-115) mg/dL Calcium 9.1 (8.4-10.2) mg/dL Magnesium 2.2 (1.6-2.6) mg/dL Total Bilirubin 0.3 (0.0-1.0) mg/dL Direct Bilirubin 0.1 (0.0-0.5) mg/dL AST 24 (5-31) U/L ALT 25 (0-31) U/L Alkaline Phosphatase 57 (39-117) U/L Troponin I High Sens < 2.7 (<3.5-17.0) ng/L Total Protein 7.5 (6.5-8.0) g/dL Albumin 4.2 (3.5-5.0) g/dL TSH 2.12 (0.32-4.0) uIU/mL Independent Interpretation I performed an independent interpretation of an: EKG Interpretation: EKG at 1705 shows normal sinus rhythm with a sinus arrhythmia at 64 beats per minute. There are nonspecific T-wave changes. Discharge Plan Discharge Clinical Impression: Chest pain, Acute effusion of left ear Patient Disposition: Home, Self-Care Additional Instructions: Your testing in the emergency room today seems very reassuring from the point of view of the episode of chest pain you had yesterday evening. Please continue your regular medications. If you have any questions about what medications you can take with your current cardiac medications it would be good to contact your provider enrollment specialist for additional advice as needed. I believe there is some fluid behind the eardrum of your left ear. This kind of fluid is called an effusion. However it does not look infected and I do not think antibiotics would help. I think this will probably get better on its own over a couple of weeks. Please contact your regular doctor if you have any additional questions about your ear symptoms. If at any point you feel significantly worse, especially if you have any recurrence of chest pain and shortness of breath, please return to the emergency room for additional evaluation. Prescriptions: No Action benzonatate [Tessalon Perles] 100 mg capsule 100 mg PO TID PRN (Reason: coughing) Qty: 20 0RF loratadine [Claritin] 10 mg tablet 10 mg PO DAILY Qty: 10 0RF prednisone 20 mg tablet 40 mg PO DAILY Qty: 10 0RF azithromycin 250 mg tablet See Rx Instructions .ROUTE .COMPLEX Qty: 6 0RF Rx Instructions: take 500 mg today (day 1), then 250 mg for 4 days (days 2-5) lidocaine [Lidoderm] 5 % adhesive patch,medicated 1 patch topical DAILY MDD remove after 12 hours PRN (Reason: pain) Qty: 30 0RF Rx Instructions: leave on most painful area for up to 12 hrs cyclobenzaprine 5 mg tablet 5 mg PO Q8H PRN (Reason: pain (scale score 7-10)) 5 Days Qty: 14 0RF acetaminophen [Tylenol Extra Strength] 500 mg tablet 500 mg PO Q6H PRN (Reason: fever or pain) Qty: 14 0RF naproxen 500 mg tablet 500 mg PO BID PRN (Reason: pain) 10 Days Qty: 20 0RF prednisone 20 mg tablet 40 mg PO DAILY Qty: 10 0RF benzonatate 100 mg capsule 100 mg PO TID PRN (Reason: cough) Qty: 30 0RF albuterol sulfate 90 mcg/actuation HFA aerosol inhaler 2 puff inhalation Q4-6H PRN (Reason: shortness of breath or wheezing) Qty: 8.5 0RF hydrocodone-homatropine [Hycodan] 5-1.5 mg/5 mL (5 mL) syrup 5 ml PO Q4-6H PRN (Reason: cough) Qty: 60 0RF Rx Instructions: Partial Fill upon patient request. doxycycline hyclate 100 mg tablet 100 mg PO BID Qty: 14 0RF ketorolac 10 mg tablet 10 mg PO QID PRN (Reason: pain) 5 Days Qty: 20 0RF Referrals: Nasrin Singh MD [Primary Care Provider, Internal Medicine] Rosa Maria Miranda MD [Physician, Cardiology] Interventions: ED Discharge Assessment Last Done: 04/01/25 22:02 Discharge Date/Time: 04/01/25 22:03 Print Language: Telugu
[2025-04-01 18:31] LABS: MANUAL DIFF FLAG NO
[2025-04-01 18:34] LABS: Hematocrit 39.5 % (37.0-47.0); Hemoglobin 12.8 g/dl (12.0-16.0); Imm Gran Abs Auto 0.06 X10*3/uL (0.00-0.03); Imm Gran Pct Auto 0.6 % (0.0-0.4); Lymphocytes Absolute Auto 2.0 X10*3/uL (1.2-4.9); Mean Corpuscular HGB Conc 32.4 g/dl (31.0-35.0); Mean Corpuscular Hemoglobin 28.8 pg (27.0-33.0); Mean Corpuscular Volume 89.0 fL (80.0-98.0); NRBC Abs Auto 0.000 X10*3/uL (0.0-0.012); NRBC Pct Auto 0.0 /100WBC (0.0-0.2); Platelet Count 301 X10*3/uL (160-400); Red Blood Count 4.44 X10*6/uL (4.20-5.50); White Blood Count 10.0 X10*3/uL (4.8-10.8)
[2025-04-01 18:55] LABS: Alanine Aminotransferase 25 U/L (0-31); Albumin Level 4.2 g/dL (3.5-5.0); Alkaline Phosphatase 57 U/L (39-117); Anion Gap 12 (12-20); Aspartate Amino Transferase 24 U/L (5-31); Blood Urea Nitrogen 8 mg/dL (9-16); Calcium 9.1 mg/dL (8.4-10.2); Carbon Dioxide 26 mmol/L (22-29); Chloride 105 mmol/L (96-108); Creatinine Clr Calc Pharmacy 134.4; Estimated Glomerular Filt Rate > 60; Magnesium 2.2 mg/dL (1.6-2.6); Potassium 3.8 mmol/L (3.3-5.1); Sodium 139 mmol/L (135-145); Total Protein 7.5 g/dL (6.5-8.0)
[2025-04-01 19:04] LABS: Troponin-I High Sensitivity < 2.7 ng/L (<3.5-17.0)
--- OUTSIDE RECORDS SUMMARY | 2025-04-01 21:05 | XMS_ITS | Clinical Summary ---
Author Organization [address] Address [address] [place] [phone] Phone Care Team Providers Care Willower Name Role Phone Nasrin Hart MD Primary Care Prov ider Allergies Active Allergy Reactions Criticality Noted Date Comments Azithromycin Medium 08/11/2019 Other Reaction(s): Rash/Dermatitis Itch and rash on arms Bee Pollen 02/19/2017 Benralizumab Anaphylaxis High 03/03/2019 Chest tightness and globus sensation that resolved after use of EPinephrine Dog Dander 05/24/2022 Dupilumab 01/29/2020 Other Reaction(s): Rash/Dermatitis Injection site reaction Lactose Diarrhea,GI intolerance 06/11/2024 Penicillins 02/06/2013 Other Reaction(s): Hives/Urticaria Medications atomoxetine (STRATTERA) 18 mg capsule 2 Active diazePAM (VALIUM) 2 mg tablet Take 2 mg by mouth as needed. Active EPINEPHrine (EpiPen 2-Navi) 0.3 mg/0.3 mL injection Inject 1 Device as directed as needed (ANAPHYLAXIS). Use as directed 1 Active ketoconazole (NIZORAL) 2 % cream Apply cream to the affected areas of the bottom and top of feet twice daily 3 Active ketotifen (ZADITOR) 0.025 % ophthalmic solution Place 1 Drop into both eyes 2 times daily as needed (itch or tear). 10/27/202 1 Active levocetirizine (XYZAL) 5 mg tablet Take 1 tablet by mouth daily for 360 days. 1 Active ARIPiprazole (ABILIFY) 20 mg tablet Take 1 tablet (20 mg total) by mouth 1 (one) time each day. 4 Active budesonide-form oteroL (SYMBICORT) 80-4.5 mcg/actuation inhaler Inhale 2 puffs by mouth 2 (two) times a day. Rinse mouth with water after use to reduce aftertaste and incidence of candidiasis. Do not swallow. Active flecainide (TAMBOCOR) 100 mg tablet TAKE 1 TABLET BY MOUTH TWICE DAILY 200 tablet 1 5 Active atorvastatin (LIPITOR) 20 mg tablet TAKE 1 TABLET BY MOUTH ONCE DAILY 90 tablet 3 5 Active metoprolol succinate (TOPROL-XL) 25 mg 24 hr tabletIndicatio ns:Palpitation, SVT (supraventricul ar tachycardia) (CMS/HCC V24) Take 1 tablet (25 mg total) by mouth 1 (one) time each day. Can take add'l 25 mgs for prolonged palpitations Do not crush or chew. 100 each 2 5 Active methylPREDNISol one (MEDROL DOSPAK) 4 mg tablet Follow schedule on package instructions 1 each 5 Active Hospital, Clinic, or Other Facility Administered Medication Ordered Dose Route Frequency Start Date End Date Status dexAMETHasone (DECADRON) injection 4 mgIndications:De Quervain's tenosynovitis 4 mg Once PRN Procedure 03/10/2025 03/10/2025 Ended lidocaine (XYLOCAINE) 1 % injection 0.5 mLIndications:De Quervain's tenosynovitis .5 mL inj Once PRN Procedure 03/10/2025 03/10/2025 Ended Active Problems Problem Noted Date Diagnosed Date Pain of left breast 09/23/2024 Fibroadenoma of left breast 09/23/2024 De Quervain's tenosynovitis 06/10/2024 Carpal tunnel syndrome of right wrist 06/10/2024 Depression 05/04/2024 Class 2 severe obesity due t o excess calories with serious comorbidity and body mass index (BMI) of 38.0 to 38.9 in adult ([facility] V24, [facility] V28) 05/04/2024 Chronic pelvic pain in female 04/13/2023 Overview (05/04/2024): Last Assessment & Plan: I explained to [facility] that, while hysterectomy with definitely help with heavy and irregular menstrual bleeding, I cannot guarantee that it will help with her chronic pain. It is unclear the etiology and could be of another organ system as discussed previously. She voiced understanding and agreed. We will plan for RATONIEL, BS, cystoscopy. Will leave ovaries in place. She was counseled re: risks of surgery and recovery. She desired to proceed. Continue prn ibuprofen until 7 days prior to surgery. Will have pre-op with PCP and with me. Menorrhagia with irregular cycle 04/13/2023 Overview (05/04/2024): Last Assessment & Plan: I encouraged her to consider using Aygestin until her hysterectomy to stop bleeding and hopefully help some with her pain as well. She was open to short term use. She was counseled re: most common SE including breast tenderness and SUÁREZ when starting that usually resolve relatively short term. Subserous leiomyoma of uterus 04/13/2023 Overview (05/04/2024): Last Assessment & Plan: I counseld Mercy that her fibroid is likely insignificant and not contributing to her sx given that it is small and subserosal. Hypertension 08/13/2022 Assessment & Plan (12/09/2024 9:35 AM EDT): HTN well controlled on Metoprolol 25mg day. Encouraged to follow a low salt diet, physical activity. Sinus tachycardia 08/13/2022 PAF (paroxysmal atrial fibri llation) ([facility] V24, [facility] V28) 05/24/2022 Palpitation 01/17/2022 SOB (shortness of breath) 01/17/2022 SVT (supraventricular tachycardia) ([facility] V24) 10/17/2021 Overview (05/04/2024): Last Assessment & Plan: Patient with documented evidence of supraventricular tachycardia. Patient was started on a low-dose of metoprolol succinate 12.5 mg a day to try to stop this have also taught how to do a Valsalva maneuver if an episode were to be persistent she will stop it on her own. Again I do not think these are the cause of her chest pain or her syncope needs an incidental finding that could explain her palpitations. The patient's EpiPen is used very rarely. I do not feel that we need to avoid beta-mando at this point since her use of EpiPen is very rare and the dose of beta-mando using is very low. Migraine headache 10/05/2021 Posttraumatic stress disorder 10/05/2021 Gastritis due to Helicobacter species 10/05/2021 Binge eating disorder 10/05/2021 Syncope 09/01/2021 Overview (05/04/2024): Last Assessment & Plan: Patient said no further episodes of syncope. I doubt the SVT is connected to the episodes of syncope Hiatal hernia 03/14/2021 Dysmenorrhea 10/10/2020 Overview (05/04/2024): Last Assessment & Plan: Discussed functional ovarian cysts and mittelschmertz pain Discussed dysmenorrhea with menses and relief measures. Recommend aleve or motrin scheduled starting the day prior to menses. Discussed non-contraceptive benefits of BC. Patient declined at this time. Discussed relief measures for pain and reviewed warning signs and when to call, including fever, a significant increase in pain that might represent a rupture, torsion, or heavy vaginal bleeding. Pruritus 10/04/2020 Vocal cord dysfunction 05/12/2020 Allergic conjunctivitis of both eyes 12/21/2019 Breast fibroadenoma in female, left 08/12/2019 Perennial allergic rhinitis 06/23/2019 GERD (gastroesophageal reflux disease) 9 Obese 03/20/2019 PLMD (periodic limb movement disorder) 8 Obstructive sleep apnea syndrome 05/05/2018 Overview (05/04/2024): [facility] Polysomnogram: Date 03/13/2017; Wt 256#; SE 93%; SM 92%; REM 2%; AHI 12, REM AHI 71, Central apneas 6; Obstructive apneas 0; Mixed apneas 1; hypopneas 66; average oxygen saturation 95% (lowest 88%); PLMs 2. [facility] Polysomnogram: Date 05/19/2018; Wt 279# SE 74%; SM 90%; REM 15%; RDI 14 (AHI 14), REM (RDI 70 - AHI 70), Central apneas 0; Obstructive apneas 0; Mixed apneas 0; hypopneas 64; RERAs 0; average oxygen saturation 93% (lowest 84% - without saturations <88% for 5% or more of study); PLMs 16. [facility] Polysomnogram treatment study. Date 06/01/2018. SE 94 % SM 96%; spent 18 % of the study in REM. On CPAP @ 6; RDI 4.1 (AHI 4.1), Central apneas 0; Obstructive apneas 0; Mixed apneas 0; hypopneas 19; RERAs 0; and, average oxygen saturation was 93%. For the entire study, PLMs ~26. - Obstructive Sleep Apnea - mild overall and severe in REM; all hypopneas; without sleep related hypoventilation by 2018 polysomnogram. Inclusion cyst 10/25/2017 Overview (05/04/2024): Last Assessment & Plan: Reviewed this is a benign vulvar inclusion cyst which has simple fluid within. Reviewed option of expectant management vs incision and drainage. She was counseled re: risks and benefits. Risks reviewed including bleeding, infection, pain, recurrence. She was counseled even after drainage it may recur. She opted for I&D. Procedure: I&D vulvar cyst The patient was consented for I&D as above. She was placed in dorsal lithotomy position. The area of planned incision was prepped with betadine. I offered local anesthesia, but the patient declined. A single 3 mm incision was made and about 3 cc of clear gelatinous drained easily. Hemostasis was obtained with pressure and silver nitrate. Bacitracin was applied. The patient tolerated the procedure well. She was encouraged to use soaks and seal for the next few days and will call with worsening pain or other concerns. LGSIL of cervix of undetermined significance Overview (05/04/2024): 06/21/17 ASCUS, positive HRPV 08/29/17 Colpo negtive biopsy 07/16/19 LGSIL 09/14/2019 Neg colopo Vitamin D deficiency 02/19/2017 Hypothyroidism 02/22/2016 IBS (irritable bowel syndrome) 05/05/2015 Anxiety 04/14/2014 Bipolar disorder ([facility] V24, [facility] V28) 04/05 Overview (05/04/2024): Dr. Laura Morocho ([facility]) Dyslipidemia 03/10/2013 Asthma 02/06/2013 Overview (05/04/2024): Last Assessment & Plan: Needs of exertional fatigue sudden loss of energy especially at times with physical activity. Exertional chest discomfort and rest discomfort almost on a weekly basis she does have risk factors we will schedule her for stress echocardiogram. Assessment & Plan (12/09/2024 9:35 AM EDT): No recent exacerbations, no visits to emergency. Patient is on Symbicort. Will continue same medication. Cervical disc disease 02/06/2013 Fibromyalgia 02/06/2013 Overview (05/04/2024): Onset 10/13. Reported somewhat better on Cymbalta, gabapentin Seasonal allergies 02/06/2013 Encounters Date Type Department Care Team Description 03/10/2025 1:30 PM EDT Office Visit Orthopedic Surgery - [place] [address] [place] [address] Lianne Grider PA De Quervain's tenosynovitis (Primary Dx) 03/04/2025 8:33 AM EDT - 03/04/2025 11:59 PM EDT Hospital Encounter Radiology Department - [address] [phone] Abnormal mammogram Discharge Disposition: Home or Self Care 03/04/2025 8:32 AM EDT - 03/04/2025 11:59 PM EDT Hospital Encounter Radiology Department - [address] [place] [phone] Abnormal mammogram Discharge Disposition: Home or Self Care 03/02/2025 9:03 AM EDT - 03/02/2025 11:59 PM EDT Hospital Encounter Radiology Department - [place] [address] [phone] Abnormal mammogram Discharge Disposition: Home or Self Care 02/25/2025 12:49 PM EDT - 02/25/2025 11:59 PM EDT Hospital Encounter [facility] CT Scan [address] [place] [address] Tremor; Imbalance; Dizziness Discharge Disposition: Home or Self Care 01/27/2025 2:45 PM EDT Office Visit Orthopedic Surgery - [place] [address] [place] [address] Lianne Grider, PA Right wrist tendinitis (Primary Dx); Carpal tunnel syndrome of right wrist from Last 3 Months Immunizations Name Administration Dates Next Due Influenza Quadravalent, MDCK , 0.5ml, preservative free (Flucelvax) 6mo and older 09/11/2023,09/06/2022,07/06/2021 Influenza Quadravalent, MDCK , 0.5ml, with preservative (Flucelvax) 6mo and older 05/08/2017 Influenza trivalent, with pr eservative (Fluzone; Afluria) 6mo and older 05/20/2024,04/05/2018,05/19/2013 Influenza, Unspecified 05/05/2016,06/14/2015 Moderna SARS-CoV-2 COVID-19, mRNA, LNP-S, preservative free 09/01/2021,12/14/2020,11/16/2020 Pneumococcal conjugate 20 va lent (Prevnar 20, PCV 20) 2mo and older 06/11/2024 Pneumococcal polysaccharide 23 valent (Pneumovax 23) 2yo and older 05/08/2017 Tdap Tetanus diptheria acell ular pertussis (Boostrix; Adacel) 7yo and older 12/09/2024,12/01/2014 Surgical History Surgery Date Site/Laterality Comments TUBAL LIGATION 2000 PROCEDURE: HISTORICAL TUBAL LIGATION BREAST LUMPECTOMY 2001 PROCEDURE: ---- BREAST LUMP BIOPSY ---- ESOPHAGOGASTRODUODENOSCOPY 02/19/20 15 PROCEDURE: ME ESOPHAGOGASTRODUODENOSCOPY TRANSORAL DIAGNOSTIC; COMMENT: normal with nl esophageal and duodenal bxys CHOLECYSTECTOMY 01/29/20 PROCEDURE: HISTORICAL CHOLECYSTECTOMY; COMMENT: by Dr. Obrien at [facility]. No complication SHOULDER ARTHROSCOPY 02/2018 Right PROCEDURE: ME SURGICAL ARTHROSCOPY SHOULDER W/LSS&RESCJ ADS; COMMENT: decompressive surgery OTHER SURGICAL HISTORY PROCEDURE: ARTHROSCOPY PROCEDURE NEC UPPER GASTROINTESTINAL ENDOSCOPY 03/08/20 PROCEDURE: ME UPPER GI ENDOSCOPY PERFORMED; COMMENT: negative, biopsy pending OTHER SURGICAL HISTORY PROCEDURE: HISTORICAL SUBTOTAL THYROIDECTOMY BREAST BIOPSY 2015 Left PROCEDURE: BX BREAST; PERC NEEDLE CORE W/IMAG GUID; COMMENT: lt. breast-fibroadenoma BREAST SURGERY 2002 Left PROCEDURE: ME UNLISTED PROCEDURE BREAST; COMMENT: benign SHOULDER ARTHROSCOPY 06/20/20 Left PROCEDURE: ME SURGICAL ARTHROSCOPY SHOULDER W/LSS&RESCJ ADS; COMMENT: Left shoulder arthroscopic subacromial decompression. Labral debridement. OTHER SURGICAL HISTORY PROCEDURE: ME LAPAROSCOPY SLING OPERATION STRESS INCONT; COMMENT: bladder 11/2020 ROBOTIC ASSISTED HYSTERECTOMY 10/02/19 PROCEDURE: HISTORICAL ROBOTIC HYSTERECTOMY WITH OR WITHOUT BSO; COMMENT: bilateral salpingectomy, [place] Medical History Medical History Date Comments Fibromyalgia 02/06/2013 DX:Fibromyalgia Chronic pain 02/06/2013 DX:Chronic pain Pain in joint, multiple sites 02/06/2013 DX :Pain in joint, multiple sites Joint swelling 02/06/2013 DX:Joint swellin g Seasonal allergies 02/06/2013 DX:Seasonal a llergies Asthma 02/06/2013 DX:Asthma Cervical disc disease 02/06/2013 DX:Cervica l disc disease Dyslipidemia 03/10/2013 DX:Dyslipidemia Family history of breast cancer DX:Family history of breast cancer; COMMENT: Pt BRCA negative 02/2014, low risk Depression DX:Depression Anxiety DX:Anxiety; COMM [facility] PTSD (post-traumatic stress disorder) DX:PTSD (post-traumatic stress disorder) Bipolar 2 disorder (CMS/HCC V24, CMS/HCC V28) DX:Bipolar 2 disorder (HCC) Fibromyalgia DX:Fibromyalgia ANIYA (obstructive sleep apnea) DX :ANIYA (obstructive sleep apnea); COMMENT: [facility] History of endoscopy 10/13/2019 DX:History of endoscopy Thyroid disease DX:Thyroid disea se Migraines DX:Migraines Breast fibroadenoma in female, left DX:Breast fibroadenoma in female, left; COMMENT: 3 oclock, Biopsy 07/24/2022 Drug reaction 04/26/2020 DX:Drug reaction Epistaxis 06/07/2020 DX:Epistaxis H. pylori infection 02/19/2017 DX:H. pylori infection Family History Medical History Relation Name Comments Breast cancer Aunt 1 2 pat 50 42 unilateral -ma ternal aunt Breast cancer Aunt 2 mat 35 pat x 2 Ovarian cancer Aunt 2 mat 35 paternal aunt Hypertension Father Stroke Maternal Grandfather Arthritis Maternal Grandmother Coronary artery disease Maternal Grandmother Diabetes Maternal Grandmother Uterine cancer Maternal Grandmother Breast cancer Mother Other: pulmonary embolism Mother pa rents are cousins Hypertension Mother's side arthritis, walt betes, breast ca Other: cancer,other Other 1 mat gr g rf colon ca Throat cancer Other 2 paternal first cousin-nonsmoker Diabetes Other 3 niece at 18 mon ths old Throat cancer Other 4 mat gr grandmo ther Colon cancer Paternal Grandfather Arthritis Paternal Grandmother Uterine cancer Sister 1 pulmonary emb olism Relation Name Status Comments Aunt 1 2 pat 50 42 Alive Aunt 2 mat 35 Alive Father Alive Maternal Grandfather Maternal Grandmother Mother Alive Mother's side Other 1 Other 2 Other 3 Other 4 Paternal Grandfather Paternal Grandmother Sister 1 Alive Sister 2 Alive Social History Tobacco Use Types Packs/Day Years Used Date Smoking Tobacco: Former Cigarettes 1 16.3 0 1996 - 01/20/2013 Smokeless Tobacco: Never Tobacco Cessation:Counseling Given: Not Answered Alcohol Use Standard Drinks/Week Comments No 0 (1 standard drink = 0.6 oz pur e alcohol) Housing Instability Answer Date Recorde d Are you worried that in the next 2 months you may not have stable housing? No 06/11/2024 Food Access & Nutrition Answer Date Rec orded Do you have access to a vari ety of food including fruits and vegetables? No 06/11/2024 Access to Healthcare Answer Date Record ed Within the last 3 months, ho w many times did you visit the emergency department for your medical care? 0 06/11/2024 Health Literacy Answer Date Recorded How often do you need to hav e someone help you when you read instructions, pamphlets, or other written material from your doctor or pharmacy? Never 06/11/2024 Caregiver: How often do you need to have someone help you when you read instructions, pamphlets, or other written material from your doctor or pharmacy? Not on file 06/11/2024 Financial Risk Answer Date Recorded How hard is it for you to pa y for the very basics like food, housing, medical care, and air conditioning / heating? Very hard 06/11/2024 Transportation Answer Date Recorded Has the lack of transportati on kept you from meetings, work, or from getting things needed for daily living? No Has the lack of transportati on kept you from medical appointments or from getting medications? No 06/11/2024 Social Isolation Answer Date Recorded How often do you feel lonely or isolated from th ose around you? Never 06/11/2024 Food Risk Answer Date Recorded Within the past 12 months we worried whether our food would run out before we got money to buy more. Never true 06/11/2024 Within the past 12 months th e food we bought just didn't last and we didn't have money to get more. Never true 06/11/2024 Dependent Care Answer Date Recorded Do you need help finding or paying for care for your loved ones. For example, childrens club attendant or elderly care for an older adult? No 06/11/2024 Education Answer Date Recorded Do you think completing more education or training, like finishing a GED, going to college, or learning a trade, would be helpful for you? No 06/11/2024 Employment and Income Answer Date Recor ded During the last four weeks, have you been actively looking for work? No 06/11/2024 Living Situation Answer Date Recorded What is your living situation? 1 08/11/2023 Interpersonal Safety Answer Date Record ed Physical Abuse 10/06/2024 Verbal Abuse 10/06/2024 Comments No Sex and Gender Information Value Date Recorded Sex Assigned at Female 09/07/2024 8:20 AM EST Legal Sex Female 5:46 AM EST Gender Identity Female 09/07/2024 8:20 AM EST Sexual Orientation Straight 09/07/2024 8: 20 AM EST Obstetrics History Para Term AB IAB SAB Ectopic Multiple Livin g Live Births 2 2 2 2 Date Outcome GA Total Labor Labor/2nd/3rd Weight Sex Type Anes PTL Debbie A1 A5 Name Clin Term Term Last Filed Vital Signs Vital Sign Reading Time Taken Comments Blood Pressure 110/78 12/17/2024 10:31 AM EDT Pulse 60 12/17/2024 10:31 AM EDT Temperature 36.4 C (97.6 F) 12/09/2024 8:56 AM EDT Respiratory Rate 16 12/17/2024 2:38 PM EDT Oxygen Saturation 100% 10/06/2024 4:14 PM EST Inhaled Oxygen Concentration - - Weight 121 kg (266 lb) 01/27/2025 2:34 PM EDT Height 167.6 cm (5' 6 ) 12/17/2024 2:38 PM EDT Body Mass Index 42.93 12/17/2024 2:38 PM EDT Plan of Treatment Upcoming Encounters Date Type Department Care Team (Late st Contact Info) Description 06/11/2025 9:30 AM EST Office Visit Adult Medicine [address] [phone] Nasrin Hart MD [address] [place] [phone] 06/23/2025 1:40 PM EST Office Visit [facility] [address] [facility] [address] [place] [address] Lianne Nolan PA [address] [address] [place] [phone] Health Maintenance Due Date Last Done Comments Hepatitis B Vaccines (1 of 3 - 19+ 3-dose series) 1997 Medicare Annual Wellness Visit 07/14/2022 COVID-19 Vaccine ( season) 2024 09/01/2021, 12/14/2020, 11/16/2020 Influenza Vaccine (#1) 2025 , 09/11/2023, 09/06/2022, Additional history exists Social Influencers of Health Screening 06/11/2025 06/11/2024 Hypertension/CHF/CAD Annual BMP Blood Test 06/19/2025 06/19/2024, 03/18/2024, 03/18/2024 Breast Cancer Screening 03/02/2027 03/02/20 25, 08/03/2024, 09/12/2023, Additional history exists Colorectal Cancer Screening: Colonoscopy 09/08/2029 09/08/2024 Cholesterol Screening (Lipid Panel) 12/09/2029 12/09/2024, 06/19/2024, 09/14/2022 DTaP,Tdap,and Td Vaccines (3 - Td or Tdap) 12/09/2034 12/09/2024, 12/01/2014 Cervical Cancer Screening: HPV Discontinued 10/10/2020 HIV Screening Completed 11/08/2020 Hepatitis C Screening Completed 11/08/2020 Pneumococcal Vaccine: Pediatrics (0 to 5 Years) and At-Risk Patients (6 to 49 Years) Completed 06/11/2024, 05/08/2017 Depression Screening Completed 12/09/2024, 10/14/19 24 HIB Vaccines Aged Out No longer eligi ble based on patient's age to complete this topic HPV Vaccines Aged Out No longer eligi ble based on patient's age to complete this topic Hepatitis A Vaccines Aged Out No long er eligible based on patient's age to complete this topic IPV Vaccines Aged Out No longer eligi ble based on patient's age to complete this topic MMR Vaccines Aged Out No longer eligi ble based on patient's age to complete this topic Meningococcal ACWY Vaccine Aged Out N o longer eligible based on patient's age to complete this topic Meningococcal B Vaccine Aged Out No l onger eligible based on patient's age to complete this topic RSV Immunization Patients Under 20 months Aged Out No longer eligible based on patient's age to complete this topic Varicella Vaccines Aged Out No longer eligible based on patient's age to complete this topic Medical Devices Implanted Type Area Expedition Supervisor Device Identifier Shelf Expiration Date Model / Serial / Lot Hemostat Flour Collgn 1gm Wayne - Sn/A - [id number] Implanted:Qty: 1 on 10/06/2024 by Leno Estes MD at [facility] Hemostasis Left: Breast CR BARD - DAVOL DIV [id number] / N/A / N/A Marker 18ga Magseed 7cm - [id number] - [id number] Implanted:Qty: 1 on 10/05/2024 by Wilmer Saldaña MD at [facility] Imaging Implants Left: Breast DEVICOR Worklight [id number] 02/01/2026 [id number] / [id number] / [id number] Description:8:00 1 cm fn Procedures Procedure Name Priority Date/Time Associated Diagnosis Comments ME INJECTION SINGLE TENDON SHEATH OR LIGAMENT APONEUROSIS Routine 03/10/2025 1:30 PM EDT De Quervain's tenosynovitis MG MAMMO DIGITAL DIAGNOSTIC CLIP POST US/MR GUIDE RIGHT Routine 03/04/2025 9:07 AM EDT Abnormal mammogram US BX BREAST PERC 1ST LESION RIGHT Routine 03/04/2025 9:02 AM EDT Abnormal mammogram TISSUE EXAM Routine 03/04/2025 8:50 AM EDT Abnormal mammogram MG MAMMO DIGITAL DIAGNOSTIC W RASHAD RIGHT Routine 03/02/2025 9:28 AM EDT Abnormal mammogram CT HEAD WO CONTRAST Routine 02/25/2025 1 :39 PM EDT Tremor Imbalance Dizziness ME INJECTION CARPAL TUNNEL THERAPEUTIC Routine 01/27/2025 2:45 PM EDT Carpal tunnel syndrome of right wrist LIPID PANEL WITH REFLEX TO DIRECT LDL Routine 12/09/2024 10:19 AM EDT Mixed hyperlipidemia COLONOSCOPY Routine 09/08/2024 3:16 PM EST Encounter for screening for malignant neoplasm of colon COMPREHENSIVE METABOLIC PANEL Routine 06/19/2024 9:30 AM EST Physical exam DEPRESSION SCREENING Routine 10/14/2023 HEPATITIS C SCREENING Routine 11/08/2020 HIV SCREENING Routine 11/08/2020 HPV Routine 10/10/2020 from Last 3 Months or Most Recently Relevant to Health Maintenance Results * ME INJECTION SINGLE TENDON SHEATH OR LIGAMENT APONEUROSIS (03/10/2025 1:30 PM EDT) Lianne Lynne PA - 03/10/2025 1:30 PM EDT MALIK Estrada 03/10/2025 2:38 PM Hand / UE Inj/Asp: R extensor compartment 1 for de Quervain's tenosynovitis Indications: pain Details: 25 G needle, dorsal approach Medications: 4 mg dexAMETHasone 4 mg/mL; 0.5 mL lidocaine 1 % Informed Consent: Laterality: Right Relevant images/test results available and reviewed: yes Health status cleared: Yes Procedure/treatment, purpose, treatment alternatives, risks/potential complications and benefits explained: yes Risk/complications/benefits details: Risks of infection, thinning of the skin and temporary skin discoloration discussed. Discussed risks of temporary increased pain after injection and swelling and mild redness at injection site for couple days. Explained occasionally cortisone injection can cause facial flushing temporarily. Benefits pain management. For postop injection pain ice, Tylenol and/or NSAIDs if patient can take Patient questions answered: yes Patient agrees, verbalizes understanding, and wants to proceed: yes Consent given by: Patient Informed consent discussion completed by Physician/DEMI with patient: Verbal Pre-procedure timeout performed: yes us Lianne GAN IN CLINIC/BEDSIDE ORDERABLES Final Result * MG Mammo Digital Diagnostic Clip Post US/MR Guide Right (03/04/2025 9:07 AM EDT) Anatomical Region Laterality Modality Breast Right Mammography 03/04/2025 9:15 AM EDT Addenda Addendum by Yaneli Barrientos MD on 03/05/2025 10:39 AM EDT Addendum: Final Diagnosis Right breast, 6 o'clock, 3 cm from nipple, ultrasound-guided core biopsy: Fibroadenoma No atypia or malignancy identified Pathology is concordant with imaging findings. Results discussed with the patient by telephone on 03/05/2025. RECOMMENDATION: No follow-up right breast imaging recommendations. -------- ADDENDUM -------- Dictated By: Yaneli Barrientos Dictated Date: 03/05/2025 10:38 ET Assigned Physician: Yaneli Barrientos Reviewed and Electronically Signed By: Yaneli Barrientos Signed Date: 03/05/2025 10:39 ET Workstation ID: [id number] Transcribed By: Self Edit Transcribed Date: 03/05/2025 10:38 ET Impressions 03/04/2025 9:19 AM EDT Seemingly successful ultrasound-guided core biopsy of a right breast lesion. Pathologic analysis is pending. RECOMMENDATION: Pathology pending for the right breast. POS - [id number] -------- FINAL REPORT -------- Dictated By: Yaneli Barrientos Dictated Date: 03/04/2025 09:15 ET Assigned Physician: Yaneli Barrientos Reviewed and Electronically Signed By: Yaneli Barrientos Signed Date: 03/04/2025 09:19 ET Workstation ID: [id number] Transcribed By: Self Edit Transcribed Date: 03/04/2025 09:15 ET Narrative 03/04/2025 9:19 AM EDT EXAM: Ultrasound-guided core biopsy and unilateral digital diagnostic mammogram right breast. FINDINGS: Patient presents for ultrasound-guided biopsy of a 1.4 x 1.1 x 0.9 cm lesion at the 6 o'clock of the right breast, 3 cm from the nipple. Prior imaging from 03/02/2025, 08/12/2024, and 08/03/2024 was reviewed. Risks and benefits of the procedure including specific risks of hemorrhage and infection were discussed with the patient before beginning the procedure. Written and verbal consent to proceed were given. The overlying skin was prepped with betadine and anesthetized with 1% buffered lidocaine. A skin cole was then made. Using ultrasound guidance, 5 passes were made into the lesion using a 14 gauge Bard Marquee needle. A heart clip was deployed in the lesion. No immediate complications. No postprocedural hematoma. Unilateral right digital diagnostic mammogram was performed following ultrasound-guided biopsy with clip placement. New biopsy marker at the 6 o'clock position at the middle depth with corresponds with the enlarging lesion of concern indicating concordance of the mammographic and sonographic findings. No significant hematoma is present. Procedure Note Yaneli Barrientos MD - 03/04/2025 EXAM: Ultrasound-guided core biopsy and unilateral digital diagnosticmammogram right breast. FINDINGS: Patient presents for ultrasound-guided biopsy of a 1.4 x 1.1 x 0.9 cmlesion at the 6 o'clock of the right breast, 3 cm from the nipple. Priorimaging from 03/02/2025, 08/12/2024, and 08/03/2024 was reviewed. Risksand benefits of the procedure including specific risks of hemorrhage andinfection were discussed with the patient before beginning the procedure.Written and verbal consent to proceed were given. The overlying skin was prepped with betadine and anesthetized with 1%buffered lidocaine. A skin cole was then made. Using ultrasoundguidance, 5 passes were made into the lesion using a 14 gauge Bard Marqueeneedle. A heart clip was deployed in the lesion. No immediatecomplications. No postprocedural hematoma. Unilateral right digital diagnostic mammogram was performed followingultrasound-guided biopsy with clip placement. New biopsy marker at the 6o'clock position at the middle depth with corresponds with the enlarginglesion of concern indicating concordance of the mammographic andsonographic findings. No significant hematoma is present. IMPRESSION: Seemingly successful ultrasound-guided core biopsy of a right breastlesion. Pathologic analysis is pending. RECOMMENDATION: Pathology pending for the right breast. POS - [id number] -------- FINAL REPORT -------- Dictated By: Yaneli Barrientos Dictated Date: 03/04/2025 09:15 ET Assigned Physician: Yaneli Barrientos Reviewed and Electronically Signed By: Yaneli Barrientos Signed Date: 03/04/2025 09:19 ET Workstation ID: [id number] Transcribed By: Self Edit Transcribed Date: 03/04/2025 09:15 ET us Nasrin Hart MD IMG BI PROCEDURES Edited Result - Final * US Bx Breast Perc 1st Lesion Right (03/04/2025 9:02 AM EDT) Anatomical Region Laterality Modality Breast Right Ultrasound 03/04/2025 9:15 AM EDT Addenda Addendum by Yaneli Barrientos MD on 03/05/2025 10:39 AM EDT Addendum: Final Diagnosis Right breast, 6 o'clock, 3 cm from nipple, ultrasound-guided core biopsy: Fibroadenoma No atypia or malignancy identified Pathology is concordant with imaging findings. Results discussed with the patient by telephone on 03/05/2025. RECOMMENDATION: No follow-up right breast imaging recommendations. -------- ADDENDUM -------- Dictated By: Yaneli Barrientos Dictated Date: 03/05/2025 10:38 ET Assigned Physician: Yaneli Barrientos Reviewed and Electronically Signed By: Yaneli Barrientos Signed Date: 03/05/2025 10:39 ET Workstation ID: [id number] Transcribed By: Self Edit Transcribed Date: 03/05/2025 10:38 ET Impressions 03/04/2025 9:19 AM EDT Seemingly successful ultrasound-guided core biopsy of a right breast lesion. Pathologic analysis is pending. RECOMMENDATION: Pathology pending for the right breast. POS - [id number] -------- FINAL REPORT -------- Dictated By: Yaneli Barrientos Dictated Date: 03/04/2025 09:15 ET Assigned Physician: Yaneli Barrientos Reviewed and Electronically Signed By: Yaneli Barrientos Signed Date: 03/04/2025 09:19 ET Workstation ID: [id number] Transcribed By: Self Edit Transcribed Date: 03/04/2025 09:15 ET Narrative 03/04/2025 9:19 AM EDT EXAM: Ultrasound-guided core biopsy and unilateral digital diagnostic mammogram right breast. FINDINGS: Patient presents for ultrasound-guided biopsy of a 1.4 x 1.1 x 0.9 cm lesion at the 6 o'clock of the right breast, 3 cm from the nipple. Prior imaging from 03/02/2025, 08/12/2024, and 08/03/2024 was reviewed. Risks and benefits of the procedure including specific risks of hemorrhage and infection were discussed with the patient before beginning the procedure. Written and verbal consent to proceed were given. The overlying skin was prepped with betadine and anesthetized with 1% buffered lidocaine. A skin cole was then made. Using ultrasound guidance, 5 passes were made into the lesion using a 14 gauge Bard Marquee needle. A heart clip was deployed in the lesion. No immediate complications. No postprocedural hematoma. Unilateral right digital diagnostic mammogram was performed following ultrasound-guided biopsy with clip placement. New biopsy marker at the 6 o'clock position at the middle depth with corresponds with the enlarging lesion of concern indicating concordance of the mammographic and sonographic findings. No significant hematoma is present. Procedure Note Yaneli Barrientos MD - 03/04/2025 EXAM: Ultrasound-guided core biopsy and unilateral digital diagnosticmammogram right breast. FINDINGS: Patient presents for ultrasound-guided biopsy of a 1.4 x 1.1 x 0.9 cmlesion at the 6 o'clock of the right breast, 3 cm from the nipple. Priorimaging from 03/02/2025, 08/12/2024, and 08/03/2024 was reviewed. Risksand benefits of the procedure including specific risks of hemorrhage andinfection were discussed with the patient before beginning the procedure.Written and verbal consent to proceed were given. The overlying skin was prepped with betadine and anesthetized with 1%buffered lidocaine. A skin cole was then made. Using ultrasoundguidance, 5 passes were made into the lesion using a 14 gauge Bard Marqueeneedle. A heart clip was deployed in the lesion. No immediatecomplications. No postprocedural hematoma. Unilateral right digital diagnostic mammogram was performed followingultrasound-guided biopsy with clip placement. New biopsy marker at the 6o'clock position at the middle depth with corresponds with the enlarginglesion of concern indicating concordance of the mammographic andsonographic findings. No significant hematoma is present. IMPRESSION: Seemingly successful ultrasound-guided core biopsy of a right breastlesion. Pathologic analysis is pending. RECOMMENDATION: Pathology pending for the right breast. POS - [id number] -------- FINAL REPORT -------- Dictated By: Yaneli Barrientos Dictated Date: 03/04/2025 09:15 ET Assigned Physician: Yaneli Barrientos Reviewed and Electronically Signed By: Iliana, Yaneli Signed Date: 03/04/2025 09:19 ET Workstation ID: [id number] Transcribed By: Self Edit Transcribed Date: 03/04/2025 09:15 ET us Nasrin Hart MD IMG US PROCEDURES Edited Result - Final * Tissue exam (03/04/2025 8:50 AM EDT) Final Diagnosis Right breast, 6 o'clock, 3 cm from nipple, ultrasound-guid ed core biopsy: Fibroadenoma No atypia or malignancy identified 03/05/2025 10:04 AM EDT [facility] Clinical Information hypoechoic mass ? fibroadenoma heart clip lot [id number] 03/05/2025 10:04 AM EDT [facility] Gross Description A. Breast, Right, 6 o'clock 3 cm fn: Labeled breast R, right 6:00 . Received in formalin with a Telfa pad are five disrupted cylindrical alvarez-white soft tissue cores, ranging from 0.3 x 0.1 cm to 0.6 x 0.1 cm, which are submitted in toto between sponges in one cassette, four pieces, x 3. Time collected: 8:50 AM 03/04/2025 Time put in formalin: 8:55 AM 03/04/2020 Total cold ischemic time: 5 minutes Time tissue exits final stage of formalin on tissue processor: 12 AM 03/05/2025 Total fixation time (ideally between 6 and 72 hours): 15 hours VON 03/05/2025 10:04 AM EDT [facility] Disclaimer Unless otherwise specified, all tissue is 10% NB formalin fixed and paraffin embedded. 03/05/2025 10:04 AM T [facility] Tissue Right breast structure / Unknown 03/04/2025 8:50 AM EDT 03/04/2025 4:49 PM EDT us Yaneli Barrientos MD LAB PATHOLOGY ORDERABLES Final R esult [facility] [address] [place] [address], [place] [phone] * (ABNORMAL) MG Mammo Digital Diagnostic w Rashad Right (03/02/2025 9:28 AM EDT) Anatomical Region Laterality Modality Breast Right Mammography 03/02/2025 9:35 AM EDT Impressions 03/02/2025 10:06 AM EDT Enlarging right breast nodule. Ultrasound-guided core biopsy is recommended and has been scheduled. Findings and recommendations were discussed the patient in person. BI-RADS CATEGORY: 4A - LOW SUSPICION FOR MALIGNANCY RECOMMENDATION: Core biopsy of right breast recommended. Core biopsy of right breast recommended. Core biopsy of right breast recommended. Core biopsy of right breast recommended. Mammo Location: [facility], [address] [place] [address], [id number], . . -------- FINAL REPORT -------- Dictated By: Maria E Paredes Dictated Date: 03/02/2025 09:35 ET Assigned Physician: Maria E Paredes Reviewed and Electronically Signed By: Maria E Paredes Signed Date: 03/02/2025 10:06 ET Workstation ID: [id number] Transcribed By: Self Edit Transcribed Date: 03/02/2025 09:46 ET Narrative 03/02/2025 10:06 AM EDT CLINICAL: 44 years old, Female, six-month follow-up ultrasound-guided core biopsy of 6 o'clock lesion right breast with pathology demonstrating fibroadenoma. COMPARISON: Bilateral mammogram 06/16/2022 and 09/12/2023. Postprocedure right breast mammogram 08/12/2024. Diagnostic left breast mammogram 07/11/2022 and 07/20/2022. Bilateral breast ultrasound 08/03/2024. Ultrasound-guided right breast biopsy 08/12/2024. FINDINGS: MAMMOGRAPHY TECHNIQUE: Bilateral MLO and CC views were obtained digitally with 3-D mammogram (digital breast tomosynthesis). Spot compression CC and MLO views of the right breast are also obtained. Computer-aided detection was utilized in evaluation of this exam (CAD). There is no evidence of architectural distortion. No worrisome calcifications are evident. Nodule with associated biopsy clip in the slightly medial lower right breast is again noted. Ovoid focal asymmetry at the 6 o'clock position in the right breast has increased slightly in size since the previous exam. BREAST DENSITY: B - There are scattered areas of fibroglandular density. Procedure Note Maria E Paredes MD - 03/02/2025 CLINICAL: 44 years old, Female, six-month follow-up ultrasound-guided corebiopsy of 6 o'clock lesion right breast with pathology demonstratingfibroadenoma. COMPARISON: Bilateral mammogram 06/16/2022 and 09/12/2023. Postprocedureright breast mammogram 08/12/2024. Diagnostic left breast yvamazcxy48/7/2022 and 07/20/2022. Bilateral breast ultrasound 08/03/2024.Ultrasound-guided right breast biopsy 08/12/2024. FINDINGS: MAMMOGRAPHY TECHNIQUE: Bilateral MLO and CC views were obtained digitally with 3-Dmammogram (digital breast tomosynthesis). Spot compression CC and MLOviews of the right breast are also obtained. Computer-aided detection wasutilized in evaluation of this exam (CAD). There is no evidence of architectural distortion. No worrisomecalcifications are evident. Nodule with associated biopsy clip in theslightly medial lower right breast is again noted. Ovoid focal asymmetryat the 6 o'clock position in the right breast has increased slightly insize since the previous exam. BREAST DENSITY: B - There are scattered areas of fibroglandular density. IMPRESSION: Enlarging right breast nodule. Ultrasound-guided core biopsy isrecommended and has been scheduled. Findings and recommendations werediscussed the patient in person. BI-RADS CATEGORY: 4A - LOW SUSPICION FOR MALIGNANCY RECOMMENDATION: Core biopsy of right breast recommended. Core biopsy of right breastrecommended. Core biopsy of right breast recommended. Core biopsy of rightbreast recommended. Mammo Location: [facility], [address] [place] [address], [id number], . . -------- FINAL REPORT -------- Dictated By: Maria E Paredes Dictated Date: 03/02/2025 09:35 ET Assigned Physician: Maria E Paredes Reviewed and Electronically Signed By: Maria E Paredes Signed Date: 03/02/2025 10:06 ET Workstation ID: [id number] Transcribed By: Self Edit Transcribed Date: 03/02/2025 09:46 ET Nasrin Hart MD IMG BI PROCEDURES Final Result * CT Head wo Contrast (02/25/2025 1:39 PM EDT) Anatomical Region Laterality Modality Head and Neck Computed Tomogra phy 02/25/2025 1:54 PM EDT Impressions 02/25/2025 2:14 [address]T Normal head CT. -------- FINAL REPORT -------- Dictated By: Daniel Epperson Dictated Date: 02/25/2025 13:54 ET Assigned Physician: Daniel Epperson Reviewed and Electronically Signed By: Daniel Epperson Signed Date: 02/25/2025 14:14 ET Workstation ID: [id number] Transcribed By: Self Edit Transcribed Date: 02/25/2025 13:54 ET Narrative 02/25/2025 2:14 PM EDT PROCEDURE: Noncontrast head CT. HISTORY: Dizziness, non-specific. COMPARISON: 11/17/2020. TECHNIQUE: Noncontrast head CT with coronal and sagittal reformats. Dose length product: 1070 mGy-cm. FINDINGS: BRAIN: No hemorrhage, edema, mass, or extra-axial fluid collection. No CT evidence of an acute large vessel infarct. Ventricles and sulci are age commensurate. ORBITS: Normal. SINUSES/MASTOIDS: The frontal sinuses are not pneumatized. CALVARIUM: Normal. OTHER: The skull base soft tissues are normal. Procedure Note Daniel Epperson MD - 02/25/2025 PROCEDURE: Noncontrast head CT. HISTORY: Dizziness, non-specific. COMPARISON: 11/17/2020. TECHNIQUE: Noncontrast head CT with coronal and sagittal reformats. Dose length product: 1070 mGy-cm. FINDINGS: BRAIN: No hemorrhage, edema, mass, or extra-axial fluid collection. No CTevidence of an acute large vessel infarct. Ventricles and sulci are agecommensurate. ORBITS: Normal. SINUSES/MASTOIDS: The frontal sinuses are not pneumatized. CALVARIUM: Normal. OTHER: The skull base soft tissues are normal. IMPRESSION: Normal head CT. -------- FINAL REPORT -------- Dictated By: Daniel Epperson Dictated Date: 02/25/2025 13:54 ET Assigned Physician: Daniel Epperson Reviewed and Electronically Signed By: Daniel Epperson Signed Date: 02/25/2025 14:14 ET Workstation ID: [id number] Transcribed By: Self Edit Transcribed Date: 02/25/2025 13:54 ET Nasrin Hart MD IMG CT PROCEDURES Final Result * ME INJECTION CARPAL TUNNEL THERAPEUTIC (01/27/2025 2:45 PM EDT) Lianne Lynne PA - 01/27/2025 2:45 PM EDT MALIK Estrada 01/27/2025 3:39 PM Hand / UE Inj/Asp: R carpal tunnel for carpal tunnel syndrome Indications: pain Details: 25 G needle, volar approach Medications: 0.5 mL lidocaine 1 %; 40 mg triamcinolone acetonide 40 mg/mL Informed Consent: Laterality: Right Relevant images/test results available and reviewed: yes Health status cleared: Yes Procedure/treatment, purpose, treatment alternatives, risks/potential complications and benefits explained: yes Risk/complications/benefits details: Risks of infection, thinning of the skin and temporary skin discoloration discussed. Discussed risks of temporary increased pain after injection and swelling and mild redness at injection site for couple days. Explained occasionally cortisone injection can cause facial flushing temporarily. Benefits pain management. For postop injection pain ice, Tylenol and/or NSAIDs if patient can take Patient questions answered: yes Patient agrees, verbalizes understanding, and wants to proceed: yes Consent given by: Patient Informed consent discussion completed by Physician/DEMI with patient: Verbal Pre-procedure timeout performed: yes us Lianne GAN IN CLINIC/BEDSIDE ORDERABLES Final Result * (ABNORMAL) Lipid panel with reflex to direct LDL (12/09/2024 10:19 AM EDT) Cholesterol 145 0 - 200 mg/dL LAB CHEMISTRY METHOD 12/09/2024 1:45 PM EDT [facility] Triglycerides 161(H) 0 - 150 mg/dL LAB CHEMISTRY METHOD 12/09/2024 1:45 PM EDT [facility] HDL 57 >=40 mg/dL LAB CHEMISTRY METHOD 12/09/2024 1:45 PM EDT [facility] LDL Calculated 56 0 - 100 mg/dL LAB CHEMISTRY METHOD 12/09/2024 1:45 PM EDT [facility] VLDL Cholesterol Brody 32.2 mg/dL LAB CHEMISTRY METHOD 12/09/2024 1:45 PM EDT [facility] Non HDL Chol. (LDL+VLDL) 88 <145 mg/dL LAB CHEMISTRY METHOD 12/09/2024 1:45 PM EDT [facility] Chol/HDL Ratio 2.5 0.0 - 4.4 LAB CHEMISTRY METHOD 12/09/2024 1:45 PM EDT [facility] Blood Venous blood specimen / Unknown Venipuncture / Unknown 12/09/2024 10:19 AM EDT 12/09/2024 10:19 AM EDT us Nasrin Hart MD LAB BLOOD ORDERABL ES Final Result [facility] [address] [place] [address], * COLONOSCOPY Anesthesia - [facility]; [facility] ENDOSCOPY (09/08/2024 3:16 PM EST) Anatomical Region Laterality Modality Endoscopy 09/08/2024 2:51 PM EST Impressions 09/08/2024 3:17 PM EST - One diminutive polyp in the cecum, removed with a jumbo cold forceps. Resected and retrieved. - One 5 mm polyp in the sigmoid colon, removed with a cold snare. Resected and retrieved. - Internal hemorrhoids. - Diverticulosis in the sigmoid colon. Recommendation: - Discharge patient to home. - Await pathology results. - Repeat colonoscopy in 5 years for surveillance. Narrative 09/08/2024 3:17 PM EST [facility] GI Patient Name: Mercy Ellis Procedure Date: 09/08/2024 2:51 PM Date of : 1980 Age: 43 Gender: Female Note Status: Finalized Attending MD: Antoine Perez MD, Procedure Date No Time: 09/08/2024 Procedure: Colonoscopy Indications: Screening in patient at increased risk: Colorectal cancer in father 60 or older Providers: Antoine Perez MD Referring MD: Antoine Perez MD Medicines: Monitored Anesthesia Care Complications: No immediate complications. Estimated blood loss: Minimal. Estimated Blood Loss: Estimated blood loss was minimal. Procedure: Pre-Anesthesia Assessment: - Prior to the procedure, a History and Physical was performed, and patient medications and allergies were reviewed. The patient is competent. The risks and benefits of the procedure and the sedation options and risks were discussed with the patient. All questions were answered and informed consent was obtained. Patient identification and proposed procedure were verified by the physician, the nurse, the kitchen helper and the tree and shrub technician in the pre-procedure area in the endoscopy suite. Mental Status Examination: alert and oriented. Airway Examination: normal oropharyngeal airway and neck mobility. Respiratory Examination: clear to auscultation. CV Examination: normal. Prophylactic Antibiotics: The patient does not require prophylactic antibiotics. Prior Anticoagulants: The patient has taken no anticoagulant or antiplatelet agents. ASA Grade Assessment: III - A patient with severe systemic disease. After reviewing the risks and benefits, the patient was deemed in satisfactory condition to undergo the procedure. The anesthesia plan was to use monitored anesthesia care (MAC). Immediately prior to administration of medications, the patient was re-assessed for adequacy to receive sedatives. The heart rate, respiratory rate, oxygen saturations, blood pressure, adequacy of pulmonary ventilation, and response to care were monitored throughout the procedure. The physical status of the patient was re-assessed after the procedure. After I obtained informed consent, the scope was passed under direct vision. Throughout the procedure, the patient's blood pressure, pulse, and oxygen saturations were monitored continuously. The Colonoscope was introduced through the anus and advanced to the cecum, identified by appendiceal orifice and ileocecal valve. The colonoscopy was performed without difficulty. The patient tolerated the procedure. The quality of the bowel preparation was excellent. Findings: The perianal and digital rectal examinations were normal. A diminutive polyp was found in the cecum. The polyp was sessile. The polyp was removed with a jumbo cold forceps. Resection and retrieval were complete. Estimated blood loss was minimal. A 5 mm polyp was found in the sigmoid colon. The polyp was sessile. The polyp was removed with a cold snare. Resection and retrieval were complete. Estimated blood loss was minimal. Internal hemorrhoids were found during retroflexion. The hemorrhoids were Grade I (internal hemorrhoids that do not prolapse). Scattered small-mouthed diverticula were found in the sigmoid colon. Procedure Code(s): --- Professional --- 95873, Colonoscopy, flexible; with removal of tumor(s), polyp(s), or other lesion(s) by snare technique 68586, 59, Colonoscopy, flexible; with biopsy, single or multiple Diagnosis Code(s): --- Professional --- D12.0, Benign neoplasm of cecum D12.5, Benign neoplasm of sigmoid colon CPT copyright 2020 [employer]. All rights reserved. The codes documented in this report are preliminary and upon math and sciences department chair review may be revised to meet current compliance requirements. Antoine Perez MD 09/08/2024 3:16:55 PM This report has been signed electronically.Antoine Perez MD Number of Addenda: 0 Note Initiated On: 09/08/2024 2:51 PM Scope Withdrawal Time: 0 hours 14 minutes 14 seconds Scope In: 2:56:46 PM Scope Out: 3:14:25 PM Endoscopy Department at [facility] - [address] [place] [phone] Procedure Note Antoine Perez MD - 09/08/2024 [facility] GI Patient Name: Mercy Ellis Procedure Date: 09/08/2024 2:51 PM Date of : 1980 Age: 43 Gender: Female Note Status: Finalized Attending MD: Antoine Perez MD, Procedure Date No Time: 09/08/2024 Procedure: Colonoscopy Indications: Screening in patient at increased risk: Colorectal cancer in father 60 or older Providers: Antoine Perez MD Referring MD: Antoine Perez MD Medicines: Monitored Anesthesia Care Complications: No immediate complications. Estimated blood loss: Minimal. Estimated Blood Loss: Estimated blood loss was minimal. Procedure: Pre-Anesthesia Assessment: - Prior to the procedure, a History and Physicalwas performed, and patient medications and allergieswere reviewed. The patient is competent. The risks and benefits of the procedure and the sedation optionsand risks were discussed with the patient. Allquestions were answered and informed consent was obtained. Patient identification and proposed procedure were verified by the physician, the nurse, theanesthetist and the tree and shrub technician in the pre-procedure area in the endoscopy suite. Mental Status Examination: alertand oriented. Airway Examination: normal oropharyngeal airway and neck mobility. Respiratory Examination: clear to auscultation. CV Examination: normal. Prophylactic Antibiotics: The patient does notrequire prophylactic antibiotics. Prior Anticoagulants: The patient has taken no anticoagulant or antiplatelet agents. ASA Grade Assessment: III - A patient with severe systemic disease. After reviewing the risksand benefits, the patient was deemed in satisfactory condition to undergo the procedure. The anesthesia plan was to use monitored anesthesia care (MAC). Immediately prior to administration of medications, the patient was re-assessed for adequacy to receive sedatives. The heart rate, respiratory rate, oxygen saturations, blood pressure, adequacy of pulmonary ventilation, and response to care were monitored throughout the procedure. The physical status ofthe patient was re-assessed after the procedure. After I obtained informed consent, the scope was passed under direct vision. Throughout theprocedure, the patient's blood pressure, pulse, and oxygen saturations were monitored continuously. The Colonoscope was introduced through the anus and advanced to the cecum, identified by appendiceal orifice and ileocecal valve. The colonoscopy was performed without difficulty. The patient tolerated the procedure. The quality of the bowel preparation was excellent. Findings: The perianal and digital rectal examinations were normal. A diminutive polyp was found in the cecum. Thepolyp was sessile. The polyp was removed with a jumbocold forceps. Resection and retrieval were complete. Estimated blood loss was minimal. A 5 mm polyp was found in the sigmoid colon. Thepolyp was sessile. The polyp was removed with a coldsnare. Resection and retrieval were complete. Estimatedblood loss was minimal. Internal hemorrhoids were found duringretroflexion. The hemorrhoids were Grade I (internal hemorrhoids that do not prolapse). Scattered small-mouthed diverticula were found inthe sigmoid colon. Procedure Code(s): --- Professional --- 11542, Colonoscopy, flexible; with removal of tumor(s), polyp(s), or other lesion(s) by snare technique 67404, 59, Colonoscopy, flexible; with biopsy,single or multiple Diagnosis Code(s): --- Professional --- D12.0, Benign neoplasm of cecum D12.5, Benign neoplasm of sigmoid colon CPT copyright 2020 [employer]. All rights reserved. The codes documented in this report are preliminary and upon math and sciences department chair reviewmay be revised to meet current compliance requirements. Antoine Perez MD 09/08/2024 3:16:55 PM This report has been signed electronically.Antoine Perez MD Number of Addenda: 0 Note Initiated On: 09/08/2024 2:51 PM Scope Withdrawal Time: 0 hours 14 minutes 14 seconds Scope In: 2:56:46 PM Scope Out: 3:14:25 PM Endoscopy Department at [facility] - [address] [place] [id number] IMPRESSION: - One diminutive polyp in the cecum, removed with a jumbo cold forceps. Resected and retrieved. - One 5 mm polyp in the sigmoid colon, removed witha cold snare. Resected and retrieved. - Internal hemorrhoids. - Diverticulosis in the sigmoid colon. Recommendation: - Discharge patient to home. - Await pathology results. - Repeat colonoscopy in 5 years for surveillance. us Antoine Perez MD GI~PROCEDURE ORDERABLES Fin al Result * Comprehensive metabolic panel (06/19/2024 9:30 AM EST) Sodium 140 133 - 145 mmol/L LAB CHEMISTRY METHOD 06/19/2024 12:28 PM [facility] Potassium 4.6 3.5 - 5.5 mmol/L LAB CHEMISTRY METHOD 06/19/2024 12:28 PM [facility] Chloride 107 96 - 110 mmol/L LAB CHEMISTRY METHOD 06/19/2024 12:28 PM [facility] CO2 30 21 - 32 mmol/L LAB CHEMISTRY METHOD 06/19/2024 12:28 PM [facility] Anion Gap 3 3 - 11 LAB CHEMISTRY METHOD 06/19/2024 12:28 PM [facility] Glucose 90 70 - 100 mg/dL LAB CHEMISTRY METHOD 06/19/2024 12:28 PM [facility] BUN 10 5 - 25 mg/dL LAB CHEMISTRY METHOD 06/19/2024 12:28 PM [facility] Creatinine 0.76 0.50 - 1.10 mg/dL LAB CHEMISTRY METHOD 06/19/2024 12:28 PM [facility] eGFR 99 >=60 mL/min/1. 73m2 LAB CHEMISTRY METHOD 06/19/2024 12:28 PM [facility] Comment:Calculation based on the Chronic Kidney Disease Epidemiology Collaboration (CKD-EPI) equation refit without adjustment for race. BUN/Creatinine Ratio 13.2 LAB CHEMISTRY METHOD 06/19/2024 12:28 PM [facility] Calcium 9.3 8.5 - 10.5 mg/dL LAB CHEMISTRY METHOD 06/19/2024 12:28 PM [facility] AST (SGOT) 17 10 - 42 unit/L LAB CHEMISTRY METHOD 06/19/2024 12:28 PM [facility] ALT (SGPT) 23 10 - 60 unit/L LAB CHEMISTRY METHOD 06/19/2024 12:28 PM [facility] Alkaline Phosphatase 60 42 - 121 unit/L LAB CHEMISTRY METHOD 06/19/2024 12:28 PM [facility] Total Protein 7.3 6.0 - 8.0 g/dL LAB CHEMISTRY METHOD 06/19/2024 12:28 PM EST [facility] Albumin 3.4 3.2 - 5.0 g/dL LAB CHEMISTRY METHOD 06/19/2024 12:28 PM EST [facility] Total Bilirubin 0.3 0.0 - 1.4 mg/dL LAB CHEMISTRY METHOD 06/19/2024 12:28 PM EST [facility] Blood Venous blood specimen / Unknown Venipuncture / Unknown 06/19/2024 9:30 AM EST 06/19/2024 9:30 AM EST Nasrin Hart MD LAB BLOOD ORDERABL ES Final Result [facility] [address] [place] [address], * Depression Screening (10/14/2023) Pathologist [facility] Depression Screening abstracted Historical Provider HEALTH MAINTENANCE Final Result * HIV Screening (11/08/2020) [facility] HIV Screening abstracted Historical Provider HEALTH MAINTENANCE Final Result * Hepatitis C Screening (11/08/2020) [facility] Hepatitis C Screening abstracted Historical Provider HEALTH MAINTENANCE Final Result * Cervical Cancer Screening: HPV (10/10/2020) [facility] Cervical Cancer Screening: HPV negative, abstracted Historical Provider HEALTH MAINTENANCE Final Result from Last 3 Months or Most Recently Relevant to Health Maintenance Insurance [employer] MEDICARE Advance Directives * Full Code - Default (Latest Code Status on File) Date Activated Date Inactivated Comments 10/06/2024 12:04 PM 10/06/2024 7:09 PM This is order is used when code status has not been discussed with the patient, or code status is otherwise unknown/unconfirmed To update the patient's code status, place a code status order. Do not modify or discontinue any currently active code status orders. Care Teams Willower Relationship Specialty Start Date End Date Nasrin Hart MD [address] [place] [id number] PCP - General Internal Medicine 03/05/22
--- OUTSIDE RECORDS SUMMARY | 2025-04-01 21:05 | XMS_ITS | Clinical Summary ---
Author Organization [facility] Address [address] [place] [address] Care Team Providers Care Cryptoanalysis Teacher Name Role Phone Ivonne Wilkerson DO Primary Care P rovider Allergies Active Allergy Reactions Criticality Noted Date Comments Azithromycin Medium 08/11/2019 Other reaction(s): Rash/Dermatitis Itch and rash on arms Benralizumab Anaphylaxis High 03/03/2019 Chest tightness and globus sensation that resolved after use of EPinephrine Dupilumab 01/29/2020 Other reaction(s): Rash/Dermatitis Injection site reaction Penicillins 02/06/2013 Other reaction(s): Hives/Urticaria Pollen Extract 02/19/2017 Medications Medication Sig Dispensed Refills Start Date End Date Status diazePAM (VALIUM) 2 MG tablet Take 2 mg by mouth. 0 Activ e albuterol (VENTOLIN HFA) 108 (90 Base) MCG/ACT inhaler Inhale 2 puffs into the lungs. 0 09/24/2019 Active montelukast (SINGULAIR) 10 MG tablet Take 10 mg by mouth every night at bedtime. 0 04/06/2020 Active DALIRESP 500 MCG tablet Take 1 tablet by mouth daily. 0 04/09/2020 Active SPIRIVA RESPIMAT 1.25 MCG/ACT AERS INHALE 2 PUFFS INTO THE LUNGS DAILY FOR 90 DAYS. 0 02/25/2020 Active divalproex (DEPAKOTE) 500 MG 24 hr tablet TAKE 2 TABLETS BY MOUTH EVERY DAY AT BEDTIME 0 02/15/2020 Active gabapentin (NEURONTIN) 300 MG capsule TAKE 3 CAPS BY MOUTH IN THE MORNING, 2 CAPS IN THE AFTERNOON, AND 2 CAPS AT BEDTIME 0 01/04/2020 Active Valproate Sodium (VALPROIC ACID) 250 MG/5ML SOLN TAKE 5 ML (250 MG) IN THE MORNING & 10 ML (500 MG) IN THE EVENING 0 04/14/2020 Active amitriptyline (ELAVIL) 100 MG tablet Take 100 mg by mouth every night at bedtime. 0 02/15/2020 Active amitriptyline (ELAVIL) tablet 50 mg Take 50 mg by mouth every night at bedtime. 0 02/15/2020 Active DULoxetine (CYMBALTA) DR capsule 60 mg Take 60 mg by mouth daily. 0 03/02/2020 Active traZODone (DESYREL) 100 MG tablet Take 200 mg by mouth every night at bedtime as needed. 0 02/15/2020 Active levocetirizine (XYZAL) 5 MG tablet Take 5 mg by mouth daily. 0 04/26/2020 Active atorvastatin (LIPITOR) tablet 10 mg Take 10 mg by mouth every night at bedtime. 0 04/09/2020 Active prazosin (MINIPRESS) 2 MG capsule TAKE 1 CAPSULE BY MOUTH IN THE MORNING AND TAKE 3 CAPSULES AT BEDTIME 0 02/15/2020 Active fluticasone (FLONASE) 50 MCG/ACT nasal spray spray or apply 50 mcg inside Nose. 0 04/26/2020 Active ipratropium (ATROVENT) 0.03 % nasal spray USE 2 SPRAYS BY NASAL ROUTE EVERY 12 HOURS 0 02/17/2020 Active hydroCHLOROthiazide (HYDRODIURIL) tablet 25 mg TAKE 1 TABLET BY MOUTH EVERY DAY 0 04/07/2020 Active levoFLOXacin (LEVAQUIN) 500 MG tablet Take 500 mg by mouth daily. 0 02/02/2020 Active vitamin B-12 (CYANOCOBALAMIN) tablet 1000 mcg Take 1,000 mcg by mouth. 0 07/24/2018 Active SUMAtriptan (IMITREX) 50 MG tablet TAKE 1 TAB BY MOUTH DAILY NEEDED FOR MIGRAINE. MAY REPEAT DOSE ONCE AFTER 2 HOURS, IF NEEDED. 0 04/21/2020 Active ketotifen (ZADITOR) 0.025 % ophthalmic solution Apply 1 drop to eye. 0 04/26/2020 Active EPINEPHrine 0.3 MG/0.3ML SOAJ INJECT 1 DEVICE DIRECTED NEEDED (ANAPHYLAXIS). USE DIRECTED 0 04/26/2020 Active methocarbamol (ROBAXIN) 500 MG tablet TAKE 1 TAB BY MOUTH 3 TIMES DAILY NEEDED (MUSCLE PAIN). 0 08/12/2019 Active levothyroxine (SYNTHROID, LEVOXYL) tablet 25 mcg Take 25 mcg by mouth daily. 0 03/19/2020 Active dicyclomine (BENTYL) 10 MG capsule TAKE 1 CAP BY MOUTH 4 TIMES DAILY (BEFORE MEALS AND NIGHTLY). NEEDED 0 04/22/2020 Active famotidine (PEPCID) 20 MG tablet Take 20 mg by mouth 2 (two) times a day. 0 04/09/2020 Active Cholecalciferol (VITAMIN D3) 50 MCG (2000 UT) capsule TAKE 1 CAPSULE BY MOUTH EVERY DAY 0 02/11/2020 Active azelastine (ASTEPRO) 0.15 % nasal spray 2 sprays 2 (two) times a day. 0 04/26/2020 Active CALCIUM PO Take by mouth. 0 Active vitamin C (ASCORBIC ACID) 250 MG tablet Take 250 mg by mouth daily. 0 Active Fluticasone Furoate-Vilanterol 200-25 MCG/INH AEPB Inhale 1 puff into the lungs daily. 0 Active diphenhydrAMINE (BENADRYL) 50 MG capsule Take 150 mg by mouth every 6 (six) hours as needed. 0 Active Active Problems Problem Noted Date Diagnosed Date Vocal cord dysfunction 05/12/2020 Depression 05/11/2020 Drug reaction 04/26/2020 Allergic conjunctivitis of both eyes 12/21/2019 Breast fibroadenoma in female, left 08/12/2019 Current chronic use of systemic steroids 019 Perennial allergic rhinitis 06/23/2019 GERD (gastroesophageal reflux disease) 9 Obese 03/20/2019 PLMD (periodic limb movement disorder) 8 Obstructive sleep apnea syndrome 05/05/2018 Overview: Overview: [facility] [place]: Date 03/13/2017; Wt 256#; SE 93%; SM 92%; REM 2%; AHI 12, REM AHI 71, Central apneas 6; Obstructive apneas 0; Mixed apneas 1; hypopneas 66; average oxygen saturation 95% (lowest 88%); PLMs 2. [facility] Polysomnogram: Date 05/19/2018; Wt 279# SE 74%; SM 90%; REM 15%; RDI 14 (AHI 14), REM (RDI 70 - AHI 70), Central apneas 0; Obstructive apneas 0; Mixed apneas 0; hypopneas 64; RERAs 0; average oxygen saturation 93% (lowest 84% - without saturations <88% for 5% or more of study); PLMs 16. [facility] Polysomnogram treatment study. Date 06/01/2018. SE 94 [...] hypoventilation by 2018 polysomnogram. Inclusion cyst 10/25/2017 Overview: Last Assessment & Plan: Reviewed this is [...] concerns. LGSIL of cervix of undetermined significance Overview: Overview: 06/21/17 ASCUS, positive HRPV 08/29/17 Colpo negtive biopsy 07/16/19 LGSIL 09/14/2019 Neg colopo H. pylori infection 02/19/2017 Vitamin D deficiency 02/19/2017 Hypothyroidism 02/22/2016 IBS (irritable bowel syndrome) 05/05/2015 Anxiety 04/14/2014 Bipolar disorder 04/14/2014 Overview: Overview: [facility] Laura Morocho ([facility]) Family history of uterine cancer 03/11/2014 Dyslipidemia 03/10/2013 Asthma 02/06/2013 Cervical disc disease 02/06/2013 Fibromyalgia 02/06/2013 Overview: Overview: Onset 10/13. Reported somewhat better on Cymbalta, gabapentin Seasonal allergies 02/06/2013 Family History Medical History Relation Name Comments Allergic rhinitis Child Allergies Child food allergies Urticaria Child Allergic rhinitis Maternal Aunt Allergic rhinitis Maternal Uncle Allergic rhinitis Mother Allergic rhinitis Son Asthma Son Eczema Neg Hx Immunodeficiency Neg Hx Relation Name Status Comments Child Maternal Aunt Maternal Uncle Mother Son Social History Tobacco Use Types Packs/Day Years Used Date Smoking Tobacco: Former Cigarettes 15 Smokeless Tobacco: Never Alcohol Use Standard Drinks/Week Comments No 0 (1 standard drink = 0.6 oz pur e alcohol) Sex and Gender Information Value Date Recorded Sex Assigned at Female 05/06/2020 10:10 AM EDT Gender Identity Not on file Sexual Orientation Not on file Job Start Date Occupation Industry Not on file Not on file Not on file Last Filed Vital Signs Vital Sign Reading Time Taken Comments Blood Pressure - - Pulse 120 05/11/2020 1:01 PM EDT not a vailable Temperature - - Respiratory Rate 16 05/11/2020 1:01 PM EDT Oxygen Saturation - - Inhaled Oxygen Concentration - - Weight 132.5 kg (292 lb) 05/11/2020 1:01 PM EDT Height 167.6 cm (5' 6 ) 05/11/2020 1:01 PM EDT Body Mass Index 47.13 05/11/2020 1:01 PM EDT Plan of Treatment Health Maintenance Due Date Last Done Comments Hepatitis B Vaccines (1 of 3 - 3-dose series) 1980 Hepatitis C Screening 1980 COVID-19 Vaccine (#1) 1983 Depression Screening 1990 BMI Counseling 1996 Preventative Health Evaluation 1996 Cervical Cancer Screening (Pap Smear) 1999 Pneumococcal Vaccine (2 of 2 - PCV) 05/08/2018 05/08/2017 Colon Cancer Screening (Colonoscopy) 2023 DTap / Tdap / Td (2 - Td or Tdap) 12/01/2024 12/01/2014 Influenza Vaccine (#1) 2025 8, 05/08/2017, 05/19/2013 RSV Ped < 20 months Aged Out No longe r eligible based on patient's age to complete this topic Care Teams Cryptoanalysis Teacher Relationship Specialty Start Date End Date Ivonne Wilkerson DO PCP - General Lawn Care Worker 05/06/20
[2025-04-01 21:29] VITALS: PULSE 72
[2025-04-01 21:34] VITALS: PULSE 71
[2025-04-01 21:35] VITALS: BP 132/79; PULSE 70; RESP 16; O2SAT 100
[2025-04-01 21:58] VITALS: BP 132/79; PULSE 70; RESP 16; TEMP 36.8; O2SAT 100
[2025-04-01 22:02] VITALS: BP 132/79; PULSE 70; RESP 16; TEMP 36.8; O2SAT 100
== END 2025-04-01 22:03 | disposition home or self-care (01) ==
PROVIDERS: Physician Assistant Medical; Emergency Provider Emergency Medicine; PCP Internal Medicine
DX: R07.89 Other chest pain (principal); H65.02 Acute serous otitis media, left ear; I49.9 Cardiac arrhythmia, unspecified; R00.2 Palpitations; I48.91 Unspecified atrial fibrillation; R06.02 Shortness of breath; Z79.899 Other long term (current) drug therapy
CPT/HCPCS: 36415; 71046; 80048; 80076; 83735; 84443; 84484; 85025; 93005; 99283; 99285

== ENCOUNTER → 2025-04-01 16:52 | Outpatient (BNV) | payer MEDICARE, SELFPAY | PROVIDERS: Emergency Provider Emergency Medicine; PCP Internal Medicine; Visit Provider Internal Medicine | DX: R94.31 Abnormal electrocardiogram [ECG] [EKG] (principal); R07.9 Chest pain, unspecified | CPT/HCPCS: 93010 ==

== ENCOUNTER → 2025-04-01 17:26 | Outpatient (BNV) | payer MEDICARE, SELFPAY | PROVIDERS: Visit Provider Specialist | DX: R07.9 Chest pain, unspecified (principal) | CPT/HCPCS: 71046 ==

== ENCOUNTER 2025-05-19 14:25 | Outpatient (REF) | payer MEDICARE, SELFPAY ==
[2025-05-19 16:13] LABS: MANUAL DIFF FLAG NO
[2025-05-19 16:17] LABS: Hematocrit 41.8 % (37.0-47.0); Hemoglobin 13.1 g/dl (12.0-16.0); Imm Gran Abs Auto 0.02 X10*3/uL (0.00-0.03); Imm Gran Pct Auto 0.3 % (0.0-0.4); Lymphocytes Absolute Auto 1.5 X10*3/uL (1.2-4.9); Mean Corpuscular HGB Conc 31.3 g/dl (31.0-35.0); Mean Corpuscular Hemoglobin 27.9 pg (27.0-33.0); Mean Corpuscular Volume 89.1 fL (80.0-98.0); NRBC Abs Auto 0.000 X10*3/uL (0.0-0.012); NRBC Pct Auto 0.0 /100WBC (0.0-0.2); Platelet Count 276 X10*3/uL (160-400); Red Blood Count 4.69 X10*6/uL (4.20-5.50); White Blood Count 7.5 X10*3/uL (4.8-10.8)
[2025-05-19 16:47] LABS: Alanine Aminotransferase 21 U/L (0-31); Albumin Level 4.3 g/dL (3.5-5.0); Alkaline Phosphatase 53 U/L (39-117); Anion Gap 9 (12-20); Aspartate Amino Transferase 22 U/L (5-31); Blood Urea Nitrogen 9 mg/dL (9-16); Calcium 9.2 mg/dL (8.4-10.2); Carbon Dioxide 28 mmol/L (22-29); Chloride 108 mmol/L (96-108); Estimated Glomerular Filt Rate > 60; Potassium 3.8 mmol/L (3.3-5.1); Sodium 141 mmol/L (135-145); Total Protein 7.2 g/dL (6.5-8.0)
--- OUTSIDE RECORDS SUMMARY | 2025-05-19 18:10 | XMS_ITS | Clinical Summary ---
Author Organization [facility] Address [address] [place] [address] Care Team Providers Care Managed Care Manager Name Role Phone Ivonne Wilkerson DO Primary [...] Obstructive sleep apnea syndrome 05/05/2018 Overview: Overview: [facility] [place]: Date 03/13/2017; Wt 256#; SE 93%; SM 92%; REM 2%; AHI 12, REM AHI 71, Central apneas 6; Obstructive apneas 0; Mixed apneas 1; hypopneas 66; average oxygen saturation 95% (lowest 88%); PLMs 2. [facility] [place] Polysomnogram: Date 05/19/2018; Wt 279# SE 74%; [...] disorder 04/14/2014 Overview: Overview: Dr. Laura Morocho ([facility]) Family history of uterine cancer 03/11/2014 [...] age to complete this topic Care Teams Managed Care Manager Relationship Specialty Start Date End Date Ivonne Wilkerson DO PCP - General Research Mechanic 05/06/20
== END 2025-05-19 14:26 | disposition home or self-care (01) ==
LOC: HO.HHCL 14:25
PROVIDERS: PCP Internal Medicine; Visit Provider Psychiatry & Neurology Psychiatry
DX: Z79.899 Other long term (current) drug therapy (principal)
CPT/HCPCS: 36415; 80053; 82248; 83036; 84443; 85025

== ENCOUNTER 2025-06-21 17:20 | Emergency (ER) | payer MEDICARE, SELFPAY ==
--- NOTE | ~2025-06-21 | XR_ITS ---
CLINICAL HISTORY: coughing Single view of the chest. COMPARISON: XR chest dated 04/01/25 at 17:41 EDT FINDINGS: Surgical clips present along the left lower neck. Normal heart and mediastinal contours. No consolidation. No pleural effusion or pneumothorax. No acute fracture. IMPRESSION: 1. No consolidation. This document has been electronically signed by: Doc aHrt MD on 06/21/2025 18:34:53
[2025-06-21 17:44] VITALS: BP 152/90; PULSE 82; RESP 18; TEMP 36.6; O2SAT 99; BMI 42.9
[2025-06-21 18:06] LABS: IDNOW Serial# 55D5AD1C; Strep A Nucleic Acid Negative (Negative)
--- NOTE | 2025-06-21 18:36 | ED_ITS ---
HPI - General Adult General Chief complaint: Upper Respiratory Symptoms Stated complaint: Cough Congestion Running Nose Time Seen by Provider: 06/21/25 19:15 Source: patient Mode of arrival: ambulatory Limitations: no limitations History of Present Illness ED Provider: Deanne Temple HPI narrative: 44-year-old female history of asthma presents to ED for coughing up green phlegm, sore throat, body aches and chills and headache. Patient denies any leg swelling, calf pain, eye pain, change in vision, weakness, or dizziness. Related Data Previous Rx's ?Medication ?Instructions ?Recorded benzonatate 100 mg capsule 100 mg PO TID PRN coughing #20 caps 07/28/20 (Tessalon Perles) loratadine 10 mg tablet (Claritin) 10 mg PO DAILY trina rgies #10 tabs 07/28/20 prednisone 20 mg tablet 40 mg (2 x 20 mg) PO DAILY # 10 tabs 07/28/20 azithromycin 250 mg tablet See Rx Instructions PO .COM PLEX #6 08/01/20 tabs acetaminophen 500 mg tablet 500 mg PO Q6H PRN fever or pain 11/29/22 (Tylenol Extra Strength) #14 tabs cyclobenzaprine 5 mg tablet 5 mg PO Q8H PRN pain (scal e score 11/29/22 7-10) 5 days #14 tabs lidocaine 5 % topical patch 1 patch topical DAILY PRN pain #30 11/29/22 (Lidoderm) ea naproxen 500 mg tablet 500 mg PO BID PRN pain 10 da ys #20 11/29/22 tabs albuterol sulfate 90 mcg/actuation 2 puff inhalation Q 4-6H PRN 12/10/22 aerosol inhaler shortness of breath or wheez ing #8.5 grams benzonatate 100 mg capsule 100 mg PO TID PRN cough #30 caps 12/10/22 doxycycline hyclate 100 mg tablet 100 mg PO BID #14 ta bs 12/10/22 hydrocodone-homatropine 5 mg-1.5 5 ml PO Q4-6H PRN cou gh #60 mL 12/10/22 mg/5 mL (5 mL) oral solution (Hycodan) prednisone 20 mg tablet 40 mg (2 x 20 mg) PO DAILY # 10 tabs 12/10/22 ketorolac 10 mg tablet 10 mg PO QID PRN pain 5 days #20 04/16/23 tabs benzonatate 200 mg capsule 200 mg PO TID PRN cough 5 d ays #15 06/21/25 caps doxycycline hyclate 100 mg capsule 100 mg PO BID 7 day s #14 caps 06/21/25 prednisone 20 mg tablet 40 mg (2 x 20 mg) PO DAILY 5 days 06/21/25 #10 tabs Allergies Allergy/AdvReac Type Severity Reaction Status Date / Time benralizumab (From [facility]) Allergy Unknown AIRWAY Verified 06/21/25 17:48 DISTRESS dog dander (DOGS) Allergy Unknown ASTHMA Verified 06/21/25 17:48 dupilumab (From [employer]) Allergy Unknown SKIN Verified 06/21/25 17:48 RASH/INFECTION pollen extracts (POLLEN) Allergy Unknown RUNNY NOSE Verified 06/21/25 17:48 azithromycin Allergy Rash Verified 06/21/25 17:48 penicillin Allergy Unknown Rash Uncoded 06/21/25 17:48 Review of Systems Review of Systems: Coughing green phlegm, headache, body aches, chills Yes all other systems are reviewed and are negative PMFSH Past Medical History Medical History Migraines Fibromyalgia Asthma Social History Social History Alcohol intake: never Patient Tobacco Use Status: Never used Tobacco Advance Directives: No Advance Directives Information Provided: No Physical Exam ED Vital Signs: Vital Signs - 24 hr 06/21/25 17:44 06/21/25 19:41 Temperature 97.8 F 97.3 F Pulse Rate 82 76 Respiratory Rate 18 16 Blood Pressure 152/90 H 129/69 Pulse Oximetry 99 99 Oxygen Delivery Method Room Air Room Air BMI result Body Mass Index 42.9 Const General: cooperative, healthy appearing, comfortable, no acute distress, well developed, alert, awake and Physically active Orientation/consciousness: patient oriented x3 HENMT Head: Yes normal to inspection, Yes No palpable skull fracture present, Yes normocephalic and Yes atraumatic Eyes General: appearance normal, both eyes and all related structures Visual Hdz: normal visual hdz by confrontation Alignment and Position: alignment normal Periorbital: periorbital findings normal Eyelids: Yes eyelids normal Conjunctivae: conjunctivae normal Sclerae: sclerae normal Corneas: corneas normal Pupils: Equal, round and reactive pupils present EOM: EOMs intact bilaterally Direct Ophthalmoscopy: normal light reflex Neck Neck: Yes normal visual inspection, Yes full ROM, Yes no lymphadenopathy, Yes no meningeal signs, Yes trachea midline, Yes supple, No anterior neck swelling and No tender Chest Chest palpation & inspection: normal inspection of the chest and normal palpation of entire chest wall Resp Effort & Inspection: normal respiratory effort and able to speak in complete sentences Auscultation: clear to auscultation bilaterally Cardio Jugular venous distension: no JVD Heart sounds: S1 normal heart sound present and S2 normal heart sound present GI Inspection: Yes normal to inspection Palpation (GI): Soft to palpation, not firm, nontender, no guarding and not rigid General: Yes no CVA tenderness Back/Spine/Pelvis Back: no CVA tenderness and No back tenderness Skin General skin exam: no rashes or lesions noted, elasticity normal and turgor normal Neuro General: patient oriented x3, gait normal, tone normal, moves all extremities, Normal light touch and pain sensation, no meningeal signs, no focal motor deficits, CN's II-XI intact bilaterally and normal sensation to monofilament Cranial nerves: Yes Equal, round and reactive pupils present Extrem General: Yes normal to inspection, Yes full ROM and Yes capillary refill normal Psych Appearance: grossly normal, well kempt and not disheveled Course Course Course Narrative: RME: 44-year-old female presents to ED for URI symptoms. Patient has coughing with green phlegm. Patient has history of asthma. X-ray swabs ordered Medical Decision Making Medical Decision Making [facility] Narrative: 44 yold female with pmh of asthma presents to the ED URI symptoms. COVID influenza strep came back negative. Chest x-ray negative pneumonia. Due to history of asthma were discharged with steroids, Tessalon Perles in his antibiotic. Patient already has albuterol inhaler at home. Not supecting PE, IA, CHF, Stroke, Glaucoma, Stroke, Corneal abrasions, pericaritits, myocardititis, or any other life threatening etiology. Differential Diagnosis Differential Diagnoses: The differential diagnosis associated with the presentation includes (COVID influenza RSV strep) Admission/Observation Consideration of admission/observation: Escalation of care including admission/observation considered Lab Data [facility] Lab Attestation statement: I reviewed the patient's lab results. Labs: Lab Results 11/17/25 Range/Units 17:54 Influenza Type A (PCR) NEGATIVE (Negative) Influenza Type B (PCR) NEGATIVE (Negative) RSV RNA Qual (PCR) NEGATIVE (Negative) SARS-CoV-2 RNA (RT-PCR) NEGATIVE (Negative) S. pyogenes GrpA GINNY Negative (Negative) Independent Interpretation I performed an independent interpretation of an: Plain X-Ray Radiology Impression Discussion of test interpretation with radiology: I have reviewed the radiologist's reading. Independent Historian Clinical information obtained from an independent historian. History obtained from or confirmed by: Other (patient) Prescription Management I considered prescription management with: Antibiotic Discharge Plan Discharge Clinical Impression: Asthma Patient Disposition: Home, Self-Care Instructions: Asthma (ED) Additional Instructions: Recommend follow up with primary care provider. Return to the ED for any chest pain, shortness of breath, weakness, dizziness, leg swelling, calf pain, coughing up blood, or any other concerning symptoms. Continue taking your albuterol inhaler as needed. Prescriptions: New prednisone 20 mg tablet 40 mg PO DAILY 5 Days Qty: 10 0RF benzonatate 200 mg capsule 200 mg PO TID PRN (Reason: cough) 5 Days Qty: 15 0RF doxycycline hyclate 100 mg capsule 100 mg PO BID 7 Days Qty: 14 0RF No Action benzonatate [Tessalon Perles] 100 mg capsule 100 mg PO TID PRN (Reason: coughing) Qty: 20 0RF loratadine [Claritin] 10 mg tablet 10 mg PO DAILY Qty: 10 0RF prednisone 20 mg tablet 40 mg PO DAILY Qty: 10 0RF azithromycin 250 mg tablet See Rx Instructions .ROUTE .COMPLEX Qty: 6 0RF Rx Instructions: take 500 mg today (day 1), then 250 mg for 4 days (days 2-5) lidocaine [Lidoderm] 5 % adhesive patch,medicated 1 patch topical DAILY MDD remove after 12 hours PRN (Reason: pain) Qty: 30 0RF Rx Instructions: leave on most painful area for up to 12 hrs cyclobenzaprine 5 mg tablet 5 mg PO Q8H PRN (Reason: pain (scale score 7-10)) 5 Days Qty: 14 0RF acetaminophen [Tylenol Extra Strength] 500 mg tablet 500 mg PO Q6H PRN (Reason: fever or pain) Qty: 14 0RF naproxen 500 mg tablet 500 mg PO BID PRN (Reason: pain) 10 Days Qty: 20 0RF prednisone 20 mg tablet 40 mg PO DAILY Qty: 10 0RF benzonatate 100 mg capsule 100 mg PO TID PRN (Reason: cough) Qty: 30 0RF albuterol sulfate 90 mcg/actuation HFA aerosol inhaler 2 puff inhalation Q4-6H PRN (Reason: shortness of breath or wheezing) Qty: 8.5 0RF hydrocodone-homatropine [Hycodan] 5-1.5 mg/5 mL (5 mL) syrup 5 ml PO Q4-6H PRN (Reason: cough) Qty: 60 0RF Rx Instructions: Partial Fill upon patient request. doxycycline hyclate 100 mg tablet 100 mg PO BID Qty: 14 0RF ketorolac 10 mg tablet 10 mg PO QID PRN (Reason: pain) 5 Days Qty: 20 0RF Referrals: Nasrin Singh MD [Primary Care Provider, Internal Medicine] - 2 days Referral Note: Asthma Clinical Impression: Asthma Stand Alone Forms: Work/School Release Interventions: ED Discharge Assessment Last Done: 06/21/25 19:41 Discharge Date/Time: 06/21/25 19:41 Print Language: Luxembourgish
[2025-06-21 18:39] LABS: Resp Syncy Virus RNA Qual PCR NEGATIVE (Negative); SARS COV2 PCR INHOUSE NEGATIVE (Negative)
--- NOTE | 2025-06-21 19:39 | PC.NURSE ---
pt discharge from triage, not original triage nurse, review discharge instructions with pt. pt verbalized understanding no sign of distress upon discharge.
[2025-06-21 19:41] VITALS: BP 129/69; PULSE 76; RESP 16; TEMP 36.3; O2SAT 99
== END 2025-06-21 19:41 | disposition home or self-care (01) ==
PROVIDERS: Physician Assistant; Emergency Provider Emergency Medicine; PCP Internal Medicine
DX: J45.909 Unspecified asthma, uncomplicated (principal); R05.9 Cough, unspecified; J02.9 Acute pharyngitis, unspecified; R51.9 Headache, unspecified; R68.83 Chills (without fever); Z03.818 Encounter for observation for suspected exposure to other biological agents ruled out
CPT/HCPCS: 71045; 87637; 87651; 99282; 99283

== ENCOUNTER → 2025-06-21 17:48 | Outpatient (BNV) | payer MEDICARE, SELFPAY | PROVIDERS: PCP Internal Medicine; Visit Provider Radiology Diagnostic Radiology | DX: R05.9 Cough, unspecified (principal) | CPT/HCPCS: 71045 ==